=== PATIENT | male | born 1955 | race Caucasian/White ===

== ENCOUNTER 2017-07-08 09:42 | Emergency (ER) | payer OTHER ==
[2017-07-08 09:59] VITALS: BP 110/62
--- NOTE | 2017-07-08 10:25 | UC ---
Cardiac HPI - HPI Summary HPI Summary: States that 2 days ago he was shoveling snow and experienced pain under left arm for which he took a tylenol and an ibuprofen and went to sleep. He states that he continues to have pain about 3/10 baseline which increases when moving his arm. States he is in the process of moving to this area and has been treated in [place]. - History of Current Complaint Chief Complaint: UCChestPain Stated Complaint: RIB PAIN Time Seen by Provider: 07/08/17 10:06 - Allergy/Home Medications Allergies/Adverse Reactions: Allergies Allergy/AdvReac Type Severity Reaction Status Date / Time Acetaminophen [From Tylenol] Allergy GI Upset Verified 07/08/17 10:01 Codeine Allergy GI Upset Verified 07/08/17 10:01 nsaids Allergy See Comment Uncoded 07/08/17 10:01 Home Medications: Home Medications Albuterol inh POWDER (NF) [Proair Respiclick] 108 mcg IN QID PRN 07/08/17 [ History Confirmed 07/08/17] Atenolol [Tenormin 100 MG] 100 mg PO BID 07/08/17 [History Confirmed 07/08/17] Buprenorphine HCl-Naloxone HCl [Suboxone] 2 mis SL DAILY 07/08/17 [History Confirmed 07/08/17] Cetirizine* [ZyrTEC 10 MG TAB*] 10 mg PO DAILY 07/08/17 [History Confirmed 07/08] Cholecalciferol [Vitamin D] 1,000 unit PO DAILY 07/08/17 [History Confirmed 12/18] Diltiazem HCl Coated Beads [Diltiazem HCl ER] 240 mg PO DAILY 07/08/17 [History Confirmed 07/08/17] Divalproex ER TAB(*) [Depakote ER TAB(*)] 250 mg PO DAILY 07/08/17 [History Confirmed 07/08/17] Lamotrigine [Lamictal] 100 mg PO BID 07/08/17 [History Confirmed 07/08/17] Methylphenidate HCl [Aptensio Xr] 30 mg .ROUTE DAILY 07/08/17 [History Confirmed 07/08/17] Multiple Vitamins W/ Minerals [Multivitamin Adults] 1 tab PO DAILY 07/08/17 [ History Confirmed 07/08/17] Multiple Vitamins W/ Minerals [Preservision Areds 2 + Mu] 1 tab PO DAILY [History Confirmed 07/08/17] Naloxone Nasal [place]* [Narcan Nasal [place]] 4 mg NASAL DAILY PRN 07/08/17 [ History Confirmed 07/08/17] Omeprazole CAP* [Prilosec CAP* 20 MG] 20 mg PO DAILY 07/08/17 [History Confirmed 07/08/17] QUEtiapine TAB* [SEROquel TAB*] 100 mg PO BEDTIME 07/08/17 [History Confirmed ] Sildenafil Citrate [Viagra] 100 mg PO DAILY PRN 07/08/17 [History Confirmed 12/18] ValACYclovir (*) [Valtrex 500 mg (*)] 500 mg PO DAILY 07/08/17 [History Confirmed 07/08/17] Warfarin TAB(*) [Coumadin TAB(*)] 10 mg PO DAILY 07/08/17 [History Confirmed 12/18] buPROPion SR TAB* [Wellbutrin SR TAB*] 200 mg PO BID 07/08/17 [History Confirmed 07/08/17] PMH/Surg Hx/FS Hx/Imm Hx Previously Healthy: Yes Cardiovascular History: Atrial Fibrillation Psychological History: Bipolar Disorder - Surgical History Surgical History: Yes Surgery Procedure, Year, and Place: gastric bypass, shoulder surgery. UVVP - Social History Alcohol Use: None Substance Use Type: Marijuana Substance Use Comment - Amount & Last Used: on buprenorphine Smoking Status (MU): Former Smoker Have You Smoked in the Last Year: Yes When Did the Patient Quit Smoking/Using Tobacco: December 2016 - Immunization History Most Recent Influenza Vaccination: fall 2016 Review of Systems All Other Systems Reviewed And Are Negative: Yes Physical Exam Triage Information Reviewed: Yes Appearance: No Pain Distress, Thin Vital Signs: Initial Vital Signs Temp 98.1 F 07/08/17 09:53 Pulse 105 07/08/17 09:53 Resp 16 07/08/17 09:53 BP 110/62 07/08/17 09:53 Pulse Ox 100 07/08/17 09:53 Vital Signs Reviewed: Yes Eye Exam: Normal ENT: Positive: Pharynx normal Neck exam: Normal Neck: Positive: Supple, Nontender, No Lymphadenopathy Respiratory: Positive: Lungs clear, No respiratory distress, No accessory muscle use - tenderness on palpation on left axilla and left shoulder on insertion of trapezius muscle Cardiovascular Exam: Other - bradycardia, with irregular rhythm - Assessment/Plan Course Of Treatment: muscle sprain. Start ibuprofen with food as indicated for 24 hrs and whenever needed thereafter for pain control. Range of motion as tolerated. Follow up with PCP - Clinical Impression Provider Diagnoses: Muscle sprain Discharge - Discharge Plan Condition: Stable Disposition: HOME Patient Education Materials: Musculoskeletal Pain (ED) Referrals: Christian Carter MD [Primary Care Provider] -
== END 2017-07-08 10:44 | disposition home or self-care (01) ==
LOC: UCEAST 09:42
DX: S46.912A Strain of unspecified muscle, fascia and tendon at shoulder and upper arm level, left arm, initial encounter (principal); R07.81 Pleurodynia; I48.91 Unspecified atrial fibrillation; Z79.01 Long term (current) use of anticoagulants; Z88.6 Allergy status to analgesic agent; Z88.5 Allergy status to narcotic agent; Z87.891 Personal history of nicotine dependence; X58.XXXA Exposure to other specified factors, initial encounter; Y92.9 Unspecified place or not applicable
CPT/HCPCS: 93005; 99212; G0463

== ENCOUNTER 2019-03-23 08:27 | Inpatient (IN) | payer OTHER ==
--- NOTE | 2019-03-23 08:56 | ED ---
Abdominal Pain/Male - HPI Summary HPI Summary: 63 year old M presenting to [facility] complains of severe right lower quadrant abdominal pain after doing some heavy lifting 3 weeks ago. Patient states he is from [place]. Patient states that he went to the ER in [place] 3 weeks ago where he had blood work done which showed elevated INR. Patient states he was discharged from the ER. Patient states that the right lower quadrant abdominal pain is back, describes the pain as sharp, and rates the pain 3/10 in severity. Patient reports dark stools. Patient states he called his doctor in [place] who recommended that he go to ER. Patient reports right leg weakness. Patient reports headache. Patient denies slurred speech, blurred vision. Patient states he recently took NSAIDs to treat his pain. Symptoms aggravated by movement. Symptoms alleviated by nothing. Patient states he has hx atrial fibrillation for which he takes Coumadin. Patient states he has hx gastric bypass. Last colonoscopy was in 2003. - History of Current Complaint Chief Complaint: EDAbdPain Stated Complaint: LOW ABD PAIN, BLACK STOOL Time Seen by Provider: 03/23/19 08:45 Hx Obtained From: Patient Onset/Duration: Lasting Weeks - 3, Still Present Severity Currently: Mild Pain Intensity: 3 Pain Scale Used: 0-10 Numeric Location: Discrete At: RLQ Character: Sharp Aggravating Factor(s): Movement Alleviating Factor(s): Nothing Associated Signs And Symptoms: Positive: Negative - blurred vision, slurred speech, Other - dark stools, right leg weakness, headache - Allergies/Home Medications Allergies/Adverse Reactions: Allergies Allergy/AdvReac Type Severity Reaction Status Date / Time codeine Allergy GI Upset Verified 03/23/19 08:35 NSAIDS (Non-Steroidal AdvReac Mild See Comment Verified 03/23/19 17:12 Anti-Inflamma PMH/Surg Hx/FS Hx/Imm Hx Cardiovascular History: Reports: Hx Atrial Fibrillation Respiratory History: Reports: Hx Chronic Obstructive Pulmonary Disease (COPD) Denies: Hx Sleep Apnea Sensory History: Reports: Hx Contacts or Glasses Opthamlomology History: Reports: Hx Contacts or Glasses - Surgical History Surgery Procedure, Year, and Place: gastric bypass, shoulder surgery. UVVP. colonoscopy Infectious Disease History: No Infectious Disease History: Denies: Traveled Outside the [place] in Last 30 Days - Family History Known Family History: Positive: Other - atrial fibrillation in father - Social History Alcohol Use: None Hx Substance Use: Yes Substance Use Type: Reports: Marijuana Substance Use Comment - Amount & Last Used: on buprenorphine Hx Tobacco Use: Yes Smoking Status (MU): Former Smoker - quit 2018 Have You Smoked in the Last Year: Yes Review of Systems Negative: Blurred Vision Positive: Abdominal Pain - RLQ, Other - dark stools Positive: Headache, Weakness - right leg. Negative: Slurred Speech All Other Systems Reviewed And Are Negative: Yes Physical Exam - Summary Physical Exam Summary: VITAL SIGNS: Reviewed. GENERAL: Patient is a well-developed and nourished male who is lying comfortable in the stretcher. Patient is not in any acute respiratory distress. HEAD AND FACE: Normocephalic and atraumatic. EYES: PERRLA, EOMI x 2, No injected conjunctiva. EARS: Hearing grossly intact. Ear canals and tympanic membranes are WNL. MOUTH: Oropharynx within normal limits. NECK: Supple, trachea is midline, no adenopathy, no JVD. CHEST: Symmetric, no tenderness at palpation. LUNGS: Clear to auscultation bilaterally. No wheezing or crackles. CVS: RRR, S1 and S2 present, no murmurs or gallops appreciated. ABDOMEN: There is a bulging area in RLQ which is mildly tender without rebound and guarding Rectal exam chaperoned by nurse Rizzo: There are no hemorrhoids, there is no gross blood or melena EXTREMITIES: FROM in all major joints, no edema, no cyanosis or clubbing. NEURO: Alert and oriented x 3. No acute neurological deficits. Speech is normal. SKIN: Dry and warm. Triage Information Reviewed: Yes Vital Signs On Initial Exam: Initial Vitals Temp Pulse Resp BP Pulse Ox 97.4 F 69 16 132/90 100 03/23/19 08:28 03/23/19 08:28 03/23/19 08:28 03/23/19 08:28 03/23/19 08:28 Vital Signs Reviewed: Yes Diagnostics - Vital Signs Vital Signs Temp Pulse Resp BP Pulse Ox 03/23/19 08:28 97.4 F 69 16 132/90 100 - Laboratory Result Diagrams: 03/23/19 09:17 03/23/19 09:17 Lab Statement: Any lab studies that have been ordered have been reviewed, and results considered in the medical decision making process. - CT CT Abdomen/Pelvis CT Interpretation Completed By: Radiologist Summary of CT Findings: 1. The thick-walled hyperemic appendix is 8 mm in caliber. A periappendiceal rim-enhancing fluid collection measures up to 8.4 cm. This constellation of findings is most suggestive of ruptured appendicitis. A mucinous neoplasm of the appendix is possible but statistically less likely. 2. Status post bariatric surgery. ED physician has reviewed this report. - EKG 0918 Cardiac Rate: NL - 64 BPM EKG Rhythm: Atrial Fibrillation Summary of EKG Findings: Atrial fibrillation at [address] elevations Re-Evaluation - Re-Evaluation First Eval Re-Evaluation Time: 11:34 Change: Unchanged Comment: Dr. Walters, radiology, called to report on CT Abd/Pel findings Second Eval Re-Evaluation Time: 12:17 Change: Unchanged Comment: Dr. Carolina, surgery, in ED to see patient Abdominal Pain Male Course/Dx - Course Assessment/Plan: Blood work without any significant abnormality except for hemoglobin 12.8, hematocrit 37, INR 2.98, glucose 103, CRP 95.6, BNP 229. Urinalysis negative for UTI. In the ED course, the patient was given IV fluids. The patient remains with abdominal pain rated only 1/10 in severity. He did not require any pain medications. Abdomen/Pelvic CT impression: 1. The thick-walled hyperemic appendix is 8 mm in caliber. A periappendiceal rim- enhancing fluid collection measures up to 8.4 cm. This constellation of findings is most suggestive of ruptured appendicitis. A mucinous neoplasm of the appendix is possible but statistically less likely. 2. Status post bariatric surgery. In the ED course, the patient remained stable. Since the patient has a ruptured appendicitis, the patient was given Zosyn. I discussed my physical exam and findings with Dr. Carolina from surgery who came to the ED and examined the patient and accepted the patient for admission to his services. The patient is hemodynamically stable alert and oriented 3. After admission the patient complained of pain, therefore the patient was given morphine and Zofran. - Diagnoses Provider Diagnoses: Appendicitis - Provider Notifications Discussed Care Of Patient With: Nando Carolina Time Discussed With Above Provider: 11:57 Instructed by Provider To: Other - Dr. Carolina, surgery, agrees to accept patient Discharge ED - Sign-Out/Discharge Documenting (check all that apply): Patient Departure - Admit Patient Received Moderate/Deep Sedation with Procedure: No - Discharge Plan Condition: Stable Disposition: ADMITTED TO [facility] - Billing Disposition and Condition Condition: STABLE Disposition: Admitted to [facility] - Attestation Statements Document Initiated by Ebonye: Yes Documenting Scribe: Barbra Kay Provider For Whom Clarissaibe is Documenting (Include Credential): Vini Mendoza MD Scribe Attestation: IBarbra, scribed for Vini Mendoza MD on 03/23/19 at 1838. Scribe Documentation Reviewed: Yes Provider Attestation: The documentation as recorded by the Barbra chua accurately reflects the service I personally performed and the decisions made by me, Vini Mendoza MD Status of Scribe Document: Viewed
[2019-03-23 09:28] LABS: ABS Basophils 0.1 10^3/ul (0-0.2); ABS Eosinophils 0.2 10^3/ul (0-0.6); ABS Lymphocytes 1.4 10^3/ul (1.0-4.8); ABS Monocytes 0.7 10^3/ul (0-0.8); ABS Neutrophils 8.5 10^3/ul (1.5-7.7); Eosinophil % 1.8 %; Hematocrit 37 % (42-52); Hemoglobin 12.8 g/dL (14.0-18.0); Lymphocyte % 12.8 %; Mean Corpuscular HGB Conc 34 g/dL (31-36); Mean Corpuscular Hemoglobin 32 pg (27-31); Mean Corpuscular Volume 95 fL (80-94); Mean Platelet Volume 6.9 fL (7.4-10.4); Platelet Count 422 10^3/uL (150-450); Red Blood Count 3.94 10^6 /uL (4.18-5.48); Red Cell Distribution Width 13 % (10-15); White Blood Count 10.8 10^3/uL (3.5-10.8)
[2019-03-23 09:33] LABS: INR 2.98 (0.82-1.09)
[2019-03-23 09:46] LABS: Albumin 3.3 g/dL (3.2-5.2); Albumin/Globulin Ratio 1.1 (1-3); BUN/Creatinine Ratio 26.8 (8-20); C Reactive Protein 95.61 mg/L (<8.01); EGFR African American 136.5 (>60); EGFR Non-African American 112.8 (>60); Globulin 3.1 g/dL (2-4); Magnesium 1.9 mg/dL (1.9-2.7); Potassium 3.9 mmol/L (3.5-5.0); Total Bilirubin 0.3 mg/dL (0.2-1.0); Total Protein 6.4 g/dL (6.4-8.9)
[2019-03-23 10:15] LABS: Urine Appearance Clear; Urine Bilirubin Negative (Negative); Urine Blood Negative (Negative); Urine Color Yellow; Urine Glucose Negative (Negative); Urine Ketones Negative (Negative); Urine Nitrite Negative (Negative); Urine Protein Negative (Negative); Urine Specific Gravity 1.012 (1.010-1.030); Urine Urobilinogen Negative (Negative)
[2019-03-23] MEDS ORDERED: Iohexol 300* (CONTRAST) 10 ML SDV IV ONE (10:17)
[2019-03-23] MEDS ORDERED: Piperacillin/Tazobac ADVAN(*) 3.375 GM in NS 0.9% 100 ML* 100 ML IVPB ONE (11:37)
[2019-03-23] MEDS ORDERED: Ondansetron INJ* 2 MG/ML VIAL IV ONE (12:23)
[2019-03-23] MEDS ORDERED: Morphine 4 MG/ML VIAL (1 ml) 4 MG/ML VIAL IV ONE (12:23)
[2019-03-23] MEDS ORDERED: Acetaminophen TAB* 325 MG PO PRN (14:02)
[2019-03-23] MEDS: oxyCODONE/Acetamin 5/325 MG* TAB PO PRN ×3 (14:40→23:15)
--- NOTE | 2019-03-23 18:14 | HP ---
HISTORY AND PHYSICAL: DATE OF ADMISSION: CHIEF COMPLAINT: Abdominal pain, right lower quadrant mass. HISTORY OF PRESENT ILLNESS: This is a pleasant 63-year-old gentleman who presented to the emergency room after 3 weeks of lower abdominal discomfort that started with physical activity. 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 He noticed some pain in his right lower quadrant; at that time, he noticed a bulge in the area as well. No nausea or vomiting. No fevers or chills. No difficulty with diet or bowel movements. He was seen in the emergency room in [place] and was thought to possibly have gastroenteritis. According to the patient, no x-rays were performed and he was discharged. As the pain continued when he came to area here, he presented to the emergency room. Workup here included laboratory studies which showed a normal white cell count of 10.8, an elevated C-reactive protein of 95, normal BUN and creatinine, lipase of 10. He had a CT scan of the abdomen and pelvis which revealed a mass in the right lower quadrant, impression of which along with his appendix revealed thick walled hyperemic appendix 8 mm in caliber, a periappendiceal enhancing fluid collection measuring up to 8.4 cm. The impression was that the constellation of findings is most suggestive of appendicitis, however, a mucinous neoplasm of the appendix is possible, but it is typically less likely. In the emergency room , he was in no acute distress. His vital signs were stable. PAST MEDICAL HISTORY: Afib, otherwise denies history of cardiac, liver, kidney , or lung disease. No history of GI disease. His last colonoscopy was over 10 years ago. PAST SURGICAL HISTORY: He had gastric bypass a number of years ago when he lost a significant amount of weight and kept it off. He states he was over 300 pounds. He has followed his diet regimen and he has not gained any weight back. MEDICATIONS: coumadin. ALLERGIES: CODEINE and NSAIDS were listed. FAMILY HISTORY: Denies history of colorectal or breast cancer. SOCIAL HISTORY: No tobacco or alcohol use. REVIEW OF SYSTEMS: As per history of present illness. HEENT: No changes in vision, hearing, or swallowing. No sore throat. Cardiac: No chest pain. Pulmonary: No cough. GI: No blood per rectum. : No hematuria. Skin: Denies rash. Neuro: No headache or dizziness. Musculoskeletal: No extremity weakness. Psych: No anxiety or depression. PHYSICAL EXAMINATION VITAL SIGNS: He is afebrile. Vital signs stable. His BMI is 20.3. He is 6 feet, 150 pounds. HEENT: His sclerae are anicteric. Oral mucosa is pink and moist. NECK: Supple. No JVD. No masses. LUNGS: Clear. HEART: Regular. ABDOMEN: Flat, soft. Surgical scars noted. He is nontender. There is a soft mass noted in the right lower quadrant which is not tender. No signs of peritonitis. No guarding, no rebound. EXTREMITIES: No clubbing, cyanosis, or edema. NEURO: Grossly intact. No focal motor or sensory deficits. SKIN: No rash, petechiae, or jaundice. IMPRESSION: Periappendiceal swelling, mass in the right lower quadrant. I would expect him to be in more pain, to have an elevated white blood cell count , fever, or other symptoms or signs if this was perforated appendicitis with abscess. I am therefore concerned about the possibility of a mucinous neoplasm. The patient is anticoagulated for atrial fibrillation. PLAN: Admission, IV hydration, broad-spectrum antibiotics, hold anticoagulation , and a potential surgical intervention in next 24 to 48 hours. This was discussed with the patient. He is in agreement with the treatment plans and all questions were answered. [id number]/CPS #: [id number] MTDStar
[2019-03-23] MEDS: Piperacillin/Tazobac ADVAN(*) 3.375 GM in NS 0.9% 100 ML* 100 ML IVPB SCH (18:16)
[2019-03-24] MEDS: QUEtiapine TAB* 100 MG PO SCH ×2 (01:18→23:10)
[2019-03-24] MEDS: Atenolol TAB* 50 MG PO SCH ×3 (01:19→20:10)
[2019-03-24] MEDS: lamoTRIgine TAB(*) 100 MG PO SCH ×3 (01:19→20:10)
[2019-03-24] MEDS: buPROPion SR TAB.SR* 200 MG PO SCH ×3 (01:19→20:10)
[2019-03-24] MEDS: Piperacillin/Tazobac ADVAN(*) 3.375 GM in NS 0.9% 100 ML* 100 ML IVPB SCH ×3 (02:20→17:56)
[2019-03-24] MEDS: oxyCODONE/Acetamin 5/325 MG* TAB PO PRN ×2 (03:39→08:33)
--- NOTE | 2019-03-24 08:20 | PN ---
Progress Note - Progress Note Date of Service: 03/24/19 SOAP: Subjective: []rlq "ache", tolerating diet, no n/v Objective: []up walking in room appears completely comfortable Temp Pulse Resp BP Pulse Ox 97.6 F 57 17 110/76 98 03/24/19 07:20 03/24/19 07:20 03/24/19 07:20 03/24/19 07:20 03/24/19 07:20 abdomen soft, nd nontender, rlq mass Assessment: []rlq mass, awaiting labs I would expect a more severe clinical picture with appendicitis with abscess, ? mucinous adenoma Plan: []surgical intervention pending INR result
[2019-03-24] MEDS: Pantoprazole TAB * 40 MG TAB PO SCH (08:34)
[2019-03-24] MEDS: Cetirizine* 10 MG TAB PO SCH (08:34)
[2019-03-24] MEDS: Cholecalciferol TAB* 1000 UNITS PO SCH (08:34)
[2019-03-24] MEDS: Diltiazem CD CAP* 240 MG PO SCH (08:34)
[2019-03-24] MEDS: ValACYclovir (*) 500 MG TAB PO SCH (08:35)
[2019-03-24] MEDS: Divalproex ER TAB(*) 250 MG PO SCH (08:35)
[2019-03-24] MEDS ORDERED: Influenza VAC *QUAD* 2019-20* 0.5 ML SYRINGE IM ONE (09:00)
[2019-03-24 09:05] LABS: ABS Basophils 0.1 10^3/ul (0-0.2); ABS Eosinophils 0.2 10^3/ul (0-0.6); ABS Lymphocytes 1.5 10^3/ul (1.0-4.8); ABS Monocytes 0.6 10^3/ul (0-0.8); ABS Neutrophils 6.2 10^3/ul (1.5-7.7); Eosinophil % 2.6 %; Hematocrit 40 % (42-52); Hemoglobin 13.3 g/dL (14.0-18.0); Lymphocyte % 17.5 %; Mean Corpuscular HGB Conc 34 g/dL (31-36); Mean Corpuscular Hemoglobin 32 pg (27-31); Mean Corpuscular Volume 95 fL (80-94); Mean Platelet Volume 6.7 fL (7.4-10.4); Platelet Count 470 10^3/uL (150-450); Red Blood Count 4.18 10^6 /uL (4.18-5.48); Red Cell Distribution Width 13 % (10-15); White Blood Count 8.5 10^3/uL (3.5-10.8)
[2019-03-24 09:12] LABS: INR 2.44 (0.82-1.09)
[2019-03-24 09:25] LABS: BUN/Creatinine Ratio 18.2 (8-20); Calcium 9.1 mg/dL (8.6-10.3); EGFR African American 124.3 (>60); EGFR Non-African American 102.7 (>60); Potassium 4.5 mmol/L (3.5-5.0)
[2019-03-24] MEDS ORDERED: Phytonadione Oral Solution* 5 MG/25 ML UDC PO ONE (09:48)
[2019-03-24] MEDS: Ketorolac INJ* 15 MG/ML 1 ML VIAL IV PUSH PRN (11:43)
[2019-03-24] MEDS: oxyCODONE TAB* 5 MG TAB PO PRN ×4 (11:43→23:10)
[2019-03-25] MEDS: Piperacillin/Tazobac ADVAN(*) 3.375 GM in NS 0.9% 100 ML* 100 ML IVPB SCH ×3 (01:50→18:59)
[2019-03-25] MEDS: oxyCODONE TAB* 5 MG TAB PO PRN ×2 (05:21→08:31)
[2019-03-25] MEDS: lamoTRIgine TAB(*) 100 MG PO SCH ×2 (08:26→20:20)
[2019-03-25] MEDS: Pantoprazole TAB * 40 MG TAB PO SCH (08:26)
[2019-03-25] MEDS: ValACYclovir (*) 500 MG TAB PO SCH (08:26)
[2019-03-25] MEDS: Cholecalciferol TAB* 1000 UNITS PO SCH (08:26)
[2019-03-25] MEDS: Atenolol TAB* 50 MG PO SCH ×2 (08:26→20:20)
[2019-03-25] MEDS: Diltiazem CD CAP* 240 MG PO SCH (08:27)
[2019-03-25] MEDS: Cetirizine* 10 MG TAB PO SCH (08:27)
[2019-03-25] MEDS: buPROPion SR TAB.SR* 200 MG PO SCH ×2 (08:27→20:20)
[2019-03-25] MEDS: Divalproex ER TAB(*) 250 MG PO SCH (08:27)
[2019-03-25 08:56] LABS: INR 1.45 (0.82-1.09)
[2019-03-25] MEDS: Ketorolac INJ* 15 MG/ML 1 ML VIAL IV PUSH PRN ×2 (12:20→19:39)
[2019-03-25] MEDS ORDERED: Bupivacaine 0.5%* 50 ML MDV VIAL ONE (13:40)
[2019-03-25] MEDS ORDERED: Propofol* 10 MG/ML 20 ML BTL ONE (13:41)
[2019-03-25] MEDS ORDERED: fentaNYL* 50 MCG/ML 2 ML VIAL (100 MCG VIAL) ONE ×2 (13:42→15:58)
[2019-03-25] MEDS ORDERED: Midazolam* 1 MG/ML 5 ML VIAL (5 MG) ONE (13:42)
[2019-03-25] MEDS ORDERED: Rocuronium* 10 MG/ML VIAL ONE ×2 (13:45→13:46)
[2019-03-25] MEDS ORDERED: Dexamethasone IV* 4 MG/ML 1 ML (4 MG) ONE (14:05)
[2019-03-25] MEDS ORDERED: EPHEDrine (Pressors)* 50 MG/ML VIAL ONE (14:06)
[2019-03-25] MEDS ORDERED: Naloxone* 0.4 MG/ML 1 ML VIAL IV PRN (14:23)
[2019-03-25] MEDS ORDERED: Ondansetron INJ* 2 MG/ML VIAL IV PRN (14:23)
[2019-03-25] MEDS ORDERED: DiMENhydriNATE IV* 50 MG/ML VIAL IV PUSH PRN (14:23)
--- NOTE | 2019-03-25 14:39 | CONS ---
HOSPITAL MEDICINE CONSULTATION REPORT: DATE OF CONSULT: 03/25/19 PROVIDER: Meeta Johnston NP ATTENDING PHYSICIAN: Dr. Carolina. CONSULTING PHYSICIAN: Dr. Jane Bolanos (dictated by Meeta Johnston NP). REASON FOR CONSULT: Co-management of chronic medical conditions. HISTORY OF PRESENT ILLNESS: Mr. Yu is a 63-year-old male with a past medical history significant for atrial fibrillation, on chronic anticoagulation with Coumadin; bipolar disease; and COPD, who presented to the emergency room with complaints of right lower quadrant abdominal pain x3 weeks. The patient reports that he has had intermittent right lower quadrant pain for the last 3 weeks. The patient reports that he is here visiting his mother at [facility] from [place] and had more consistent right lower quadrant abdominal pain, he called his primary care doctor, who recommended he come to the emergency room for further evaluation. The patient does report that he has had dark green to robles stools. Denies any black or tarry stools. Denies any blood in the stool. He denies any nausea, vomiting, vomiting up blood. He does report an aching pain to his right lower quadrant that comes and goes and has periods of more intense pain and due to these symptoms, he presented to the emergency room. While in the emergency room, the patient did have a CT of the abdomen. He was found to have the thick walled hyperemic appendix 8 mm in caliber, a periappendiceal rim enhancing fluid collection measuring up to 8.4 cm, constellation of findings is most suggestive of ruptured appendicitis, a mucinous neoplasm of the appendix is also possible, but this is statistically less likely. Given the findings of possible ruptured appendicitis, the patient was admitted by Surgery for further management. Please refer to dictated H and P from Dr. Carolina for complete details. Due to the patient's history of atrial fibrillation and bipolar disorder, Hospital Medicine was asked to see and evaluate the patient to help co-manage his chronic medical conditions. PAST MEDICAL HISTORY: Significant for: 1. Atrial fibrillation, on chronic anticoagulation with Coumadin. 2. Bipolar. 3. COPD. PAST SURGICAL HISTORY: 1. UVVP. 2. Gastric bypass Cb-en-Y. 3. Right rotator cuff surgery. 4. Hernia repair. HOME MEDICATIONS: Include: 1. Zyrtec 10 mg p.o. daily. 2. Atenolol 100 mg p.o. b.i.d. 3. ProAir 100 mcg inhaled 4 times a day as needed. 4. Acetaminophen 325 mg p.o. q.6 hours as needed. 5. Depakote 250 mg p.o. daily. 6. Vitamin D 1000 units p.o. daily. 7. Viagra 100 mg p.o. daily p.r.n. 8. Seroquel 150 mg p.o. at bedtime. 9. Omeprazole 20 mg p.o. daily. 10. Narcan nasal spray daily p.r.n. 11. Multivitamin with minerals 1 tab p.o. daily. 12. Lamictal 100 mg p.o. b.i.d. 13. Diltiazem 240 mg p.o. daily. 14. Wellbutrin 200 mg p.o. b.i.d. 15. Coumadin 10 mg p.o. daily. 16. Valacyclovir 100 mg p.o. daily. ALLERGIES: To CODEINE and NSAIDs. FAMILY HISTORY: Father with a history of stroke and atrial fibrillation. No reported history of diabetes. Grandfather with leukemia. SOCIAL HISTORY: The patient reports he quit smoking 1.5 years ago. Prior to that he smoked for 7 years, 1 pack a day. Denies any alcohol use. He does report daily cannabis use. He is not employed. He is single. He lives alone in [place]. Surrogate decision maker in the event he is unable to make his own decisions is his mother. He is a full code. REVIEW OF SYSTEMS: The patient denies any fevers, chills, unintended weight loss. Denies any chest pain or edema. No cough, hemoptysis, or shortness of breath. He does report some mild nausea. Denies any diarrhea. He does report right lower quadrant abdominal aching pain. He denies any gross hematuria, dysuria, frequency or urgency. He denies any black or tarry stools, vomiting up blood. Denies any focal weakness or sensory loss. No visual complaints, dysphagia, arthralgias, myalgias, rashes, lesions, open sores, psychosis, or anxiety. PHYSICAL EXAM: General: At this time, Mr. Yu is alert and oriented, resting in his hospital bed, he is in no acute distress. Vital Signs: Temperature 98.1, heart rate 59, respirations 16, O2 saturation 100%, blood pressure 113/68. HEENT: Head is atraumatic, normocephalic. Eyes: EOMs are intact. Sclerae anicteric and not pale. Oral mucosa appeared to be moist. Neck is supple. Lungs are clear to auscultation bilaterally. No wheezes, rales , or rhonchi. Cardiac: S1, S2. Irregular rate and rhythm. No rubs or gallops. Abdomen is soft with tenderness noted to the right lower quadrant with palpation. He does have a palpable mass in the right lower quadrant. Abdomen is soft. Bowel sounds are hypoactive x4. Extremities: He is able to move all 4 extremities with 5/5 strength. There is no clubbing or cyanosis. Neurologic: He is awake, alert, and oriented x3. Speech is clear. Thought process is intact. There is no gross focal deficits. Skin is intact. DIAGNOSTIC STUDIES/LAB DATA: WBCs are 8.5, RBCs 4.18, hemoglobin 13.3, hematocrit was 40, platelet count was 470. INR was 1.45. Sodium 138, potassium 4.5, chloride 101, carbon dioxide was 34, anion gap was 3, BUN was 14 , creatinine 0.77, glucose is 93. C-reactive protein on admission on 03/23/19 was 95.61 and lipase was 10. Urine was within normal limits. He had a CT of the abdomen and pelvis, radiologist's impression: The thick walled hyperemic appendix is 8 mm in caliber. There is a periappendiceal rim enhancing fluid collection measures up to 8.4 cm, this constellation of findings is most suggestive of a ruptured appendicitis. Mucinous neoplasm of the appendix is possible, this is statistically less likely. Status post bariatric surgery. He had an electrocardiogram showed atrial fibrillation, rate of 64, does have T - wave inversions in lead III. ASSESSMENT AND PLAN: Mr. Yu is a 63-year-old male with a past medical history significant for atrial fibrillation, bipolar and chronic obstructive pulmonary disease, who presented to [facility] with right lower quadrant abdominal pain , found to have possible ruptured appendix and was admitted by Surgery. Hospital Medicine was asked to co-manage his chronic medical conditions. Our recommendations are as follows: 1. Right lower quadrant abdominal pain. Pain management per Surgery. 2. Atrial fibrillation. The patient should continue on his atenolol and diltiazem as previously prescribed with holding parameters for SBP less than 110 and HR less than 60. He should be bridged with Lovenox postoperatively and Coumadin should be resumed as soon as possible. The bridge should be 1 mg/kg bridge postoperatively while transitioning to Coumadin. 3. Bipolar. The patient should continue on his Depakote, Wellbutrin and Lamictal as previously prescribed. 4. Gastric bypass. The patient should continue on his multivitamins and omeprazole as previously prescribed. 5. FEN: As per Surgery. 6. Code status: He is a full code. 7. DVT prophylaxis. As per Surgery, I would recommend SCDs in the interim while on anticoagulation. TIME SPENT: Time spent on this consultation was 45 minutes, greater than half that time was spent at the bedside reviewing events leading thus far to his hospitalization, performing physical exam, and reviewing my plan of care. I have discussed this with my attending, Dr. Jane Bolanos, she is in agreement with my plan. MEETA JOHNSTON, JOSEE [id number]/CPS #: [id number] JOHN
[2019-03-25] MEDS ORDERED: Ondansetron INJ* 2 MG/ML VIAL ONE (15:09)
[2019-03-25] MEDS ORDERED: Sugammadex * 200 MG/2 ML VIAL IV PUSH ONE (15:25)
[2019-03-25] MEDS ORDERED: HYDROmorphone INJ1* 1 MG/ML SYRINGE ONE (15:58)
[2019-03-25] MEDS: fentaNYL* 50 MCG/ML 2 ML VIAL (100 MCG VIAL) IV PRN ×4 (16:00→16:12)
[2019-03-25] MEDS: HYDROmorphone INJ1* 1 MG/ML SYRINGE IV PRN ×3 (16:03→16:17)
[2019-03-25] MEDS ORDERED: Naloxone* 0.4 MG/ML 1 ML VIAL IV PUSH PRN ×2 (16:05→16:14)
[2019-03-25] MEDS ORDERED: HYDROmorphone PCA* 20 MG/20 ML PCA.SYRING ONE (16:23)
[2019-03-25] MEDS ORDERED: HYDROmorphone PCA* 20 MG/20 ML PCA.SYRING PCA SCH (17:00)
[2019-03-25] MEDS ORDERED: Morphine PCA ADULT* 5 MG/ML 30 ML PCA SCH (17:00)
[2019-03-25] MEDS ORDERED: Ketorolac INJ* 30 MG/ML 1 ML VIAL IV PRN (19:38)
[2019-03-25] MEDS: QUEtiapine TAB* 100 MG PO SCH (20:20)
[2019-03-25] MEDS: Pantoprazole IV* 40 MG IV SCH (20:22)
[2019-03-25] MEDS ORDERED: NS 0.9% 1000 ML** 1,000 ML IV ONE ×2 (21:00→21:19)
[2019-03-25] MEDS ORDERED: Diltiazem CD CAP* 240 MG PO SCH (21:20)
--- NOTE | 2019-03-25 21:29 | PN ---
Hospitalist Progress Note Date of Service: 03/25/19 called for Hypotension SBP 80's. Patient alert resting in bed ,color is pale. Patient has received 5.2 MG dilaudid since surgery. patient continues to c/o pain in RLQ. I will order 2 liters Normal bolus, stat CBC. I will also decrease his dose of atenolol.
[2019-03-25 21:51] LABS: Hematocrit 27 % (42-52); Hemoglobin 9.1 g/dL (14.0-18.0); Mean Corpuscular HGB Conc 33 g/dL (31-36); Mean Corpuscular Hemoglobin 32 pg (27-31); Mean Corpuscular Volume 96 fL (80-94); Mean Platelet Volume 6.9 fL (7.4-10.4); Platelet Count 471 10^3/uL (150-450); Red Blood Count 2.85 10^6 /uL (4.18-5.48); Red Cell Distribution Width 13 % (10-15); White Blood Count 25.7 10^3/uL (3.5-10.8)
[2019-03-25 22:09] LABS: ABS Basophils 0.1 10^3/ul (0-0.2); ABS Lymphocytes 0.8 10^3/ul (1.0-4.8); ABS Monocytes 1.5 10^3/ul (0-0.8); ABS Neutrophils 23.4 10^3/ul (1.5-7.7)
[2019-03-25 22:11] LABS: Eosinophil % 0.1 %; Lymphocyte % 3.1 %
[2019-03-25] MEDS: NS 0.9% 1000 ML** 2,000 ML IV ONE ×2 (23:18→23:40)
--- NOTE | 2019-03-26 00:02 | OP ---
DATE OF OPERATION: 03/23/19 - ROOM #ICU-05 DATE OF : 59 SURGEON: Nando Carolina MD MOTORCYCLE DELIVERER: Mark Heredia MD PRE-OP DIAGNOSIS: Appendicitis. POST-OP DIAGNOSIS: Appendicitis, chronic with inflammatory mass. OPERATIVE PROCEDURE: Exploratory laparoscopy converted to open laparotomy, right colectomy. INDICATION FOR PROCEDURE: Right lower quadrant mass concerning for perforated appendicitis versus tumor versus other. Risks included, but not limited to, bleeding, infection, injury to the bowel or other explained to the patient, who seemed to understand and agreed to the procedure, and all questions were answered. DESCRIPTION OF PROCEDURE: The patient was taken to the operating room and placed supine. Preoperative antibiotics were given. After the successful induction of general endotracheal anesthesia, the abdomen was prepped and draped in sterile fashion. A time-out was performed indicating correct patient , correct procedure. A left lower quadrant 5-mm trocar was placed under direct visualization of the camera using a bladeless Optiview trocar. Pneumo- peritoneum was achieved at 15 mmHg. Camera was placed in the abdomen. The abdomen was scanned. There was no obvious injury from trocar placement. A 12- mm umbilical trocar was placed. There was an obvious inflammatory mass in the right lower quadrant and a short attempt was made to gently mobilize this laparoscopically, however, it became obvious that it was too inflamed to do laparoscopically. A midline incision was then made from the umbilicus down towards the pubis and the peritoneal cavity was opened. No purulent fluid was noted. It became obvious that the cecum and a loop of small bowel was stuck up against the right lower quadrant. The small bowel loop was gently dissected free from the surrounding tissue in the area where it was tattooed and oversewn with interrupted silk sutures. There was no hole/no enterotomy in the small bowel, but it was oversewn empirically because of the inflammatory reaction on the serosa. The cecum was then carefully taken off the anterior abdominal wall and the lateral wall and immediately large inflammatory mass was associated with this, could not rule out a malignancy and therefore, we elected to do a right colectomy. Stapled [id number] functional and end-to-end anastomosis was then performed between the distal ileum and mobilized right colon in the distal ascending colon. The mesentery was taken using the LigaSure device and the ileocolic vessels were divided and tied with 0 Vicryl suture. There was no abscess, no purulence. The colon was opened, did not see a luminal mass. No evidence for mucocele was noted. The ureter was identified and avoided during the case. Right lower quadrant was then irrigated and aspirated dry. EBL was approximately 50 cc. Hemostasis was intact. The omentum was placed over the anastomosis. The midline fascia was closed with running #1 PDS suture. The wound was irrigated and the skin was closed with omega. Antibiotic ointment was applied. He tolerated the procedure well. He was extubated. He was taken to the Recovery in stable condition. [id number]/[facility] #: [id number] [facility]TDStar
[2019-03-26 00:08] LABS: BUN/Creatinine Ratio 27.8 (8-20); Calcium 6.8 mg/dL (8.6-10.3); EGFR African American 120.7 (>60); EGFR Non-African American 99.7 (>60); Potassium 4.9 mmol/L (3.5-5.0)
--- NOTE | 2019-03-26 00:54 | PN ---
Hospitalist Progress Note Date of Service: 03/25/190 - patient reevaluated after 2 liters of normal saline, blood pressure remains SBP 80's. Patient is alert and oriented x3 , color is pale , Abd dressing is intact no drainage noted to dressing. abd to tender to touch but soft with slight amount of firmness. pedal pulses are +2 bilat. Lung sounds are clear. Spoke to Dr. Heredia who was updated on lab work and patient's condition. Dr. Heredia felt that the patient did not need septic work up or blood culture as the patient is afebrile and WBC's are likely related to surgery. Will give another 2 liters of Normal saline bolus and repeat H/H at [address]. [address] cortés cath to monitor I/O's. will transfer to ICU for close monitoring with frequent abdominal exams to observe for bleeding. Patient updated on plan.
[2019-03-26 00:59] LABS: Urine Appearance Cloudy; Urine Bilirubin Negative (Negative); Urine Blood Negative (Negative); Urine Color Yellow; Urine Glucose Negative (Negative); Urine Ketones Negative (Negative); Urine Nitrite Negative (Negative); Urine Protein Negative (Negative); Urine Specific Gravity 1.016 (1.010-1.030); Urine Urobilinogen Negative (Negative)
[2019-03-26] MEDS ORDERED: Morphine INJ* 2 MG/ML 1 ML SYRINGE (TWO MG - NEW SYRINGE VERSION) IV PRN (01:12)
[2019-03-26 02:07] LABS: Hematocrit 20 % (42-52); Hemoglobin 6.5 g/dL (14.0-18.0)
[2019-03-26] MEDS: Piperacillin/Tazobac ADVAN(*) 3.375 GM in NS 0.9% 100 ML* 100 ML IVPB SCH ×3 (03:05→17:44)
--- NOTE | 2019-03-26 03:31 | PN ---
Progress Note - Progress Note Date of Service: 03/26/19 SOAP: Subjective: Called earlier this evening with post-operative hypotension and diaphoresis on SSSU after undergoing an open right hemicolectomy afternoon of 03/25/19 Nurses note patient pale and complaining of abdominal pain despite using LUMBER [employer]ER, no tachycardia EBL at OR 50 cc's, he received 1.5 liters of crystalloid operatively He received his 100 mg of oral atenolol earlier in the evening-his usual dose Pre-operative Hgb 13 yesterday morning. Hgb at 1030 PM 9.1, lactate normal He was transferred to ICU for closer evaluation and cortés catheter placed Over last 4 hours BP in the 70's-90's and urine output has improved Repeat Hgb at 0200 6.5 after total of 4L NS in last 3 hours He is awake and alert, very pale, skin dry Objective: Temp Pulse Resp BP Pulse Ox 98.5 F 89 17 91/58 99 03/25/19 23:29 03/26/19 03:00 03/26/19 03:00 03/26/19 03:00 03/26/19 03:00 PEX: Awake and alert, very pale Lungs are clear Cor is RRR, slightly rapid Abd is firm and distended. Dressing intact. Tender throughout. Laboratory Results - last 24 hr 03/25/19 03/25/19 03/25/19 08:19 21:40 21:40 WBC 25.7 H RBC 2.85 L Hgb 9.1 L Hct 27 L MCV 96 H MCH 32 H MCHC 33 RDW 13 Plt Count 471 H MPV 6.9 L Neut % (Auto) 90.8 Lymph % (Auto) 3.1 Bureau % (Auto) 5.8 Eos % (Auto) 0.1 Baso % (Auto) 0.2 Absolute Neuts (auto) 23.4 H Absolute Lymphs (auto) 0.8 L Absolute Monos (auto) 1.5 H Absolute Eos (auto) 0.0 Absolute Basos (auto) 0.1 Absolute Nucleated RBC 0.0 Immature Gran % 31.0 H Neutrophils % 60.0 Band Neutrophils % 31.0 H Lymphocytes % 5.0 Monocytes % 4.0 Nucleated RBC % 0.0 Normal RBC Morphology Normal INR (Anticoag Therapy) 1.45 H Sodium Potassium Chloride Carbon Dioxide Anion Gap BUN Creatinine Est GFR ( Amer) Est GFR (Non-Af Amer) BUN/Creatinine Ratio Glucose Lactic Acid Calcium Urine Color Urine Appearance Urine pH Ur Specific [place] Urine Protein Urine Ketones Urine Blood Urine Nitrate Urine Bilirubin Urine Urobilinogen Ur Leukocyte Esterase Urine Glucose Blood Type A Negative Antibody Screen Negative Crossmatch See Detail 03/25/19 03/25/19 03/26/19 23:35 23:35 00:23 WBC RBC Hgb Hct MCV MCH MCHC RDW Plt Count MPV Neut % (Auto) Lymph % (Auto) Bureau % (Auto) Eos % (Auto) Baso % (Auto) Absolute Neuts (auto) Absolute Lymphs (auto) Absolute Monos (auto) Absolute Eos (auto) Absolute Basos (auto) Absolute Nucleated RBC Immature Gran % Neutrophils % Band Neutrophils % Lymphocytes % Monocytes % Nucleated RBC % Normal RBC Morphology INR (Anticoag Therapy) Sodium 138 Potassium 4.9 Chloride 111 Carbon Dioxide 25 Anion Gap 2 BUN 22 Creatinine 0.79 Est GFR ( Amer) 120.7 Est GFR (Non-Af Amer) 99.7 BUN/Creatinine Ratio 27.8 H Glucose 150 H Lactic Acid 1.7 Calcium 6.8 L Urine Color Yellow Urine Appearance Cloudy Urine pH 5.0 Ur Specific [place] 1.016 Urine Protein Negative Urine Ketones Negative Urine Blood Negative Urine Nitrate Negative Urine Bilirubin Negative Urine Urobilinogen Negative Ur Leukocyte Esterase Negative Urine Glucose Negative Blood Type Antibody Screen Crossmatch 03/26/19 01:55 WBC RBC Hgb 6.5 L Hct 20 L MCV MCH MCHC RDW Plt Count MPV Neut % (Auto) Lymph % (Auto) Bureau % (Auto) Eos % (Auto) Baso % (Auto) Absolute Neuts (auto) Absolute Lymphs (auto) Absolute Monos (auto) Absolute Eos (auto) Absolute Basos (auto) Absolute Nucleated RBC Immature Gran % Neutrophils % Band Neutrophils % Lymphocytes % Monocytes % Nucleated RBC % Normal RBC Morphology INR (Anticoag Therapy) Sodium Potassium Chloride Carbon Dioxide Anion Gap BUN Creatinine Est GFR ( Amer) Est GFR (Non-Af Amer) BUN/Creatinine Ratio Glucose Lactic Acid Calcium Urine Color Urine Appearance Urine pH Ur Specific [place] Urine Protein Urine Ketones Urine Blood Urine Nitrate Urine Bilirubin Urine Urobilinogen Ur Leukocyte Esterase Urine Glucose Blood Type Antibody Screen Crossmatch Assessment: S/P right hemicolectomy 03/25 for apparent acute/chronic appendicitis Post-operative hypotension, persistent after 4 liters of crystalloid rescusitation with significant drop in Hgb to 6.5 Abdominal distension Plan: I discussed post-operative events and findings-concern is persistent post- operative hemorrhage with hypotension/anemia. Options are continued observation with transfusion v return to OR. Discussed operative return with him and with persistent lower BP and drop in H/H I recommend return to OR now for exploratory laparotomy and intra-abdominal evaluation. I feel the benefits outweigh the risks at this point and there is possibility that any bleeding has stopped but existing blood could be removed and abdomen washed out. He would like to proceed with surgery. PLAN: Exploratory Laparotomy now. Procedure discussed with patient and the risks of, but not limited to, of bleeding, infection, abscess, injury to peritoneal and retroperitoneal structures, bowel resection, anesthesia were all explained. He gives his consent to proceed. He has been NPO and will transfuse one unit of PRBC's now pre-operatively.
[2019-03-26] MEDS ORDERED: Lidocaine 2% PF * 5 ML VIAL ONE (04:04)
[2019-03-26] MEDS ORDERED: Propofol* 10 MG/ML 20 ML BTL ONE (04:04)
[2019-03-26] MEDS ORDERED: Succinylcholine* 20 MG/ML 10 ML VIAL ONE (04:04)
[2019-03-26] MEDS ORDERED: Cisatracurium* 2 MG/ML MDV 5 ML ONE (04:05)
[2019-03-26] MEDS ORDERED: fentaNYL* 50 MCG/ML 2 ML VIAL (100 MCG VIAL) ONE (04:05)
[2019-03-26] MEDS ORDERED: Phenylephrine 10 MG/ML VIAL* 1 ML VIAL ONE (04:05)
[2019-03-26] MEDS ORDERED: Calcium CHLORIDE 10% SYRINGE* 1 GM/10 ML ONE (04:25)
[2019-03-26] MEDS ORDERED: Acetaminophen IV 1GM/100ML * 100 ML ONE (05:41)
[2019-03-26] MEDS ORDERED: Dexamethasone IV* 4 MG/ML 1 ML (4 MG) ONE (05:49)
[2019-03-26] MEDS ORDERED: OXYTOCIN* 10 UNITS/ML 1 ML VIAL ONE (05:49)
[2019-03-26] MEDS ORDERED: Bupivacaine 0.5%* 50 ML MDV VIAL ONE (05:50)
[2019-03-26] MEDS ORDERED: fentaNYL* 50 MCG/ML 2 ML VIAL (100 MCG VIAL) IV PRN (05:53)
[2019-03-26] MEDS ORDERED: Naloxone* 0.4 MG/ML 1 ML VIAL IV PRN (05:53)
[2019-03-26] MEDS ORDERED: DiMENhydriNATE IV* 50 MG/ML VIAL IV PUSH PRN (05:53)
[2019-03-26] MEDS ORDERED: Levalbuterol 0.63MG/3ML NEB* UNIT OF USE INH PRN (05:53)
--- NOTE | 2019-03-26 06:28 | OP ---
Operative Report - Blank - Operative Report Date of Operation: 03/26/19 Note: OPERATIVE REPORT Pre-op: Post-operative hypotension, anemia, abdominal distension Post-Op: Same, hemoperitoneum Procedure:Exploratory laparotomy, evacuation of blood and clot, no site of active bleeding identified Surgeon: MD Giovanna Asst: none Anes: general with local , Dr. Ty IVF:1100 cc crystalloid EBL:NR Specimen: none Drain: none Wound: 1 Findings: Large amount of blood and clot in all 4 quadrants of abdomen, large raw right retroperitoneal surface from previous dissection with no active bleeding, non-bleeding liver serosal tear adjacent to gallbladder To PACU
[2019-03-26 07:02] LABS: ABS Lymphocytes 0.7 10^3/ul (1.0-4.8); ABS Neutrophils 16.7 10^3/ul (1.5-7.7); Hematocrit 29 % (42-52); Hemoglobin 9.7 g/dL (14.0-18.0); Lymphocyte % 3.9 %; Mean Corpuscular HGB Conc 34 g/dL (31-36); Mean Corpuscular Hemoglobin 32 pg (27-31); Mean Corpuscular Volume 93 fL (80-94); Mean Platelet Volume 7.1 fL (7.4-10.4); Platelet Count 306 10^3/uL (150-450); Red Blood Count 3.09 10^6 /uL (4.18-5.48); Red Cell Distribution Width 13 % (10-15); White Blood Count 18.5 10^3/uL (3.5-10.8)
[2019-03-26 07:08] LABS: INR 1.33 (0.82-1.09)
[2019-03-26 07:23] LABS: BUN/Creatinine Ratio 29.3 (8-20); Calcium 7.7 mg/dL (8.6-10.3); EGFR African American 128.1 (>60); EGFR Non-African American 105.9 (>60); Potassium 4.8 mmol/L (3.5-5.0)
[2019-03-26] MEDS ORDERED: Morphine INJ* 4 MG/ML 1 ML SYRINGE (NEW SYRINGE VERSION) IV PRN (07:37)
[2019-03-26] MEDS: Cetirizine* 10 MG TAB PO SCH (07:54)
[2019-03-26] MEDS: lamoTRIgine TAB(*) 100 MG PO SCH ×2 (07:55→20:33)
[2019-03-26] MEDS: Divalproex ER TAB(*) 250 MG PO SCH (07:55)
[2019-03-26] MEDS: buPROPion SR TAB.SR* 200 MG PO SCH ×2 (07:55→20:33)
[2019-03-26] MEDS: ValACYclovir (*) 500 MG TAB PO SCH (07:55)
[2019-03-26] MEDS: NS 0.9% 1000 ML** 1,000 ML IV SCH ×2 (07:55→19:07)
[2019-03-26] MEDS: Morphine INJ* 2 MG/ML 1 ML SYRINGE (TWO MG - NEW SYRINGE VERSION) IV PRN ×4 (08:02→14:44)
[2019-03-26] MEDS ORDERED: Diltiazem CD CAP* 240 MG PO SCH (09:00)
[2019-03-26] MEDS ORDERED: Atenolol TAB* 50 MG PO SCH (09:00)
[2019-03-26] MEDS ORDERED: Polyethylene Glycol 3350* 17 GM PACKET PO SCH (09:00)
--- NOTE | 2019-03-26 09:24 | PN ---
Subjective Date of Service: 03/26/19 Interval History: HOSPITALIST PROGRESS NOTE Patient seen and examined at bedside. Care reviewed and d/w Merline Brody RN. He feels better this AM. Wants to drink something. Abdominal pain is controlled. Family History: Unchanged from Admission Social History: Unchanged from Admission Past Medical History: Unchanged from Admission Objective Active Medications: Acetaminophen (Tylenol Tab*) 650 mg PO Q4H PRN PRN Reason: PAIN - MILD Atenolol (Tenormin Tab*) 50 mg PO BID@0900,2100 [facility] Bupropion HCl (Wellbutrin Sr Tab*) 200 mg PO BID [facility] Last Admin: 03/26/19 07:55 Dose: 200 mg Cetirizine HCl (Zyrtec*) 10 mg PO DAILY [facility] Last Admin: 03/26/19 07:54 Dose: 10 mg Divalproex Sodium (Depakote Er Tab(*)) 250 mg PO DAILY [facility] Last Admin: 03/26/19 07:55 Dose: 250 mg Piperacillin Sod/Tazobactam (Sod 3.375 gm/ Sodium Chloride) 100 mls @ 25 mls/ hr IVPB Q8H [facility] Last Admin: 03/26/19 08:02 Dose: 25 mls/hr Sodium Chloride (Ns 0.9% 1000 Ml) 1,000 mls @ 75 mls/hr IV PER RATE [facility] Last Admin: 03/26/19 07:55 Dose: 75 mls/hr Lamotrigine (Lamictal Tab(*)) 100 mg PO BID [facility] Last Admin: 03/26/19 07:55 Dose: 100 mg Morphine Sulfate (Morphine Inj (Syringe))*) 2 mg IV Q1HR PRN PRN Reason: PAIN - MODERATE Last Admin: 03/26/19 08:02 Dose: 2 mg Morphine Sulfate (Morphine Inj (Syringe)*) 4 mg IV Q1HR PRN PRN Reason: PAIN - SEVERE Naloxone HCl (Narcan*) 0.08 mg IV PUSH .Q2MIN PRN PRN Reason: OVERSEDATION Ondansetron HCl (Zofran Inj*) 4 mg IV Q6H PRN PRN Reason: NAUSEA/VOMITING Pantoprazole Sodium (Protonix Iv*) 40 mg IV Q24H [facility] Last Admin: 03/25/19 20:22 Dose: 40 mg Quetiapine Fumarate (Seroquel Tab*) 150 mg PO BEDTIME [facility] Last Admin: 03/25/19 20:20 Dose: 150 mg Valacyclovir HCl (Valtrex 500 Mg (*)) 500 mg PO DAILY [facility] Last Admin: 03/26/19 07:55 Dose: 500 mg Vital Signs - 8 hr 03/26/19 03/26/19 03/26/19 01:30 01:45 01:58 Temperature Pulse Rate 85 80 Respiratory 11 10 10 Rate Blood Pressure 84/53 84/50 (mmHg) O2 Sat by Pulse 98 95 Oximetry 03/26/19 03/26/19 03/26/19 02:00 02:15 02:30 Temperature Pulse Rate 82 86 90 Respiratory 10 15 16 Rate Blood Pressure 88/57 92/61 89/55 (mmHg) O2 Sat by Pulse 97 90 93 Oximetry 03/26/19 03/26/19 03/26/19 02:45 02:49 03:00 Temperature Pulse Rate 99 89 Respiratory 21 14 Rate Blood Pressure 92/54 91/58 (mmHg) O2 Sat by Pulse 97 92 99 Oximetry 03/26/19 03/26/19 03/26/19 03:15 03:30 03:40 Temperature 101.3 F Pulse Rate 87 89 Respiratory 19 17 Rate Blood Pressure 85/57 92/52 (mmHg) O2 Sat by Pulse 100 100 Oximetry 03/26/19 03/26/19 03/26/19 03:46 06:21 06:22 Temperature Pulse Rate 88 99 105 Respiratory 23 11 Rate Blood Pressure 93/57 122/91 (mmHg) O2 Sat by Pulse 100 99 100 Oximetry 03/26/19 03/26/19 03/26/19 06:25 06:27 06:30 Temperature 98.4 F Pulse Rate 100 100 96 Respiratory 16 14 14 Rate Blood Pressure 121/96 122/91 123/79 (mmHg) O2 Sat by Pulse 100 100 100 Oximetry 03/26/19 03/26/19 03/26/19 06:35 06:45 07:11 Temperature Pulse Rate 97 99 86 Respiratory 17 14 15 Rate Blood Pressure 117/74 118/72 (mmHg) O2 Sat by Pulse 100 100 98 Oximetry 03/26/19 03/26/19 03/26/19 07:15 07:30 07:31 Temperature 97.9 F Pulse Rate 97 97 96 Respiratory 14 19 14 Rate Blood Pressure 109/74 119/75 109/74 (mmHg) O2 Sat by Pulse 97 99 97 Oximetry 03/26/19 03/26/19 03/26/19 07:44 08:00 08:02 Temperature 97.9 F Pulse Rate 91 Respiratory 21 16 Rate Blood Pressure 124/78 (mmHg) O2 Sat by Pulse 98 Oximetry Oxygen Devices in Use Now: None Appearance: Pleasant gentleman lying in bed in NAD Eyes: No Scleral Icterus Ears/Nose/Mouth/Throat: Mucous Membranes Moist Neck: Trachea Midline Respiratory: Symmetrical Chest Expansion and Respiratory Effort, Clear to Auscultation Cardiovascular: - - Normal S1 and S2, irregularly irregular Abdominal: - - CDI to midline, mild incisional tenderness, BS+ sluggish Extremities: No Edema Neurological: Alert and Oriented x 3, NL Muscle Strength and Tone Result Diagrams: 03/26/19 06:50 03/26/19 06:50 Assess/Plan/Problems-Billing Assessment: Mr Yu is a 63yo M with PMH of Afib, bipolar, COPD, who presented to ED with c/o RLQ pain, found to have appendicitis. S/p open lap, right colectomy, taken back to OR due to hemoperitoneum. - Patient Problems (1) S/P right colectomy Comment: - Complicated by hemoperitoneum, requiring return to OR. - Continue Zosyn. - Management as per Surgery. (2) Acute blood loss anemia Comment: - S/p 2 PRBC - monitor H/H. (3) Atrial fibrillation Comment: - Rate is controlled. - Continue Atenolol; diltiazem on hold for now. - Will resume anticoagulation when okay with Surgery. (4) Bipolar disorder Comment: - Continue Bupropion, Divalproex, Lamotrigine, and Quetiapine. (5) DVT prophylaxis Comment: - SCDs for now. Start heparin when okay with Surgery. (6) Full code status Status and Disposition: Hospitalist service will continue to follow.
--- NOTE | 2019-03-26 10:05 | PN ---
Progress Note - Progress Note Date of Service: 03/26/19 SOAP: Subjective: Doing well-pain adequately controlled No N/V Objective: Temp Pulse Resp BP Pulse Ox 97.9 F 91 19 113/76 98 03/26/19 07:44 03/26/19 08:00 03/26/19 09:00 03/26/19 09:00 03/26/19 08:00 Intake & Output 03/24/19 03/25/19 03/26/19 03/27/19 06:59 06:59 06:59 06:59 Intake Total 810 1865 3840 0 Output Total 1150 1525 1100 150 Balance -245 139 9259 -150 Weight 150 lb 151 lb 12.718 oz Intake: IV Fluids 100 3840 LR 2600 NS (0.9%) 1240 IVPB 455 ABX - ZOSYN 455 Oral 710 1410 0 0 Output: Urine 1150 1525 400 [place]és 650 150 Estimated Blood Loss 50 Other: Estimated Void Medium # Bowel Movements 0 # Voids 6 PEX: Comfortable Lungs are clear, decreased breath sounds at the bases Cor slightly irregular Abd is soft and non-distended. Dressing intact. Minimal bowel sounds. Ext without edema Laboratory Last Values WBC 18.5 10^3/uL (3.5-10.8) H 03/26/19 06:50 RBC 3.09 10^6 /uL (4.18-5.48) L 03/26/19 06:50 Hgb 9.7 g/dL (14.0-18.0) L 03/26/19 06:50 Hct 29 % (42-52) L 03/26/19 06:50 MCV 93 fL (80-94) 03/26/19 06:50 MCH 32 pg (27-31) H 03/26/19 06:50 MCHC 34 g/dL (31-36) 03/26/19 06:50 RDW 13 % (10-15) 03/26/19 06:50 Plt Count 306 10^3/uL (150-450) 03/26/19 06:50 MPV 7.1 fL (7.4-10.4) L 03/26/19 06:50 Neut % (Auto) 90.5 % 03/26/19 06:50 Lymph % (Auto) 3.9 % 03/26/19 06:50 Lares % (Auto) 5.5 % 03/26/19 06:50 Eos % (Auto) 0.0 % 03/26/19 06:50 Baso % (Auto) 0.1 % 03/26/19 06:50 Absolute Neuts (auto) 16.7 10^3/ul (1.5-7.7) H 03/26/19 06:50 Absolute Lymphs (auto) 0.7 10^3/ul (1.0-4.8) L 03/26/19 06:50 Absolute Monos (auto) 1.0 10^3/ul (0-0.8) H 03/26/19 06:50 Absolute Eos (auto) 0.0 10^3/ul (0-0.6) 03/26/19 06:50 Absolute Basos (auto) 0.0 10^3/ul (0-0.2) 03/26/19 06:50 Absolute Nucleated RBC 0.0 10^3/ul 03/26/19 06:50 Immature Gran % 31.0 % (0-9) H 03/25/19 21:40 Neutrophils % 60.0 % 03/25/19 21:40 Band Neutrophils % 31.0 % (0-8) H 03/25/19 21:40 Lymphocytes % 5.0 % 03/25/19 21:40 Monocytes % 4.0 % 03/25/19 21:40 Nucleated RBC % 0.0 03/26/19 06:50 Normal RBC Morphology Normal (Normal) 03/25/19 21:40 INR (Anticoag Therapy) 1.33 (0.82-1.09) H 03/26/19 06:50 APTT 42.7 seconds (26.0-38.0) H 03/23/19 09:17 Sodium 142 mmol/L (135-145) 03/26/19 06:50 Potassium 4.8 mmol/L (3.5-5.0) 03/26/19 06:50 Chloride 113 mmol/L (101-111) H 03/26/19 06:50 Carbon Dioxide 24 mmol/L (22-32) 03/26/19 06:50 Anion Gap 5 mmol/L (2-11) 03/26/19 06:50 BUN 22 mg/dL (6-24) 03/26/19 06:50 Creatinine 0.75 mg/dL (0.67-1.17) 03/26/19 06:50 Est GFR ( Amer) 128.1 (>60) 03/26/19 06:50 Est GFR (Non-Af Amer) 105.9 (>60) 03/26/19 06:50 BUN/Creatinine Ratio 29.3 (8-20) H 03/26/19 06:50 Glucose 179 mg/dL (70-100) H 03/26/19 06:50 Lactic Acid 1.7 mmol/L (0.5-2.0) 03/25/19 23:35 Calcium 7.7 mg/dL (8.6-10.3) L 03/26/19 06:50 Magnesium 1.9 mg/dL (1.9-2.7) 03/23/19 09:17 Total Bilirubin 0.30 mg/dL (0.2-1.0) 03/23/19 09:17 AST 11 U/L (13-39) L 03/23/19 09:17 ALT 13 U/L (7-52) 03/23/19 09:17 Alkaline Phosphatase 114 U/L (34-104) H 03/23/19 09:17 Total Creatine Kinase 30 U/L (10-223) 03/23/19 09:17 C-Reactive Protein 95.61 mg/L (<8.01) H 03/23/19 09:17 B-Natriuretic Peptide 229 pg/mL (<=100) H 03/23/19 09:17 Total Protein 6.4 g/dL (6.4-8.9) 03/23/19 09:17 Albumin 3.3 g/dL (3.2-5.2) 03/23/19 09:17 Globulin 3.1 g/dL (2-4) 03/23/19 09:17 Albumin/Globulin Ratio 1.1 (1-3) 03/23/19 09:17 Lipase 10 U/L (11.0-82.0) L 03/23/19 09:17 Urine Color Yellow 03/26/19 00:23 Urine Appearance Cloudy 03/26/19 00:23 Urine pH 5.0 (5-9) 03/26/19 00:23 Ur Specific [place] 1.016 (1.010-1.030) 03/26/19 00:23 Urine Protein Negative (Negative) 03/26/19 00:23 Urine Ketones Negative (Negative) 03/26/19 00:23 Urine Blood Negative (Negative) 03/26/19 00:23 Urine Nitrate Negative (Negative) 03/26/19 00:23 Urine Bilirubin Negative (Negative) 03/26/19 00:23 Urine Urobilinogen Negative (Negative) 03/26/19 00:23 Ur Leukocyte Esterase Negative (Negative) 03/26/19 00:23 Urine Glucose Negative (Negative) 03/26/19 00:23 Urine Ascorbic Acid * (Negative) A 03/23/19 09:58 Blood Type A Negative 03/25/19 21:40 Antibody Screen Negative 03/25/19 21:40 Crossmatch See Detail 03/25/19 21:40 Assessment: POD#1 s/p right colectomy, return to OR for post-op hemorrhage Hemodynamically stable-no further bleeding H/H noted Labs noted Plan: D/C cortés IVF Analgesia Transfer to SSSU IS, SCD's Hold off on subq heparin for now PPI Findings at second laparotomy discussed with patient, I also called his mother to give update but no answer on her cell phone this morning. Will try to attempt later this morning
--- NOTE | 2019-03-26 10:48 | OP ---
DATE OF OPERATION: 03/26/19 - ROOM #331 DATE OF : 59 SURGEON: Mark Heredia MD. PLATE SLITTER AND INSPECTOR: None. ANESTHESIOLOGIST: Dr. Ty. ANESTHESIA: General with local. PRE-OP DIAGNOSES: 1. Postoperative hypotension. 2. Anemia. 3. Abdominal distention. POST-OP DIAGNOSES: 1. Postoperative hypotension. 2. Hemoperitoneum, with large raw right retroperitoneal surface from previous dissection with no active bleed, nonbleeding liver serosal tear adjacent to the gallbladder. OPERATIVE PROCEDURE: Exploratory laparotomy, evacuation of intra-abdominal blood and clot IV FLUIDS: 1100 cc of crystalloid plus 1 unit of packed red blood cells. ESTIMATED BLOOD LOSS: Not able to be accurately recorded due to large amount of old blood and clot. SPECIMENS: None. DRAINS: None. WOUND CLASSIFICATION: I. FINDINGS: Large amount of blood and clot in all 4 quadrants of the abdomen. There was large raw right retroperitoneal surface from prior dissection. No active bleeding. There was a nonbleeding liver serosal tear adjacent to the gallbladder. BRIEF HISTORY: Mr. Favian Yu is a 63-year-old gentleman who was presented in the emergency room, was admitted to the surgical service over the weekend with almost 3 weeks of right lower quadrant abdominal discomfort. He had a CT scan which was performed, which showed appendiceal findings consistent most likely with acute on chronic appendicitis versus a possible mucinous neoplasm with a mass in the RLQ of the abdomen. He was on Coumadin and this has been held for several days. Earlier today, he was taken to the operating room by Dr. Carolina where he underwent a laparoscopic with conversion to open right hemicolectomy for a large inflammatory mass apparently due to acute appendicitis. This did not appear to be malignant. Postoperatively on the floor, 6 to 7 hours postoperatively, he developed hypotension, diaphoresis and abdominal distention. He required aggressive IV fluid resuscitation and his blood count was 4 grams lower than his initial admission. He responded to IV fluid resuscitation and was transferred to the ICU. However, 3 hours later, hemoglobin returned at 6.5 and he had become persistently hypotensive, but not tachycardic. His abdominal pain worsened and he became more distended. A decision was made to take him to the operating room for reexploration. Please see the preoperative note in the chart. DESCRIPTION OF PROCEDURE: Written informed consent was obtained, the abdomen was marked with indelible ink and the patient had already been on antibiotics. He was taken to the operating room and placed in the supine position. Sequential compression devices and a Castro catheter had already been inserted. General anesthesia was administered, then the abdomen was prepped and draped in usual sterile fashion. A time-out verification was completed. The previous skin omega were removed and the midline fascial suture was removed. On entering into the abdomen, there was a large amount of blood and clot in all 4 quadrants of the abdomen. This was evacuated and irrigated. All 4 quadrants of the abdomen were packed. The patient did become more hypotensive during the initial portion of the case, but with fluid resuscitation and another unit of blood was transfused and he became hemodynamically stable throughout the reminder of the case. Careful evaluation of all 4 quadrants was then performed. The left upper quadrant and the left lower quadrant as well as the pelvis showed no signs of previous dissection or bleeding. There was a significant amount of clot however above the spleen and left upper quadrant, the site of the previous gastric bypass surgery and this was carefully evaluated, but did not appear to be any source of hemorrhage in the omentum or splenic area. The pelvis was unremarkable. Along the right lateral retroperitoneum where the dissection had been performed earlier on the day for the right hemicolectomy, there was a large amount of raw surface area. The psoas muscle was then exposed as well as the raw surface area along the lateral anterior abdominal wall and raw peritoneal surfaces. This was nonbleeding and this area was packed. There was blood and clot evacuated from above the liver. The gallbladder appeared to be unremarkable. There was a small serosal tear that was nonbleeding on the liver surface adjacent to the gallbladder. This may have been the source of previous bleeding. The anastomosis appeared to be intact and the mesenteric defect had been closed with a running suture. There was no evidence of bleeding from the ileocolic vessel pedicle that had been ligated. This was all viable without evidence of abnormality. More superiorly in the colonic bed where the hepatic flexure had been mobilized was significant amount of raw surface area; however after this was packed for 5 to 10 minutes, there was no obvious source of bleeding noted. All 4 quadrants of the abdomen were thoroughly irrigated. All laparotomy pad counts, instrument counts were reported as normal. The midline incision was closed with interrupted #1 Vicryl suture. The skin was approximated with a stapling device and dry sterile dressings were applied. [id number]/[facility] #: [id number] JOHN
[2019-03-26] MEDS: HYDROmorphone INJ1* 1 MG/ML SYRINGE IV SLOW PU PRN ×3 (17:41→22:34)
[2019-03-26] MEDS: Pantoprazole IV* 40 MG IV SCH (20:33)
[2019-03-26] MEDS: Atenolol TAB* 50 MG PO SCH (20:33)
[2019-03-26] MEDS: QUEtiapine TAB* 100 MG PO SCH (22:09)
[2019-03-27] MEDS: Piperacillin/Tazobac ADVAN(*) 3.375 GM in NS 0.9% 100 ML* 100 ML IVPB SCH ×3 (01:26→18:28)
[2019-03-27] MEDS: HYDROmorphone INJ* 0.5 MG/0.5 ML SYRINGE IV SLOW PU PRN (01:31)
[2019-03-27] MEDS: HYDROmorphone INJ1* 1 MG/ML SYRINGE IV SLOW PU PRN ×9 (03:52→22:34)
[2019-03-27 06:50] LABS: ABS Lymphocytes 1.3 10^3/ul (1.0-4.8); ABS Monocytes 0.9 10^3/ul (0-0.8); ABS Neutrophils 11.6 10^3/ul (1.5-7.7); Hematocrit 24 % (42-52); Hemoglobin 8.1 g/dL (14.0-18.0); Lymphocyte % 9.4 %; Mean Corpuscular HGB Conc 34 g/dL (31-36); Mean Corpuscular Hemoglobin 32 pg (27-31); Mean Corpuscular Volume 93 fL (80-94); Mean Platelet Volume 7.6 fL (7.4-10.4); Platelet Count 267 10^3/uL (150-450); Red Blood Count 2.54 10^6 /uL (4.18-5.48); Red Cell Distribution Width 14 % (10-15); White Blood Count 13.8 10^3/uL (3.5-10.8)
[2019-03-27 07:11] LABS: BUN/Creatinine Ratio 31.6 (8-20); Calcium 7.9 mg/dL (8.6-10.3); EGFR African American 175.8 (>60); EGFR Non-African American 145.3 (>60); Potassium 4.2 mmol/L (3.5-5.0)
--- NOTE | 2019-03-27 07:27 | PN ---
Subjective Date of Service: 03/27/19 Family History: Unchanged from Admission Social History: Unchanged from Admission Past Medical History: Unchanged from Admission Objective Active Medications: Acetaminophen (Tylenol Tab*) 650 mg PO Q4H PRN PRN Reason: PAIN - MILD Atenolol (Tenormin Tab*) 50 mg PO BID@0900,2100 [facility] Last Admin: 03/26/19 20:33 Dose: 50 mg Bupropion HCl (Wellbutrin Sr Tab*) 200 mg PO BID [facility] Last Admin: 03/26/19 20:33 Dose: 200 mg Cetirizine HCl (Zyrtec*) 10 mg PO DAILY [facility] Last Admin: 03/26/19 07:54 Dose: 10 mg Divalproex Sodium (Depakote Er Tab(*)) 250 mg PO DAILY [facility] Last Admin: 03/26/19 07:55 Dose: 250 mg Hydromorphone HCl (Dilaudid Inj*) 0.5 mg IV SLOW PU Q2H PRN PRN Reason: PAIN - MODERATE Last Admin: 03/27/19 01:31 Dose: 0.5 mg Hydromorphone HCl (Dilaudid Inj1s*) 1 mg IV SLOW PU Q2H PRN PRN Reason: severe pain Last Admin: 03/27/19 07:22 Dose: 1 mg Piperacillin Sod/Tazobactam (Sod 3.375 gm/ Sodium Chloride) 100 mls @ 25 mls/ hr IVPB Q8H [facility] Last Admin: 03/27/19 01:26 Dose: 25 mls/hr Sodium Chloride (Ns 0.9% 1000 Ml) 1,000 mls @ 75 mls/hr IV PER RATE [facility] Last Admin: 03/26/19 19:07 Dose: 75 mls/hr Lamotrigine (Lamictal Tab(*)) 100 mg PO BID [facility] Last Admin: 03/26/19 20:33 Dose: 100 mg Naloxone HCl (Narcan*) 0.08 mg IV PUSH .Q2MIN PRN PRN Reason: OVERSEDATION Ondansetron HCl (Zofran Inj*) 4 mg IV Q6H PRN PRN Reason: NAUSEA/VOMITING Pantoprazole Sodium (Protonix Iv*) 40 mg IV Q24H [facility] Last Admin: 03/26/19 20:33 Dose: 40 mg Quetiapine Fumarate (Seroquel Tab*) 150 mg PO BEDTIME [facility] Last Admin: 03/26/19 22:09 Dose: 150 mg Valacyclovir HCl (Valtrex 500 Mg (*)) 500 mg PO DAILY [facility] Last Admin: 03/26/19 07:55 Dose: 500 mg Vital Signs - 8 hr 03/26/19 03/27/19 03/27/19 23:31 01:31 02:24 Temperature Pulse Rate Respiratory 16 18 16 Rate Blood Pressure (mmHg) O2 Sat by Pulse Oximetry 03/27/19 03/27/19 03/27/19 03:40 03:52 04:57 Temperature 98.0 F Pulse Rate 91 Respiratory 16 16 16 Rate Blood Pressure 114/67 (mmHg) O2 Sat by Pulse 99 Oximetry 03/27/19 03/27/19 07:21 07:22 Temperature 98.0 F Pulse Rate 78 Respiratory 16 18 Rate Blood Pressure 109/63 (mmHg) O2 Sat by Pulse 98 Oximetry Oxygen Devices in Use Now: None Result Diagrams: 03/27/19 05:39 03/27/19 05:39 Microbiology and Other Data: Microbiology 03/25/19 23:35 Nasal Screen MRSA (PCR) - Final Nasal Mrsa Not Detected 03/23/19 09:00 Stool Occult Blood (IZABEL) - Final Stool Assess/Plan/Problems-Billing Assessment: Mr Yu is a 63yo M with PMH of Afib, bipolar, COPD, who presented to ED with c/o RLQ pain, found to have appendicitis. S/p open lap, right colectomy, taken back to OR due to hemoperitoneum. - Patient Problems (1) S/P right colectomy Comment: - Complicated by hemoperitoneum, requiring return to OR. - Continue Zosyn. - Management as per Surgery. (2) Acute blood loss anemia Comment: - S/p 2 PRBC - monitor H/H. (3) Atrial fibrillation Comment: - Rate is controlled. - Continue Atenolol; diltiazem on hold for now. - Will resume anticoagulation when okay with Surgery. (4) Bipolar disorder Comment: - Continue Bupropion, Divalproex, Lamotrigine, and Quetiapine. (5) DVT prophylaxis Comment: - SCDs for now. Start heparin when okay with Surgery. (6) Full code status Status and Disposition: Hospitalist service will continue to follow.
[2019-03-27] MEDS: Ondansetron INJ* 2 MG/ML VIAL IV PRN (07:28)
[2019-03-27] MEDS: NS 0.9% 1000 ML** 1,000 ML IV SCH ×3 (07:28→18:30)
[2019-03-27] MEDS: Atenolol TAB* 50 MG PO SCH ×2 (09:48→22:33)
[2019-03-27] MEDS: buPROPion SR TAB.SR* 200 MG PO SCH ×2 (09:54→20:46)
[2019-03-27] MEDS: Cetirizine* 10 MG TAB PO SCH (09:54)
[2019-03-27] MEDS: Divalproex ER TAB(*) 250 MG PO SCH (09:55)
[2019-03-27] MEDS: lamoTRIgine TAB(*) 100 MG PO SCH ×2 (09:55→20:48)
[2019-03-27] MEDS: ValACYclovir (*) 500 MG TAB PO SCH (09:55)
--- NOTE | 2019-03-27 11:30 | PN ---
Progress Note - Progress Note Date of Service: 03/27/19 Note: S: POD #1 and 2. On Zosyn. c/o pain, but better relief from Dilaudid. No sig nausea. He would like to drink. Passing flatus; no BM. Ambulating. Using IS. O: Vital Signs - 8 hr 03/27/19 03/27/19 03/27/19 03:40 03:52 04:57 Temperature 98.0 F Pulse Rate 91 Respiratory 16 16 16 Rate Blood Pressure 114/67 (mmHg) O2 Sat by Pulse 99 Oximetry 03/27/19 03/27/19 03/27/19 07:21 07:22 09:55 Temperature 98.0 F Pulse Rate 78 Respiratory 16 18 18 Rate Blood Pressure 109/63 (mmHg) O2 Sat by Pulse 98 Oximetry 03/27/19 10:55 Temperature Pulse Rate Respiratory 18 Rate Blood Pressure (mmHg) O2 Sat by Pulse Oximetry Intake and Output Last 24 Hours 03/25/19 03/26/19 03/27/19 03/28/19 06:59 06:59 06:59 06:59 Intake Total 1865 3840 343 920 Output Total 1525 1100 1250 325 Balance 340 2740 -907 595 Weight 151 lb 12.718 oz Intake: IV Fluids 3840 143 920 ABX - ZOSYN 68 LR 2600 NS (0.9%) 1240 75 920 IVPB 455 200 ABX - ZOSYN 455 200 Oral 1410 0 0 Output: Urine 4218 681 0799 325 Castro 650 150 Estimated Blood Loss 50 Other: Estimated Void Medium # Bowel Movements 0 # Voids 6 Gen: Chronically cachectic appearing male, in NAD Heart: irreg, c/w afib Lungs: clear Abd: midline incision clean; no sig drainage; minimal distension. +BS ( hypoactive). Soft-> somewhat firm/guarding w/ moderate tenderness to palp Labs: Laboratory Tests 03/27/19 05:39 WBC 13.8 H Hgb 8.1 L Hct 24 L P3 ok Path pend A: s/p laparoscopy -> laparotomy w/ Right colectomy; return to OR for bleeding; now stable; improved pain control on Dilaudid P: try clear liqs; cont ambulation and IS use
[2019-03-27] MEDS ORDERED: Ketorolac INJ* 30 MG/ML 1 ML VIAL ONE (12:19)
[2019-03-27] MEDS ORDERED: Ketorolac INJ* 30 MG/ML 1 ML VIAL IV SCH (13:02)
[2019-03-27] MEDS ORDERED: Ketorolac INJ* 30 MG/ML 1 ML VIAL IV PRN (13:10)
--- NOTE | 2019-03-27 17:02 | PN ---
Hospitalist Progress Note Date of Service: 03/27/19 HOSPITALIST ADDENDUM Mr Yu is a 63yo M with PMH of Afib, bipolar, COPD, who presented to ED with c/o RLQ pain, found to have appendicitis. S/p open lap, right colectomy, taken back to OR due to hemoperitoneum, received 2 PRBC for acute blood loss anemia. Doing well post op. Path was negative for malignancy. Afib rate is controlled. Should resume anticoagulation when okay with Surgery. Hospitalist service will sign off. Please don't hesitate to contact us with any questions or concerns.
[2019-03-27] MEDS: Pantoprazole IV* 40 MG IV SCH (20:45)
[2019-03-27] MEDS: QUEtiapine TAB* 100 MG PO SCH (22:33)
[2019-03-28] MEDS: Piperacillin/Tazobac ADVAN(*) 3.375 GM in NS 0.9% 100 ML* 100 ML IVPB SCH ×3 (01:33→18:30)
[2019-03-28 05:40] LABS: ABS Eosinophils 0.2 10^3/ul (0-0.6); ABS Lymphocytes 1.6 10^3/ul (1.0-4.8); ABS Monocytes 0.7 10^3/ul (0-0.8); ABS Neutrophils 5.8 10^3/ul (1.5-7.7); Eosinophil % 2.7 %; Hematocrit 22 % (42-52); Hemoglobin 7.3 g/dL (14.0-18.0); Lymphocyte % 19.1 %; Mean Corpuscular HGB Conc 34 g/dL (31-36); Mean Corpuscular Hemoglobin 32 pg (27-31); Mean Corpuscular Volume 95 fL (80-94); Mean Platelet Volume 7.2 fL (7.4-10.4); Nucleated Red Blood Cells % 0.1; Platelet Count 206 10^3/uL (150-450); Red Blood Count 2.27 10^6 /uL (4.18-5.48); Red Cell Distribution Width 14 % (10-15); White Blood Count 8.4 10^3/uL (3.5-10.8)
[2019-03-28] MEDS: HYDROmorphone INJ1* 1 MG/ML SYRINGE IV SLOW PU PRN ×8 (07:16→23:01)
[2019-03-28] MEDS: NS 0.9% 1000 ML** 1,000 ML IV SCH ×2 (07:19→21:05)
--- NOTE | 2019-03-28 08:21 | PN ---
Progress Note - Progress Note Date of Service: 03/28/19 SOAP: Subjective: [] passing flatus Objective: [] Temp Pulse Resp BP Pulse Ox 97.9 F 76 18 115/66 100 03/28/19 07:22 03/28/19 07:22 03/28/19 07:25 03/28/19 07:22 03/28/19 07:22 Laboratory Last Values WBC 8.4 10^3/uL (3.5-10.8) 03/28/19 04:33 RBC 2.27 10^6 /uL (4.18-5.48) L 03/28/19 04:33 Hgb 7.3 g/dL (14.0-18.0) L 03/28/19 04:33 Hct 22 % (42-52) L 03/28/19 04:33 MCV 95 fL (80-94) H 03/28/19 04:33 MCH 32 pg (27-31) H 03/28/19 04:33 MCHC 34 g/dL (31-36) 03/28/19 04:33 RDW 14 % (10-15) 03/28/19 04:33 Plt Count 206 10^3/uL (150-450) 03/28/19 04:33 MPV 7.2 fL (7.4-10.4) L 03/28/19 04:33 Neut % (Auto) 69.1 % 03/28/19 04:33 Lymph % (Auto) 19.1 % 03/28/19 04:33 [place] % (Auto) 8.6 % 03/28/19 04:33 Eos % (Auto) 2.7 % 03/28/19 04:33 Baso % (Auto) 0.5 % 03/28/19 04:33 Absolute Neuts (auto) 5.8 10^3/ul (1.5-7.7) 03/28/19 04:33 Absolute Lymphs (auto) 1.6 10^3/ul (1.0-4.8) 03/28/19 04:33 Absolute Monos (auto) 0.7 10^3/ul (0-0.8) 03/28/19 04:33 Absolute Eos (auto) 0.2 10^3/ul (0-0.6) 03/28/19 04:33 Absolute Basos (auto) 0.0 10^3/ul (0-0.2) 03/28/19 04:33 Absolute Nucleated RBC 0.0 10^3/ul 03/28/19 04:33 Immature Gran % 31.0 % (0-9) H 03/25/19 21:40 Neutrophils % 60.0 % 03/25/19 21:40 Band Neutrophils % 31.0 % (0-8) H 03/25/19 21:40 Lymphocytes % 5.0 % 03/25/19 21:40 Monocytes % 4.0 % 03/25/19 21:40 Nucleated RBC % 0.1 03/28/19 04:33 Normal RBC Morphology Normal (Normal) 03/25/19 21:40 INR (Anticoag Therapy) 1.33 (0.82-1.09) H 03/26/19 06:50 APTT 42.7 seconds (26.0-38.0) H 03/23/19 09:17 Sodium 140 mmol/L (135-145) 03/27/19 05:39 Potassium 4.2 mmol/L (3.5-5.0) 03/27/19 05:39 Chloride 109 mmol/L (101-111) 03/27/19 05:39 Carbon Dioxide 27 mmol/L (22-32) 03/27/19 05:39 Anion Gap 4 mmol/L (2-11) 03/27/19 05:39 BUN 18 mg/dL (6-24) 03/27/19 05:39 Creatinine 0.57 mg/dL (0.67-1.17) L 03/27/19 05:39 Est GFR ( Amer) 175.8 (>60) 03/27/19 05:39 Est GFR (Non-Af Amer) 145.3 (>60) 03/27/19 05:39 BUN/Creatinine Ratio 31.6 (8-20) H 03/27/19 05:39 Glucose 134 mg/dL (70-100) H 03/27/19 05:39 Lactic Acid 1.7 mmol/L (0.5-2.0) 03/25/19 23:35 Calcium 7.9 mg/dL (8.6-10.3) L 03/27/19 05:39 Magnesium 1.9 mg/dL (1.9-2.7) 03/23/19 09:17 Total Bilirubin 0.30 mg/dL (0.2-1.0) 03/23/19 09:17 AST 11 U/L (13-39) L 03/23/19 09:17 ALT 13 U/L (7-52) 03/23/19 09:17 Alkaline Phosphatase 114 U/L (34-104) H 03/23/19 09:17 Total Creatine Kinase 30 U/L (10-223) 03/23/19 09:17 C-Reactive Protein 95.61 mg/L (<8.01) H 03/23/19 09:17 B-Natriuretic Peptide 229 pg/mL (<=100) H 03/23/19 09:17 Total Protein 6.4 g/dL (6.4-8.9) 03/23/19 09:17 Albumin 3.3 g/dL (3.2-5.2) 03/23/19 09:17 Globulin 3.1 g/dL (2-4) 03/23/19 09:17 Albumin/Globulin Ratio 1.1 (1-3) 03/23/19 09:17 Lipase 10 U/L (11.0-82.0) L 03/23/19 09:17 Urine Color Yellow 03/26/19 00:23 Urine Appearance Cloudy 03/26/19 00:23 Urine pH 5.0 (5-9) 03/26/19 00:23 Ur Specific [place] 1.016 (1.010-1.030) 03/26/19 00:23 Urine Protein Negative (Negative) 03/26/19 00:23 Urine Ketones Negative (Negative) 03/26/19 00:23 Urine Blood Negative (Negative) 03/26/19 00:23 Urine Nitrate Negative (Negative) 03/26/19 00:23 Urine Bilirubin Negative (Negative) 03/26/19 00:23 Urine Urobilinogen Negative (Negative) 03/26/19 00:23 Ur Leukocyte Esterase Negative (Negative) 03/26/19 00:23 Urine Glucose Negative (Negative) 03/26/19 00:23 Urine Ascorbic Acid * (Negative) A 03/23/19 09:58 Blood Type A Negative 03/25/19 21:40 Antibody Screen Negative 03/25/19 21:40 Crossmatch See Detail 03/25/19 21:40 abdomen soft, incision intact Assessment: []stable, adv diet as yun Plan: []
[2019-03-28] MEDS: Atenolol TAB* 50 MG PO SCH ×2 (09:23→21:08)
[2019-03-28] MEDS: ValACYclovir (*) 500 MG TAB PO SCH (09:23)
[2019-03-28] MEDS: Divalproex ER TAB(*) 250 MG PO SCH (09:23)
[2019-03-28] MEDS: lamoTRIgine TAB(*) 100 MG PO SCH ×2 (09:23→21:08)
[2019-03-28] MEDS: Cetirizine* 10 MG TAB PO SCH (09:23)
[2019-03-28] MEDS: buPROPion SR TAB.SR* 200 MG PO SCH ×2 (09:23→21:08)
[2019-03-28 09:31] LABS: INR 1.33 (0.82-1.09)
[2019-03-28] MEDS: Warfarin TAB(*) 10 MG PO SCH (16:30)
[2019-03-28] MEDS: Pantoprazole IV* 40 MG IV SCH (21:08)
[2019-03-28] MEDS: QUEtiapine TAB* 100 MG PO SCH (21:09)
[2019-03-28] MEDS: Ondansetron INJ* 2 MG/ML VIAL IV PRN (23:06)
[2019-03-29] MEDS: Piperacillin/Tazobac ADVAN(*) 3.375 GM in NS 0.9% 100 ML* 100 ML IVPB SCH ×4 (01:25→17:32)
[2019-03-29] MEDS: HYDROmorphone INJ1* 1 MG/ML SYRINGE IV SLOW PU PRN ×4 (01:26→08:12)
[2019-03-29 05:36] LABS: ABS Eosinophils 0.3 10^3/ul (0-0.6); ABS Lymphocytes 1.2 10^3/ul (1.0-4.8); ABS Monocytes 0.6 10^3/ul (0-0.8); ABS Neutrophils 5.9 10^3/ul (1.5-7.7); Eosinophil % 3.9 %; Hematocrit 21 % (42-52); Hemoglobin 7.3 g/dL (14.0-18.0); Lymphocyte % 14.5 %; Mean Corpuscular HGB Conc 34 g/dL (31-36); Mean Corpuscular Hemoglobin 32 pg (27-31); Mean Corpuscular Volume 94 fL (80-94); Platelet Count 205 10^3/uL (150-450); Red Blood Count 2.27 10^6 /uL (4.18-5.48); Red Cell Distribution Width 13 % (10-15); White Blood Count 8.1 10^3/uL (3.5-10.8)
[2019-03-29] MEDS: Ondansetron INJ* 2 MG/ML VIAL IV PRN ×3 (05:37→17:39)
[2019-03-29] MEDS: Cetirizine* 10 MG TAB PO SCH (08:11)
[2019-03-29] MEDS: ValACYclovir (*) 500 MG TAB PO SCH (08:11)
[2019-03-29] MEDS: buPROPion SR TAB.SR* 200 MG PO SCH ×2 (08:11→22:02)
[2019-03-29] MEDS: Divalproex ER TAB(*) 250 MG PO SCH (08:12)
[2019-03-29] MEDS: lamoTRIgine TAB(*) 100 MG PO SCH ×2 (08:12→21:38)
[2019-03-29] MEDS: Atenolol TAB* 50 MG PO SCH ×2 (08:12→21:38)
[2019-03-29] MEDS: oxyCODONE TAB* 5 MG TAB PO PRN ×4 (09:47→23:49)
--- NOTE | 2019-03-29 09:59 | PN ---
Progress Note - Progress Note Date of Service: 03/29/19 SOAP: Subjective:passing flatus,no stool yet;tolerating small amounts bariatric diet, mild nausea;reports pain8/10 [] Objective: Vital Signs Temp 98.9 F 03/29/19 07:22 Pulse 77 03/29/19 07:22 Resp 18 03/29/19 08:12 BP 122/79 03/29/19 07:22 Pulse Ox 98 03/29/19 07:22 Intake & Output 03/28/19 03/29/19 03/29/19 18:59 06:59 18:59 Intake Total 1581 1990 Output Total 300 2140 0 Balance 1281 -149 0 Intake: IV Fluids 961 991 NS (0.9%) 961 991 IVPB 200 300 ABX - ZOSYN 200 300 Oral 420 700 Output: Urine 300 2140 0 lungs:clear bilat;heart:irreg c/w afib;abd:+bs;soft,nondistended,minmal tenderness,midline and left lat incision intact with moega,clean and dry,no infection;dsd replaced;ext:nontender calves,no edema Laboratory Results - last 24 hr 03/29/19 05:18 WBC 8.1 RBC 2.27 L Hgb 7.3 L Hct 21 L MCV 94 MCH 32 H MCHC 34 RDW 13 Plt Count 205 MPV 7.0 L Neut % (Auto) 73.5 Lymph % (Auto) 14.5 [place] % (Auto) 7.7 Eos % (Auto) 3.9 Baso % (Auto) 0.4 Absolute Neuts (auto) 5.9 Absolute Lymphs (auto) 1.2 Absolute Monos (auto) 0.6 Absolute Eos (auto) 0.3 Absolute Basos (auto) 0.0 Absolute Nucleated RBC 0.0 Nucleated RBC % 0.0 [] Assessment:POD#4 s/p open R colectomy for chronic appendicitis with inflammatory mass with return to OR 03/26 for bleeding still requesting frequent Dilaudid IV,discussed with pt weaning off Dilaudid and trying po analgesics discussed nutrition consult for bariatric diet choices(hx gastric bypass) he is from [place] and is here to visit his mother who lives at [facility] [] Plan:Warfarin resumed 03/28/19(hx afib);check INR/PT daily po analgesic ordered and advised decreased use of Dilaudid continue IV antibiotics Nutrition consult per pt request turnaround planner will meet with pt today possible discharge on Monday04/01/19 []
[2019-03-29] MEDS: HYDROmorphone INJ* 0.5 MG/0.5 ML SYRINGE IV SLOW PU PRN ×4 (11:08→21:40)
--- NOTE | 2019-03-29 13:08 | PN ---
Progress Note - Progress Note Date of Service: 03/29/19 Note: addendum 03/29/[address] Carolina by phone;he recommends discontinuing Zosyn on 03/30/19 and that pt will not require po antibiotics on discharge;Dr Carolina agrees with current analgesics for pain management and does not recommend higher doses;Dr Carolina updated.JOSEE Lira
[2019-03-29] MEDS: Warfarin TAB(*) 10 MG PO SCH (17:32)
[2019-03-29] MEDS: Pantoprazole IV* 40 MG IV SCH (21:43)
[2019-03-29] MEDS: QUEtiapine TAB* 100 MG PO SCH (22:02)
[2019-03-30] MEDS: Ondansetron INJ* 2 MG/ML VIAL IV PRN ×4 (00:03→21:36)
[2019-03-30] MEDS: HYDROmorphone INJ* 0.5 MG/0.5 ML SYRINGE IV SLOW PU PRN ×5 (01:47→23:56)
[2019-03-30] MEDS: Piperacillin/Tazobac ADVAN(*) 3.375 GM in NS 0.9% 100 ML* 100 ML IVPB SCH ×2 (02:01→10:17)
[2019-03-30] MEDS: oxyCODONE TAB* 5 MG TAB PO PRN ×5 (04:03→21:26)
[2019-03-30 07:04] LABS: INR 2.17 (0.82-1.09)
[2019-03-30] MEDS: Divalproex ER TAB(*) 250 MG PO SCH (08:36)
[2019-03-30] MEDS: Cetirizine* 10 MG TAB PO SCH (08:36)
[2019-03-30] MEDS: buPROPion SR TAB.SR* 200 MG PO SCH ×2 (08:36→21:28)
[2019-03-30] MEDS: ValACYclovir (*) 500 MG TAB PO SCH (08:37)
[2019-03-30] MEDS: lamoTRIgine TAB(*) 100 MG PO SCH ×2 (08:37→21:27)
[2019-03-30] MEDS: Atenolol TAB* 50 MG PO SCH ×2 (08:37→21:28)
--- NOTE | 2019-03-30 13:18 | PN ---
Progress Note - Progress Note Date of Service: 03/30/19 Note: Surgery Progress Note S: Patient is feeling well today. Pain is 5/10. He has no nausea. Is tolerating bariatric diet. He is ambulating, passing flatus. No BM yet. Objective: Vital Signs: Temp Pulse Resp BP Pulse Ox 98.9 F 70 16 137/70 100 03/30/19 11:22 03/30/19 11:22 03/30/19 11:22 03/30/19 11:22 03/30/19 11:22 Laboratory Results - last 24 hr 03/30/19 06:34 INR (Anticoag Therapy) 2.17 H Intake & Output 03/29/19 03/30/19 03/30/19 22:59 06:59 14:59 Intake Total 100 Output Total 600 1000 Balance -500 -1000 Intake: Oral 100 Output: Urine 600 1000 Abx- none Physical exam: Abdomen- soft, non tender, non distended, incision c/d/i, omega in place O: 63 M POD 5 from open RHC with take back for intraabdominal bleeding, doing well. - Continue bariatric soft diet - DC Zosyn today - Continue checking INR, on coumadin 10mg daily (home dose) - Discussed with patient about reducing 0.5MG IV dilauidid to Q6H PRN for severe pain today, from Q4H. Plan to DC all IV narcotics tomorrow in preparation for DC Monday. - Continue OOB and ambulating
[2019-03-30] MEDS: NS 0.9% 1000 ML** 1,000 ML IV SCH (14:10)
[2019-03-30] MEDS: Warfarin TAB(*) 10 MG PO SCH (16:55)
[2019-03-30] MEDS ORDERED: LORazepam TAB(*) 0.5 MG ONE (17:34)
[2019-03-30] MEDS: Pantoprazole IV* 40 MG IV SCH (21:26)
[2019-03-30] MEDS ORDERED: LORazepam TAB(*) 0.5 MG PO ONE (23:37)
[2019-03-30] MEDS: QUEtiapine TAB* 100 MG PO SCH (23:55)
[2019-03-31] MEDS: oxyCODONE TAB* 5 MG TAB PO PRN ×6 (05:13→20:00)
[2019-03-31] MEDS: Ondansetron INJ* 2 MG/ML VIAL IV PRN ×3 (05:13→19:44)
[2019-03-31] MEDS: Atenolol TAB* 50 MG PO SCH ×2 (07:25→22:43)
[2019-03-31] MEDS: buPROPion SR TAB.SR* 200 MG PO SCH ×2 (09:15→22:43)
[2019-03-31] MEDS: lamoTRIgine TAB(*) 100 MG PO SCH ×2 (09:15→22:43)
[2019-03-31] MEDS: Cetirizine* 10 MG TAB PO SCH (09:16)
[2019-03-31] MEDS: ValACYclovir (*) 500 MG TAB PO SCH (09:16)
[2019-03-31] MEDS: Divalproex ER TAB(*) 250 MG PO SCH (09:16)
[2019-03-31] MEDS: NS 0.9% 1000 ML** 1,000 ML IV SCH (10:27)
[2019-03-31] MEDS ORDERED: LORazepam TAB(*) 0.5 MG PO PRN (10:57)
[2019-03-31 13:26] LABS: INR 4.25 (0.82-1.09)
--- NOTE | 2019-03-31 14:41 | PN ---
Progress Note - Progress Note Date of Service: 03/31/19 Note: Surgery Progress Note S: Patient says that he continues to have 5/10 pain. He said he had withdrawal symptoms last night and 0.5mg PO ativan helped him with this. He is upset about being weaned off of narcotics. He has been tolerating a diet, ambulating. Has flatus, no BM. O: Vital Signs: Temp Pulse Resp BP Pulse Ox 97.8 F 109 18 130/73 100 03/31/19 11:30 03/31/19 11:30 03/31/19 13:33 03/31/19 11:30 03/31/19 11:30 Laboratory Last Values WBC 8.1 10^3/uL (3.5-10.8) 03/29/19 05:18 RBC 2.27 10^6 /uL (4.18-5.48) L 03/29/19 05:18 Hgb 7.3 g/dL (14.0-18.0) L 03/29/19 05:18 Hct 21 % (42-52) L 03/29/19 05:18 MCV 94 fL (80-94) 03/29/19 05:18 MCH 32 pg (27-31) H 03/29/19 05:18 MCHC 34 g/dL (31-36) 03/29/19 05:18 RDW 13 % (10-15) 03/29/19 05:18 Plt Count 205 10^3/uL (150-450) 03/29/19 05:18 MPV 7.0 fL (7.4-10.4) L 03/29/19 05:18 Neut % (Auto) 73.5 % 03/29/19 05:18 Lymph % (Auto) 14.5 % 03/29/19 05:18 [place] % (Auto) 7.7 % 03/29/19 05:18 Eos % (Auto) 3.9 % 03/29/19 05:18 Baso % (Auto) 0.4 % 03/29/19 05:18 Absolute Neuts (auto) 5.9 10^3/ul (1.5-7.7) 03/29/19 05:18 Absolute Lymphs (auto) 1.2 10^3/ul (1.0-4.8) 03/29/19 05:18 Absolute Monos (auto) 0.6 10^3/ul (0-0.8) 03/29/19 05:18 Absolute Eos (auto) 0.3 10^3/ul (0-0.6) 03/29/19 05:18 Absolute Basos (auto) 0.0 10^3/ul (0-0.2) 03/29/19 05:18 Absolute Nucleated RBC 0.0 10^3/ul 03/29/19 05:18 Immature Gran % 31.0 % (0-9) H 03/25/19 21:40 Neutrophils % 60.0 % 03/25/19 21:40 Band Neutrophils % 31.0 % (0-8) H 03/25/19 21:40 Lymphocytes % 5.0 % 03/25/19 21:40 Monocytes % 4.0 % 03/25/19 21:40 Nucleated RBC % 0.0 03/29/19 05:18 Normal RBC Morphology Normal (Normal) 03/25/19 21:40 INR (Anticoag Therapy) 4.25 (0.82-1.09) H 03/31/19 13:12 APTT 42.7 seconds (26.0-38.0) H 03/23/19 09:17 Sodium 140 mmol/L (135-145) 03/27/19 05:39 Potassium 4.2 mmol/L (3.5-5.0) 03/27/19 05:39 Chloride 109 mmol/L (101-111) 03/27/19 05:39 Carbon Dioxide 27 mmol/L (22-32) 03/27/19 05:39 Anion Gap 4 mmol/L (2-11) 03/27/19 05:39 BUN 18 mg/dL (6-24) 03/27/19 05:39 Creatinine 0.57 mg/dL (0.67-1.17) L 03/27/19 05:39 Est GFR ( Amer) 175.8 (>60) 03/27/19 05:39 Est GFR (Non-Af Amer) 145.3 (>60) 03/27/19 05:39 BUN/Creatinine Ratio 31.6 (8-20) H 03/27/19 05:39 Glucose 134 mg/dL (70-100) H 03/27/19 05:39 Lactic Acid 1.7 mmol/L (0.5-2.0) 03/25/19 23:35 Calcium 7.9 mg/dL (8.6-10.3) L 03/27/19 05:39 Magnesium 1.9 mg/dL (1.9-2.7) 03/23/19 09:17 Total Bilirubin 0.30 mg/dL (0.2-1.0) 03/23/19 09:17 AST 11 U/L (13-39) L 03/23/19 09:17 ALT 13 U/L (7-52) 03/23/19 09:17 Alkaline Phosphatase 114 U/L (34-104) H 03/23/19 09:17 Total Creatine Kinase 30 U/L (10-223) 03/23/19 09:17 C-Reactive Protein 95.61 mg/L (<8.01) H 03/23/19 09:17 B-Natriuretic Peptide 229 pg/mL (<=100) H 03/23/19 09:17 Total Protein 6.4 g/dL (6.4-8.9) 03/23/19 09:17 Albumin 3.3 g/dL (3.2-5.2) 03/23/19 09:17 Globulin 3.1 g/dL (2-4) 03/23/19 09:17 Albumin/Globulin Ratio 1.1 (1-3) 03/23/19 09:17 Lipase 10 U/L (11.0-82.0) L 03/23/19 09:17 Urine Color Yellow 03/26/19 00:23 Urine Appearance Cloudy 03/26/19 00:23 Urine pH 5.0 (5-9) 03/26/19 00:23 Ur Specific [place] 1.016 (1.010-1.030) 03/26/19 00:23 Urine Protein Negative (Negative) 03/26/19 00:23 Urine Ketones Negative (Negative) 03/26/19 00:23 Urine Blood Negative (Negative) 03/26/19 00:23 Urine Nitrate Negative (Negative) 03/26/19 00:23 Urine Bilirubin Negative (Negative) 03/26/19 00:23 Urine Urobilinogen Negative (Negative) 03/26/19 00:23 Ur Leukocyte Esterase Negative (Negative) 03/26/19 00:23 Urine Glucose Negative (Negative) 03/26/19 00:23 Urine Ascorbic Acid * (Negative) A 03/23/19 09:58 Blood Type A Negative 03/25/19 21:40 Antibody Screen Negative 03/25/19 21:40 Crossmatch See Detail 03/25/19 21:40 Laboratory Results - last 24 hr 03/31/19 13:12 INR (Anticoag Therapy) 4.25 H Intake & Output 03/30/19 03/31/19 03/31/19 22:59 06:59 14:59 Intake Total 120 1461 Output Total 600 1600 900 Balance -480 -1600 561 Intake: IV Fluids 1354 NS (0.9%) 1354 IVPB 107 ABX - ZOSYN 107 Oral 120 Output: Urine 600 1600 900 Physical exam: Abdomen- soft, non distended, midline incision c/d/i, no drainage, minimal erythema A/P: 63 M POD 6 from open right hemicolectomy for chronic appendicitis, with takeback for bleeding who is doing well except with difficulty weaning off narcotics. - Patient has history of suboxone use (per patient) and has exhibited concerning drug seeking behavior. Had long discussion with patient about narcotic requirement. He appears very comfortable but insists he is suffering and in 5/10 pain. He agrees to have IV dilaudid DC'ed. He still has oxycodone 5mg PO Q4H but says this is not enough. We agreed he could have an additional oxycodone 5mg PO as needed for severe breakthrough pain, such as getting out of bed. I discussed this with the patient's nurse and wrote instructions for this PRN order that it should only be given for severe breakthrough pain. I have continued this breakthrough medication for only 24 hours. Tomorrow, patient should be re-assessed for its necessity. - Ativan 0.5mg PO PRN once this evening as needed if patient is in extreme distress, discussed with patient's nurse. - Continue OOB and ambulate - Continue bariatric soft diet - DC IV fluids - Medicine re-consult-- INR supratherapeutic today, will defer to them for holding coumadin today and when it should be restarted. Appreciate their assistance.
--- NOTE | 2019-03-31 17:45 | PN ---
Subjective Date of Service: 03/31/19 Interval History: Pt examined today at the bedside. He states that he is still having lower abd pain. He denies chills. Denies lightheadedness. Denies shortness of breathe. Denies chest pain. Denies lightheadedness with postion change. ROS- denies fever, denies chills, denies chest pain, denies shortness of breathe , denies loc, denies nausea, denies vomiting, admits to abdominal pain, review of 11 systems completed all others negative, Family History: Unchanged from Admission Social History: Unchanged from Admission Past Medical History: Unchanged from Admission Objective Active Medications: Acetaminophen (Tylenol Tab*) 650 mg PO Q4H PRN PRN Reason: PAIN - MILD Atenolol (Tenormin Tab*) 50 mg PO BID@0900,2100 [facility] Last Admin: 03/31/19 07:25 Dose: Not Given Bupropion HCl (Wellbutrin Sr Tab*) 200 mg PO BID [facility] Last Admin: 03/31/19 09:15 Dose: 200 mg Cetirizine HCl (Zyrtec*) 10 mg PO DAILY [facility] Last Admin: 03/31/19 09:16 Dose: 10 mg Divalproex Sodium (Depakote Er Tab(*)) 250 mg PO DAILY [facility] Last Admin: 03/31/19 09:16 Dose: 250 mg Lamotrigine (Lamictal Tab(*)) 100 mg PO BID [facility] Last Admin: 03/31/19 09:15 Dose: 100 mg Lorazepam (Ativan Tab(*)) 0.5 mg PO ONCE PRN PRN Reason: ANXIETY Naloxone HCl (Narcan*) 0.08 mg IV PUSH .Q2MIN PRN PRN Reason: OVERSEDATION Ondansetron HCl (Zofran Inj*) 4 mg IV Q6H PRN PRN Reason: NAUSEA/VOMITING Last Admin: 03/31/19 12:21 Dose: 4 mg Oxycodone HCl (Roxycodone Tab*) 5 mg PO Q4H PRN PRN Reason: PAIN - MODERATE Last Admin: 03/31/19 17:37 Dose: 5 mg Oxycodone HCl (Roxycodone Tab*) 5 mg PO Q2H PRN PRN Reason: PAIN - SEVERE Stop: 04/01/19 08:00 Last Admin: 03/31/19 11:52 Dose: 5 mg Pantoprazole Sodium (Protonix Iv*) 40 mg IV Q24H [facility] Last Admin: 03/30/19 21:26 Dose: 40 mg Quetiapine Fumarate (Seroquel Tab*) 150 mg PO BEDTIME [facility] Last Admin: 03/30/19 23:55 Dose: 150 mg Valacyclovir HCl (Valtrex 500 Mg (*)) 500 mg PO DAILY [facility] Last Admin: 03/31/19 09:16 Dose: 500 mg Vital Signs - 8 hr 03/31/19 03/31/19 03/31/19 11:30 11:52 13:23 Temperature 97.8 F Pulse Rate 109 Respiratory 18 16 18 Rate Blood Pressure 130/73 (mmHg) O2 Sat by Pulse 100 Oximetry 03/31/19 03/31/19 03/31/19 13:24 13:33 15:51 Temperature Pulse Rate Respiratory 16 18 18 Rate Blood Pressure (mmHg) O2 Sat by Pulse Oximetry 03/31/19 03/31/19 16:02 17:37 Temperature 98.3 F Pulse Rate 74 Respiratory 18 18 Rate Blood Pressure 112/70 (mmHg) O2 Sat by Pulse 99 Oximetry Oxygen Devices in Use Now: None Appearance: 63 y/o male patient sitting in bed, NAD well developed, Eyes: No Scleral Icterus, PERRLA Ears/Nose/Mouth/Throat: NL Teeth, Lips, Gums Neck: NL Appearance and Movements; NL JVP Respiratory: Symmetrical Chest Expansion and Respiratory Effort Cardiovascular: NL Sounds; No Murmurs; No JVD Abdominal: - - midline incision open to air, CDI, tenderness noted at the incision site, bowel sounds present Extremities: No Edema Skin: - - midline abdominal incision noted, Neurological: Alert and Oriented x 3 Lines/Tubes/Other Access: Clean, Dry and Intact Peripheral IV - Nutrition: Malnutrition Diagnosis/Plan Malnutrition Assessment by Registered Dietitian: Malnutrition Assessment Clinical Characteristics Acute,Moderate Malnutrition Assessment: - po intake <75% EEE x > 7 days Criteria - mild temporal and clavicular wasting per visual assessment Malnutrition Assessment: - will continue 3pm snack daily (per pt Interventions preference and per diet "as tolerated"): tuna sandwich on wheat + WHOLE milk (470 kcals, 19 g prot) - pt desires and would benefit from WHOLE milk, sugar for coffee, and Ensure Clear - will add Ensure Clear @ B-L-D (240 kcals, 8 g prot/serv) - when pt feels ready to upgrade, offer strawberry Ensure Enlive (350 kcals, 20 g prot/ serv) - cottage cheese as desired (80 kcals, 8 g prot / serv) Malnutrition Assessment: Goals 1. pt will tolerate post-op diet progression without adverse GI effects 2. adequate po intake to maintain lean body mass and hydration without wt loss 3. achieve and maintain regulated bowel pattern without c/o constipation (or diarrhea) Result Diagrams: 03/29/19 05:18 03/27/19 05:39 Microbiology and Other Data: Microbiology 03/25/19 23:35 Nasal Screen MRSA (PCR) - Final Nasal Mrsa Not Detected 03/23/19 09:00 Stool Occult Blood (IZABEL) - Final Stool Assess/Plan/Problems-Billing Assessment: 63 y/o male patient [place] [facility] [place] of abdominal pain found to have appendicitis s/p appendectomy with subsequent hemoperitoneum and take back to the OR we were asked to eval for elevated INR and to follow do to comorbid medical conditions - Patient Problems (1) Supratherapeutic INR Current Visit: Yes Status: Acute Priority: High Comment: INR 4.25 no obivuos signs of bleeding would follow h and h closel, hold coumadin for now and retart once below 3. would restart at lower dose. (2) Acute blood loss anemia Current Visit: Yes Status: Acute Priority: High Comment: monitor H/H. (3) Atrial fibrillation Current Visit: Yes Status: Acute Priority: High Comment: - Rate is controlled. - Continue Atenolol; diltiazem on hold for now. hold coumadin for now give INR (4) Bipolar disorder Current Visit: Yes Status: Acute Priority: High Comment: - Continue Bupropion, Divalproex, Lamotrigine, and Quetiapine. (5) DVT prophylaxis Current Visit: Yes Status: Acute Priority: High Comment: - SCDs for now. INR 4.25 (6) Full code status Current Visit: Yes Status: Acute Priority: High (7) S/P right colectomy Current Visit: Yes Status: Acute Priority: High Comment: - Complicated by hemoperitoneum, requiring return to OR. - Management as per Surgery. Status and Disposition: dispo per surgery
[2019-03-31 18:27] LABS: ABS Eosinophils 0.5 10^3/ul (0-0.6); ABS Lymphocytes 1.5 10^3/ul (1.0-4.8); ABS Monocytes 0.8 10^3/ul (0-0.8); ABS Neutrophils 6.3 10^3/ul (1.5-7.7); Eosinophil % 5.8 %; Hematocrit 25 % (42-52); Hemoglobin 8.4 g/dL (14.0-18.0); Lymphocyte % 16.5 %; Mean Corpuscular HGB Conc 34 g/dL (31-36); Mean Corpuscular Hemoglobin 32 pg (27-31); Mean Corpuscular Volume 94 fL (80-94); Mean Platelet Volume 6.7 fL (7.4-10.4); Nucleated Red Blood Cells % 0.1; Platelet Count 300 10^3/uL (150-450); Red Blood Count 2.65 10^6 /uL (4.18-5.48); Red Cell Distribution Width 14 % (10-15); White Blood Count 9.2 10^3/uL (3.5-10.8)
[2019-03-31] MEDS: Pantoprazole IV* 40 MG IV SCH (19:44)
[2019-03-31] MEDS: QUEtiapine TAB* 100 MG PO SCH (22:43)
[2019-04-01] MEDS: QUEtiapine TAB* 100 MG PO SCH ×2 (00:14→20:22)
[2019-04-01] MEDS: lamoTRIgine TAB(*) 100 MG PO SCH ×3 (00:14→20:22)
[2019-04-01] MEDS: Atenolol TAB* 50 MG PO SCH ×3 (00:14→20:21)
[2019-04-01] MEDS: buPROPion SR TAB.SR* 200 MG PO SCH ×3 (00:15→20:21)
[2019-04-01] MEDS: oxyCODONE TAB* 5 MG TAB PO PRN ×3 (00:20→14:17)
[2019-04-01] MEDS: Ondansetron INJ* 2 MG/ML VIAL IV PRN ×2 (02:14→08:30)
[2019-04-01 05:53] LABS: ABS Eosinophils 0.5 10^3/ul (0-0.6); ABS Lymphocytes 1.2 10^3/ul (1.0-4.8); ABS Monocytes 0.7 10^3/ul (0-0.8); ABS Neutrophils 5.9 10^3/ul (1.5-7.7); Eosinophil % 5.6 %; Hematocrit 24 % (42-52); Hemoglobin 8.2 g/dL (14.0-18.0); INR 2.93 (0.82-1.09); Lymphocyte % 14.2 %; Mean Corpuscular HGB Conc 34 g/dL (31-36); Mean Corpuscular Hemoglobin 32 pg (27-31); Mean Corpuscular Volume 93 fL (80-94); Mean Platelet Volume 6.7 fL (7.4-10.4); Nucleated Red Blood Cells % 0.1; Platelet Count 282 10^3/uL (150-450); Red Blood Count 2.56 10^6 /uL (4.18-5.48); Red Cell Distribution Width 13 % (10-15); White Blood Count 8.3 10^3/uL (3.5-10.8)
[2019-04-01] MEDS: ValACYclovir (*) 500 MG TAB PO SCH (08:29)
[2019-04-01] MEDS: Divalproex ER TAB(*) 250 MG PO SCH (08:29)
[2019-04-01] MEDS: Cetirizine* 10 MG TAB PO SCH (08:30)
--- NOTE | 2019-04-01 12:40 | PN ---
Progress Note - Progress Note Date of Service: 04/01/19 SOAP: Subjective:c/o dizziness with ambulation;is drinking Ensure but not eating solids;passing flatus and had a "tarry" stool yesterday;states he is unhappy with his care here and wants to go to a hospital in [facility] [] Objective: Vital Signs Temp 98.1 F 04/01/19 11:11 Pulse 78 04/01/19 11:11 Resp 17 04/01/19 11:11 BP 114/62 04/01/19 11:11 Pulse Ox 100 04/01/19 11:11 Intake & Output 03/31/19 04/01/19 04/01/19 18:59 06:59 18:59 Intake Total 1911 200 Output Total 1200 850 725 Balance 711 -650 -725 Intake: IV Fluids 1354 NS (0.9%) 1354 IVPB 107 ABX - ZOSYN 107 Oral 450 200 Output: Urine 1200 850 725 Other: Date of Last Bowel 04/01/19 Movement # Bowel Movements 2 Estimated Stool Amount Medium Laboratory Results - last 24 hr 03/31/19 03/31/19 04/01/19 13:12 18:16 05:36 WBC 9.2 8.3 RBC 2.65 L 2.56 L Hgb 8.4 L 8.2 L Hct 25 L 24 L MCV 94 93 MCH 32 H 32 H MCHC 34 34 RDW 14 13 Plt Count 300 282 MPV 6.7 L 6.7 L Neut % (Auto) 68.6 71.2 Lymph % (Auto) 16.5 14.2 Putnam % (Auto) 8.6 8.4 Eos % (Auto) 5.8 5.6 Baso % (Auto) 0.5 0.6 Absolute Neuts (auto) 6.3 5.9 Absolute Lymphs (auto) 1.5 1.2 Absolute Monos (auto) 0.8 0.7 Absolute Eos (auto) 0.5 0.5 Absolute Basos (auto) 0.0 0.0 Absolute Nucleated RBC 0.0 0.0 Nucleated RBC % 0.1 0.1 INR (Anticoag Therapy) 4.25 H 04/01/19 05:36 WBC RBC Hgb Hct MCV MCH MCHC RDW Plt Count MPV Neut % (Auto) Lymph % (Auto) Putnam % (Auto) Eos % (Auto) Baso % (Auto) Absolute Neuts (auto) Absolute Lymphs (auto) Absolute Monos (auto) Absolute Eos (auto) Absolute Basos (auto) Absolute Nucleated RBC Nucleated RBC % INR (Anticoag Therapy) 2.93 H abd:+bs,soft,nondistended;midline and left lateral incisions intact with omega ,no infection;mild tenderness R mid abd;ext:nontender calves [] Assessment:POD#7 s/p ex lap,R colectomy for chronic appendicitis with return to OR on POD#1 for hemoperitoneum;poor appetite but otherwise stable;INR<3 today [] Plan:update Dr Carolina,pt wishes to see Dr Carolina today;?resume Coumadin at 5mg daily []
[2019-04-01] MEDS ORDERED: oxyCODONE/Acetamin 10/325(NF) TAB PO PRN (13:40)
--- NOTE | 2019-04-01 13:54 | PN ---
Progress Note - Progress Note Date of Service: 04/01/19 Note: 04/01/[address] ROCK WHO ANSWERED ALL OF 'S QUESTIONS;DR ROCK ADVISED REMOVING SURGICAL OLGA TODAY AND PLANNING ON DISCHARGE TOMORROW.WILL RESUME COUMADIN(WARFARIN) TODAY AT [facility] AND CHECK INR TOMORROW MORNING;WILL DECREASE FREQUENCY OF OXYCODONE,AND THE PATIENT IS AGREEABLE TO THIS;WILL CONVERT IV MEDS TO PO.PATIENT EXPRESSED AGREEMENT WITH ABOVE PLAN.HELP DESK SUPPORT UPDATED.JOSEE PERLA
[2019-04-01 14:00] LABS: INR 2.63 (0.82-1.09)
[2019-04-01] MEDS: oxyCODONE/Acetamin 5/325 MG* TAB PO PRN (14:17)
[2019-04-01] MEDS: Ondansetron ODT TAB* 4 MG SL PRN ×3 (14:18→22:02)
--- NOTE | 2019-04-01 14:36 | PN ---
Subjective Date of Service: 04/01/19 Interval History: Reports that he is feeling well. Denies chest pain or shortness of breath. Reports BM yesterday. Denies fever or chills. appetite has improved Family History: Unchanged from Admission Social History: Unchanged from Admission Past Medical History: Unchanged from Admission Objective Active Medications: Atenolol (Tenormin Tab*) 50 mg PO BID@0900,2100 [facility] Last Admin: 04/01/19 08:30 Dose: 50 mg Bupropion HCl (Wellbutrin Sr Tab*) 200 mg PO BID [facility] Last Admin: 04/01/19 08:29 Dose: 200 mg Cetirizine HCl (Zyrtec*) 10 mg PO DAILY [facility] Last Admin: 04/01/19 08:30 Dose: 10 mg Divalproex Sodium (Depakote Er Tab(*)) 250 mg PO DAILY [facility] Last Admin: 04/01/19 08:29 Dose: 250 mg Lamotrigine (Lamictal Tab(*)) 100 mg PO BID [facility] Last Admin: 04/01/19 08:29 Dose: 100 mg Lorazepam (Ativan Tab(*)) 0.5 mg PO ONCE PRN PRN Reason: ANXIETY Naloxone HCl (Narcan*) 0.08 mg IV PUSH .Q2MIN PRN PRN Reason: OVERSEDATION Ondansetron HCl (Zofran Odt Tab*) 4 mg SL Q6H PRN PRN Reason: NAUSEA/VOMITING Last Admin: 04/01/19 14:18 Dose: 4 mg Oxycodone HCl (Roxycodone Tab*) 5 mg PO Q12H PRN PRN Reason: PAIN - SEVERE Last Admin: 04/01/19 14:17 Dose: 5 mg Oxycodone/Acetaminophen (Percocet 5/325 Tab*) 1 tab PO Q12H PRN PRN Reason: PAIN - SEVERE Last Admin: 04/01/19 14:17 Dose: 1 tab Pantoprazole Sodium (Protonix Tab*) 40 mg PO BID [facility] Quetiapine Fumarate (Seroquel Tab*) 150 mg PO BEDTIME [facility] Last Admin: 04/01/19 00:14 Dose: 150 mg Valacyclovir HCl (Valtrex 500 Mg (*)) 500 mg PO DAILY [facility] Last Admin: 04/01/19 08:29 Dose: 500 mg Warfarin Sodium (Coumadin Tab(*)) 5 mg PO DAILY@1700 [facility]; Protocol Vital Signs - 8 hr 04/01/19 04/01/19 04/01/19 07:19 08:10 08:38 Temperature 97.8 F Pulse Rate 76 Respiratory 15 16 14 Rate Blood Pressure 116/56 (mmHg) O2 Sat by Pulse 99 Oximetry 04/01/19 04/01/19 11:11 14:17 Temperature 98.1 F Pulse Rate 78 Respiratory 17 20 Rate Blood Pressure 114/62 (mmHg) O2 Sat by Pulse 100 Oximetry Oxygen Devices in Use Now: None Appearance: appears comfortable , sitting in bed, no acute distress Eyes: No Scleral Icterus Ears/Nose/Mouth/Throat: Clear Oropharnyx, Mucous Membranes Moist Neck: NL Appearance and Movements; NL JVP, Trachea Midline Respiratory: Symmetrical Chest Expansion and Respiratory Effort, Clear to Auscultation Cardiovascular: NL Sounds; No Murmurs; No JVD, No Edema Abdominal: NL Sounds; No Tenderness; No Distention Extremities: No Edema, No Clubbing, Cyanosis Skin: No Rash or Ulcers, - - surgical incision to lower abd, without surrounding redness or drainage Neurological: Alert and Oriented x 3 Nutrition: Taking PO's - Nutrition: Malnutrition Diagnosis/Plan Malnutrition Assessment by Registered Dietitian: Malnutrition Assessment Clinical Characteristics Acute,Moderate Malnutrition Assessment: - po intake <75% EEE x > 7 days Criteria - mild temporal and clavicular wasting per visual assessment Malnutrition Assessment: - will continue 3pm snack daily (per pt Interventions preference and per diet "as tolerated"): tuna sandwich on wheat + WHOLE milk (470 kcals, 19 g prot) - pt desires and would benefit from WHOLE milk, sugar for coffee, and Ensure Clear - will add Ensure Clear @ B-L-D (240 kcals, 8 g prot/serv) - when pt feels ready to upgrade, offer strawberry Ensure Enlive (350 kcals, 20 g prot/ serv) - cottage cheese as desired (80 kcals, 8 g prot / serv) Malnutrition Assessment: Goals 1. pt will tolerate post-op diet progression without adverse GI effects 2. adequate po intake to maintain lean body mass and hydration without wt loss 3. achieve and maintain regulated bowel pattern without c/o constipation (or diarrhea) Result Diagrams: 04/01/19 05:36 03/27/19 05:39 Microbiology and Other Data: Microbiology 03/25/19 23:35 Nasal Screen MRSA (PCR) - Final Nasal Mrsa Not Detected 03/23/19 09:00 Stool Occult Blood (IZABEL) - Final Stool Assess/Plan/Problems-Billing Assessment: 63 y/o male patient [place] [facility] [place] of abdominal pain found to have appendicitis s/p appendectomy with subsequent hemoperitoneum and take back to the OR we were asked to eval for elevated INR and to follow do to comorbid medical conditions - Patient Problems (1) S/P right colectomy Current Visit: Yes Status: Acute Priority: High Code(s): Z90.49 - ACQUIRED ABSENCE OF OTHER SPECIFIED PARTS OF DIGESTIVE TRACT SNOMED Code(s): 361309186 Comment: - Complicated by hemoperitoneum, requiring return to OR. - Management as per Surgery. (2) Acute blood loss anemia Current Visit: Yes Status: Acute Priority: High Code(s): D62 - ACUTE POSTHEMORRHAGIC ANEMIA SNOMED Code(s): 292143224 Comment: monitor H/H. (3) Atrial fibrillation Current Visit: Yes Status: Acute Priority: High Code(s): I48.91 - UNSPECIFIED ATRIAL FIBRILLATION SNOMED Code(s): 56276288 Comment: - Rate is controlled. - Continue Atenolol; diltiazem on hold for now. - resume coumadin INR 2.63 today (4) Bipolar disorder Current Visit: Yes Status: Acute Priority: High Code(s): F31.9 - BIPOLAR DISORDER, UNSPECIFIED SNOMED Code(s): 04594560 Comment: - Continue Bupropion, Divalproex, Lamotrigine, and Quetiapine. (5) Supratherapeutic INR Current Visit: Yes Status: Acute Priority: High Code(s): R79.1 - ABNORMAL COAGULATION PROFILE SNOMED Code(s): 143734074 Comment: resolved INR 2.63 today - resume coumadin (6) DVT prophylaxis Current Visit: Yes Status: Acute Priority: High Code(s): Z29.9 - ENCOUNTER FOR PROPHYLACTIC MEASURES, UNSPECIFIED SNOMED Code(s): 076868413 Comment: - SCDs - Coumadin - INR 2.63 (7) Full code status Current Visit: Yes Status: Acute Priority: High Code(s): Z78.9 - OTHER SPECIFIED HEALTH STATUS SNOMED Code(s): 128689836 Status and Disposition: dispo per surgery
--- NOTE | 2019-04-01 16:58 | PN ---
Progress Note - Progress Note Date of Service: 04/01/19 Note: Saw patient with GERI Barlow; discussed staple removal with patient and he decided to wait until tomorrow due to previous complications with infection after staple removal from past surgery. Patient felt comfortable with leaving omega in and possibly getting every other staple removed tomorrow and reinforcing wound with steri-strips. Patient says he will be in the area for the next week and will be able to follow up at the office. Wound was clean and dry without drainage or tenderness. Small 3cm area of erythema extending laterally to the right of the wound that is nontender to palpation. Patient instructed to monitor the area for increased redness or pain. Patient agrees with plan. Signed, TONY Hammer
[2019-04-01] MEDS: Warfarin TAB(*) 5 MG PO SCH (17:35)
[2019-04-01] MEDS: Pantoprazole TAB * 40 MG TAB PO SCH (17:35)
[2019-04-02] MEDS: oxyCODONE TAB* 5 MG TAB PO PRN ×2 (02:20→14:40)
[2019-04-02] MEDS: oxyCODONE/Acetamin 5/325 MG* TAB PO PRN ×2 (02:21→14:41)
[2019-04-02] MEDS: Ondansetron ODT TAB* 4 MG SL PRN ×2 (07:27→17:21)
[2019-04-02] MEDS: ValACYclovir (*) 500 MG TAB PO SCH (09:09)
[2019-04-02] MEDS: buPROPion SR TAB.SR* 200 MG PO SCH ×2 (09:09→21:08)
[2019-04-02] MEDS: Divalproex ER TAB(*) 250 MG PO SCH (09:09)
[2019-04-02] MEDS: Atenolol TAB* 50 MG PO SCH ×2 (09:09→21:09)
[2019-04-02] MEDS: Cetirizine* 10 MG TAB PO SCH (09:09)
[2019-04-02] MEDS: lamoTRIgine TAB(*) 100 MG PO SCH ×2 (09:09→21:09)
[2019-04-02] MEDS: Pantoprazole TAB * 40 MG TAB PO SCH ×2 (09:09→21:08)
[2019-04-02] MEDS ORDERED: Meclizine TAB* 12.5 MG PO ONE (10:29)
[2019-04-02] MEDS ORDERED: LORazepam INJ* 2 MG/ML 1 ML VIAL ONE (11:15)
[2019-04-02] MEDS: LORazepam INJ* 2 MG/ML 1 ML VIAL IV PUSH ONE ×2 (11:16→11:25)
[2019-04-02] MEDS ORDERED: Lorazepam PYXIS KEY ONE (11:30)
[2019-04-02 11:46] LABS: ABS Eosinophils 0.4 10^3/ul (0-0.6); ABS Lymphocytes 1.2 10^3/ul (1.0-4.8); ABS Monocytes 0.6 10^3/ul (0-0.8); ABS Neutrophils 6.2 10^3/ul (1.5-7.7); Eosinophil % 4.6 %; Hematocrit 27 % (42-52); Hemoglobin 9.2 g/dL (14.0-18.0); Lymphocyte % 14.6 %; Mean Corpuscular HGB Conc 34 g/dL (31-36); Mean Corpuscular Hemoglobin 32 pg (27-31); Mean Corpuscular Volume 93 fL (80-94); Mean Platelet Volume 6.6 fL (7.4-10.4); Nucleated Red Blood Cells % 0.1; Platelet Count 353 10^3/uL (150-450); Red Blood Count 2.89 10^6 /uL (4.18-5.48); Red Cell Distribution Width 14 % (10-15); White Blood Count 8.5 10^3/uL (3.5-10.8)
[2019-04-02 11:54] LABS: INR 2.42 (0.82-1.09)
[2019-04-02 11:58] LABS: Calcium 8.6 mg/dL (8.6-10.3); Potassium 4.3 mmol/L (3.5-5.0)
[2019-04-02 12:03] LABS: BUN/Creatinine Ratio 10.7 (8-20); EGFR African American 128.1 (>60); EGFR Non-African American 105.9 (>60)
--- NOTE | 2019-04-02 12:11 | PN ---
Progress Note - Progress Note Date of Service: 04/02/19 SOAP: Subjective:c/o dizziness,headache,very anxious,thrashing about and hanging on to siderails [] Objective: Vital Signs Temp 98.5 F 04/02/19 07:21 Pulse 77 04/02/19 07:21 Resp 20 04/02/19 11:25 BP 134/43 04/02/19 07:21 Pulse Ox 100 04/02/19 07:21 Intake & Output 04/01/19 04/02/19 04/02/19 18:59 06:59 18:59 Intake Total 500 785 Output Total 1825 1100 Balance -1325 -315 Intake: IV Fluids 35 NS (0.9%) 35 IVPB 110 ABX - ZOSYN 110 Oral 500 640 Output: Urine 1825 1100 neuro:alert,oriented;no neuro deficits;very anxious and appears to be having a panic attack or opioid withdrawal;lungs:clear bilat;heart:irreg consistent with afib;abd:flat,+bs;incision C/D/I with omega,no erythema;ext:full rom,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
[2019-04-02] MEDS ORDERED: LORazepam TAB(*) 0.5 MG PO PRN (12:25)
[2019-04-02] MEDS: Warfarin TAB(*) 5 MG PO SCH (17:17)
[2019-04-02] MEDS: QUEtiapine TAB* 100 MG PO SCH (21:13)
--- NOTE | 2019-04-02 21:36 | CONSULT ---
Consult Consult: INPATIENT PAIN CONSULTATION Favian Yu is a 63 year old male. 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 20 years ago, he got sober. He went to meetings for several years. He has a history of obesity and had gastric bypass surgery and lost over 150 pounds. 10 years ago, he suffered a injury to his right shoulder requiring reconstructive surgery. He was put on Percocet after that, and eventually took more and more of them, then had a hard time getting off them. He was eventually put on Suboxone and was on Suboxone for many years before switching to the long acting injectable buprenorphine. He says he stopped this 6-8 months ago. He was in [place] visiting his mother when he developed worsening RLQ abdominal pain. He had a CT scan showing a thick walled appendix. He is anticoagulated for a-fib, so there was a delay in taking him to surgery. He went to the OR on March 25 for an exp lap, converted to an open laparotomy with a right colectomy. Post-op , there was a hemoperitoneum requiring going back to the OR March 26. He had a lot of pain after the second surgery and was on IV Morphine and oral opioids. As he was transitioning to oral meds, he has had some trouble with pain. I am asked to see him PAST MEDICAL HISTORY: As above, atrial fibrillation, gastric bypass Allergies Allergy/AdvReac Type Severity Reaction Status Date / Time codeine Allergy GI Upset Verified 03/23/19 08:35 NSAIDS (Non-Steroidal AdvReac Mild See Comment Verified 03/23/19 17:12 Anti-Inflamma Current Medications Atenolol (Tenormin Tab*) 50 mg PO BID@0900,2100 [facility] Last Admin: 04/02/19 21:09 Dose: 50 mg Bupropion HCl (Wellbutrin Sr Tab*) 200 mg PO BID [facility] Last Admin: 04/02/19 21:08 Dose: 200 mg Cetirizine HCl (Zyrtec*) 10 mg PO DAILY [facility] Last Admin: 04/02/19 09:09 Dose: 10 mg Divalproex Sodium (Depakote Er Tab(*)) 250 mg PO DAILY [facility] Last Admin: 04/02/19 09:09 Dose: 250 mg Lamotrigine (Lamictal Tab(*)) 100 mg PO BID [facility] Last Admin: 04/02/19 21:09 Dose: 100 mg Lorazepam (Ativan Tab(*)) 0.5 mg PO ONCE PRN PRN Reason: ANXIETY Lorazepam (Ativan Tab(*)) 0.5 mg PO Q8H PRN PRN Reason: ANXIETY Ondansetron HCl (Zofran Odt Tab*) 4 mg SL Q6H PRN PRN Reason: NAUSEA/VOMITING Last Admin: 04/02/19 17:21 Dose: 4 mg Oxycodone HCl (Roxycodone Tab*) 5 mg PO Q12H PRN PRN Reason: PAIN - SEVERE Last Admin: 04/02/19 14:40 Dose: 5 mg Oxycodone/Acetaminophen (Percocet 5/325 Tab*) 1 tab PO Q12H PRN PRN Reason: PAIN - SEVERE Last Admin: 04/02/19 14:41 Dose: 1 tab Pantoprazole Sodium (Protonix Tab*) 40 mg PO BID [facility] Last Admin: 04/02/19 21:08 Dose: 40 mg Quetiapine Fumarate (Seroquel Tab*) 150 mg PO BEDTIME [facility] Last Admin: 04/02/19 21:13 Dose: 150 mg Valacyclovir HCl (Valtrex 500 Mg (*)) 500 mg PO DAILY [facility] Last Admin: 04/02/19 09:09 Dose: 500 mg Warfarin Sodium (Coumadin Tab(*)) 5 mg PO DAILY@1700 [facility]; Protocol Last Admin: 04/02/19 17:17 Dose: 5 mg SOCIAL HISTORY: Lives in [facility]. Says he doesn't drink. Frequent marijuana, no cigarettes. Unemployed ROS: No chest pain or SOB Vital Signs Temp Pulse Resp BP Pulse Ox 97 F 69 20 137/69 100 04/02/19 21:07 04/02/19 21:07 04/02/19 21:07 04/02/19 21:07 04/02/19 21:07 EXAM: LUNGS: Clear HEART: reg rhythm ABDOMEN: Soft NEUROLOGIC: Alert, moves all 4 extremities ASSESSMENT: 1. Laparotomy, right colon resection 2. History of opiate abuse PLAN: Given his trouble with oxycodone in the past, would try to get him back on Suboxone. As I do not write for it, he would have to be referrred to [facility] or a Suboxone provider. Complicating the matter is that he lives in [place].
--- NOTE | 2019-04-02 22:46 | PN ---
Subjective Date of Service: 04/02/19 Interval History: patient c/o dizziness and headache this AM , Per nursing staff was holding on the bed rail do to the severe dizziness. Patient also reports feeling anxious. Patient was given ativan for his symptoms with resolution of his symptoms. Patient was recently weaned off of IV dilaudid and could be experience withdrawal for pain medications Consult had been placed to pain management for further recommendations. Neurological checks WNL- no pronator drift, no leg drift, hand nut grader are equal, smile is equal, finger to nose is intact. Family History: Unchanged from Admission Social History: Unchanged from Admission Past Medical History: Unchanged from Admission Objective Active Medications: Atenolol (Tenormin Tab*) 50 mg PO BID@0900,2100 [facility] Last Admin: 04/02/19 21:09 Dose: 50 mg Bupropion HCl (Wellbutrin Sr Tab*) 200 mg PO BID [facility] Last Admin: 04/02/19 21:08 Dose: 200 mg Cetirizine HCl (Zyrtec*) 10 mg PO DAILY [facility] Last Admin: 04/02/19 09:09 Dose: 10 mg Divalproex Sodium (Depakote Er Tab(*)) 250 mg PO DAILY [facility] Last Admin: 04/02/19 09:09 Dose: 250 mg Lamotrigine (Lamictal Tab(*)) 100 mg PO BID [facility] Last Admin: 04/02/19 21:09 Dose: 100 mg Lorazepam (Ativan Tab(*)) 0.5 mg PO ONCE PRN PRN Reason: ANXIETY Lorazepam (Ativan Tab(*)) 0.5 mg PO Q8H PRN PRN Reason: ANXIETY Last Admin: 04/02/19 21:46 Dose: 0.5 mg Ondansetron HCl (Zofran Odt Tab*) 4 mg SL Q6H PRN PRN Reason: NAUSEA/VOMITING Last Admin: 04/02/19 17:21 Dose: 4 mg Oxycodone HCl (Roxycodone Tab*) 5 mg PO Q12H PRN PRN Reason: PAIN - SEVERE Last Admin: 04/02/19 14:40 Dose: 5 mg Oxycodone/Acetaminophen (Percocet 5/325 Tab*) 1 tab PO Q12H PRN PRN Reason: PAIN - SEVERE Last Admin: 04/02/19 14:41 Dose: 1 tab Pantoprazole Sodium (Protonix Tab*) 40 mg PO BID [facility] Last Admin: 04/02/19 21:08 Dose: 40 mg Quetiapine Fumarate (Seroquel Tab*) 150 mg PO BEDTIME [facility] Last Admin: 04/02/19 21:13 Dose: 150 mg Valacyclovir HCl (Valtrex 500 Mg (*)) 500 mg PO DAILY [facility] Last Admin: 04/02/19 09:09 Dose: 500 mg Warfarin Sodium (Coumadin Tab(*)) 5 mg PO DAILY@1700 [facility]; Protocol Last Admin: 04/02/19 17:17 Dose: 5 mg Vital Signs - 8 hr 04/02/19 04/02/19 04/02/19 15:25 15:44 17:22 Temperature 98.1 F 98.4 F Pulse Rate 70 72 Respiratory 17 17 18 Rate Blood Pressure 133/51 134/74 (mmHg) O2 Sat by Pulse 97 98 Oximetry 04/02/19 04/02/19 04/02/19 19:09 19:20 21:07 Temperature 98 F 97 F Pulse Rate 76 69 Respiratory 17 20 20 Rate Blood Pressure 137/77 137/69 (mmHg) O2 Sat by Pulse 100 100 Oximetry 04/02/19 21:46 Temperature Pulse Rate Respiratory 19 Rate Blood Pressure (mmHg) O2 Sat by Pulse Oximetry Oxygen Devices in Use Now: None Appearance: calm resting in bed, no acute distress at this time Eyes: No Scleral Icterus Ears/Nose/Mouth/Throat: Clear Oropharnyx, Mucous Membranes Moist Neck: NL Appearance and Movements; NL JVP, Trachea Midline Respiratory: Symmetrical Chest Expansion and Respiratory Effort, Clear to Auscultation Cardiovascular: NL Sounds; No Murmurs; No JVD, No Edema Abdominal: NL Sounds; No Tenderness; No Distention Extremities: No Edema, No Clubbing, Cyanosis Skin: No Rash or Ulcers Neurological: Alert and Oriented x 3 Nutrition: Taking PO's - Nutrition: Malnutrition Diagnosis/Plan Malnutrition Assessment by Registered Dietitian: Malnutrition Assessment Clinical Characteristics Acute,Moderate Malnutrition Assessment: - po intake <75% EEE x > 7 days Criteria - mild temporal and clavicular wasting per visual assessment Malnutrition Assessment: - will continue 3pm snack daily (per pt Interventions preference and per diet "as tolerated"): tuna sandwich on wheat + WHOLE milk (470 kcals, 19 g prot) - pt desires and would benefit from WHOLE milk, sugar for coffee, and Ensure Clear - will add Ensure Clear @ B-L-D (240 kcals, 8 g prot/serv) - when pt feels ready to upgrade, offer strawberry Ensure Enlive (350 kcals, 20 g prot/ serv) - cottage cheese as desired (80 kcals, 8 g prot / serv) Malnutrition Assessment: Goals 1. pt will tolerate post-op diet progression without adverse GI effects 2. adequate po intake to maintain lean body mass and hydration without wt loss 3. achieve and maintain regulated bowel pattern without c/o constipation (or diarrhea) Result Diagrams: 04/02/19 11:29 04/02/19 11:29 Microbiology and Other Data: Microbiology 03/25/19 23:35 Nasal Screen MRSA (PCR) - Final Nasal Mrsa Not Detected 03/23/19 09:00 Stool Occult Blood (IZABEL) - Final Stool Assess/Plan/Problems-Billing Assessment: 63 y/o [place] [facility] [place] of [place] pain found to have appendicitis s/p appendectomy with subsequent hemoperitoneum and take back to the OR we were asked to eval for elevated INR and to follow do to comorbid medical conditions - Patient Problems (1) S/P right colectomy Current Visit: Yes Status: Acute Priority: High Code(s): Z90.49 - ACQUIRED ABSENCE OF OTHER SPECIFIED PARTS OF DIGESTIVE TRACT SNOMED Code(s): 040326114 Comment: - Complicated by hemoperitoneum, requiring return to OR. - Management as per Surgery. - pain management per surgery (2) Acute blood loss anemia Current Visit: Yes Status: Acute Priority: High Code(s): D62 - ACUTE POSTHEMORRHAGIC ANEMIA SNOMED Code(s): 275340419 Comment: s/p 2 units of PRBC's monitor H/H. (3) Atrial fibrillation Current Visit: Yes Status: Acute Priority: High Code(s): I48.91 - UNSPECIFIED ATRIAL FIBRILLATION SNOMED Code(s): 92076070 Comment: - Rate is controlled. - Continue Atenolol; diltiazem on hold for now. -continue coumadin INR 2.63 today (4) Bipolar disorder Current Visit: Yes Status: Acute Priority: High Code(s): F31.9 - BIPOLAR DISORDER, UNSPECIFIED SNOMED Code(s): 92356435 Comment: - Continue Bupropion, Divalproex, Lamotrigine, and Quetiapine. (5) Supratherapeutic INR Current Visit: Yes Status: Acute Priority: High Code(s): R79.1 - ABNORMAL COAGULATION PROFILE SNOMED Code(s): 176888272 Comment: resolved INR 2.63 today - continue coumadin (6) DVT prophylaxis Current Visit: Yes Status: Acute Priority: High Code(s): Z29.9 - ENCOUNTER FOR PROPHYLACTIC MEASURES, UNSPECIFIED SNOMED Code(s): 651307240 Comment: - SCDs - Coumadin - INR 2.63 (7) Full code status Current Visit: Yes Status: Acute Priority: High Code(s): Z78.9 - OTHER SPECIFIED HEALTH STATUS SNOMED Code(s): 127082477 Status and Disposition: dispo per surgery
[2019-04-03] MEDS: oxyCODONE TAB* 5 MG TAB PO PRN ×2 (02:16→13:32)
[2019-04-03] MEDS: oxyCODONE/Acetamin 5/325 MG* TAB PO PRN (02:16)
[2019-04-03 05:25] LABS: INR 2.35 (0.82-1.09)
[2019-04-03] MEDS: Atenolol TAB* 50 MG PO SCH (08:31)
[2019-04-03] MEDS: buPROPion SR TAB.SR* 200 MG PO SCH (10:02)
[2019-04-03] MEDS: Cetirizine* 10 MG TAB PO SCH (10:02)
[2019-04-03] MEDS: Divalproex ER TAB(*) 250 MG PO SCH (10:02)
[2019-04-03] MEDS: Pantoprazole TAB * 40 MG TAB PO SCH (10:03)
[2019-04-03] MEDS: lamoTRIgine TAB(*) 100 MG PO SCH (10:03)
[2019-04-03] MEDS: ValACYclovir (*) 500 MG TAB PO SCH (10:04)
[2019-04-03] MEDS: Ondansetron ODT TAB* 4 MG SL PRN (10:33)
[2019-04-03 11:32] VITALS: BP 106/63
--- NOTE | 2019-04-03 15:45 | DS ---
DATE OF ADMISSION: 03/23/2019. DATE OF DISCHARGE: 04/03/2019. ATTENDING SURGEON: Dr. Nando Carolina.* (DICTATED BY ANNA RICE NP) HOSPITAL COURSE: The patient is a 63-year-old male who presented to the [facility] Emergency Department on 03/23/2019 with a chief complaint of three weeks of lower abdominal pain. CAT scan of the abdomen and pelvis revealed a mass in the right lower quadrant, a thick walled and hyperemic appendix, and a periappendiceal fluid collection. On March 25, he was taken to the operating room by Dr. Carolina and underwent exploratory laparotomy converted to open laparotomy and right colectomy for acute suppurative appendix with perforation. The pathology did not reveal any malignancy. On 03/26/2019, the patient was hypotensive and diaphoretic and was transferred to the Intensive Care Unit for observation and received four liters of crystalloid resuscitation. His hemoglobin dropped to 6.5 and his abdomen was distended. He received a transfusion of packed red blood cells and was taken back to the operating room by Dr. Heredia and underwent exploratory laparotomy for hemoperitoneum with evacuation of blood and clot, but there was no site of active bleeding. The patient's postoperative course has been complicated by pain management issues as he does have a history of previous substance abuse. He required Dilaudid IV with frequent doses and had difficulty transitioning to oral analgesics. Therefore, a Pain Management consult with Dr. Ariza was obtained. We have been able to gradually reduce the frequency of his oral analgesics, specifically Oxycodone and he was weaned off of Dilaudid on 03/29/2019. We had a Social Work consult to ascertain a safe discharge and the patient will be discharged to stay with his mother at [facility]. The patient lives in [place] and he was visiting when he was admitted to our hospital. He had an episode yesterday of what was either a panic attack or symptoms of opioid withdrawal and responded well to one dose of Ativan 0.5 mg IV. He has been able to tolerate solid foods with a gradual improvement in his appetite. He has been ambulating in the halls. He is voiding without any difficulty. PHYSICAL EXAMINATION: General: In no acute distress. Vital Signs: Temperature 97.3, pulse 88, respiratory rate 16, O2 saturation on room air 100 percent, blood pressure 106/63. Lungs: Breath sounds bilaterally clear and equal. Heart : Irregularly irregular, consistent with chronic atrial fibrillation. Abdomen: Midline incision is well-healed and today all of the surgical omega were removed and Steri-Strips were applied. There was no evidence of infection. Bowel sounds were active and the abdomen was soft and nondistended. Extremities : Nontender calves. IMPRESSION: Status post exploratory laparotomy with conversion to open laparotomy and right colectomy for acute suppurative appendix with perforation on 03/25/2019 with a return to the OR 03/26/2019 for evacuation of hemoperitoneum. He is currently doing well. His condition is stable. PLAN: Discharge to his mother's home today. He will resume his usual home medications, including Coumadin 5 mg p.o. daily. He will have an INR drawn at the [facility] on 04/08/2019 and he states that those results are sent to his primary care provider in [place] and he will follow-up for further Coumadin dosing recommendations. He has a follow-up office visit at [facility] on 04/11/2019 and knows to call sooner with any concerns. I prescribed Oxycodone 5 mg that he may take every 8 hours prn for the next five days and then he is to wean down to 5 mg every 12 hours for four days and at that time he will be seeing Mr. White, our physician's mobile sales assistant in our office. He is to receive no further refills of Oxycodone or any other opioid analgesic from our office and I have made our office nurses aware of that. The patient states that he is in agreement with this plan. I should mention that his hemoglobin is stable at 9.2, white blood cell count is normal at 8.5, and electrolytes are all within normal limits. TIME SPENT: Time spent in this discharge was 60 minutes with greater than 50 percent in [id number] patient counseling and coordination of care. ANNA RICE NP [id number]/[facility] #: [id number] JOHN
== END 2019-04-03 14:31 | disposition home or self-care (01) | DRG 221 ==
LOC: ED 08:27 → SSU 12:21 → OR 13:11 → ICU 03-25 23:21 → SSU 03-26 09:47
PROVIDERS: ADMIT Surgery; ATTEND Surgery
PROC: 0DJD4ZZ Inspection of Lower Intestinal Tract, Percutaneous Endoscopic Approach (ICD-10-PCS; 2019-03-25)
PROC: 0DTF0ZZ Resection of Right Large Intestine, Open Approach (ICD-10-PCS; principal; 2019-03-25 16:15)
PROC: 30233N1 Transfusion of Nonautologous Red Blood Cells into Peripheral Vein, Percutaneous Approach (ICD-10-PCS; 2019-03-26)
PROC: 0WCG0ZZ Extirpation of Matter from Peritoneal Cavity, Open Approach (ICD-10-PCS; 2019-03-26)
DX: K35.32 Acute appendicitis with perforation, localized peritonitis, and gangrene, without abscess (principal); K66.1 Hemoperitoneum; D62 Acute posthemorrhagic anemia; K91.840 Postprocedural hemorrhage of a digestive system organ or structure following a digestive system procedure; F11.23 Opioid dependence with withdrawal; I48.91 Unspecified atrial fibrillation; J44.9 Chronic obstructive pulmonary disease, unspecified; I95.81 Postprocedural hypotension; R61 Generalized hyperhidrosis; F31.9 Bipolar disorder, unspecified; Y83.6 Removal of other organ (partial) (total) as the cause of abnormal reaction of the patient, or of later complication, without mention of misadventure at the time of the procedure; Y92.234 Operating room of hospital as the place of occurrence of the external cause; R79.1 Abnormal coagulation profile; G47.33 Obstructive sleep apnea (adult) (pediatric); F41.0 Panic disorder [episodic paroxysmal anxiety]; Z82.3 Family history of stroke; Z98.84 Bariatric surgery status; Z88.5 Allergy status to narcotic agent; Z88.6 Allergy status to analgesic agent; Z80.6 Family history of leukemia; Z87.891 Personal history of nicotine dependence; Z53.31 Laparoscopic surgical procedure converted to open procedure
CPT/HCPCS: 36415; 70450; 74177; 80048; 80053; 81003; 82272; 82550; 83605; 83690; 83735; 83880; 85014; 85018; 85025; 85610; 85730; 86140; 86850; 86900; 86901; 86922; 87641; 88309; 90686; 93005; 99284; A9270-GY; J0330; J1100; J1170; J1885; J2060; J2250; J2270; J2405; J2543; J2590; J2704; J3010; J3490; P9040; Q9967

== ENCOUNTER 2019-06-24 15:32 | Observation (INO) | payer OTHER ==
--- NOTE | 2019-06-24 16:02 | ED ---
HPI Chest Pain - HPI Summary HPI Summary: Patient complains of sudden onset SOB and intermittent chest pain 2 hours. SOB described as constant, with exertion and at rest. CP described as mild, left side pain, sharp, intermittent, lasting seconds at a time. States some mild discomfort in left arm. Denies fever, lightheadedness, cough, sore throat , some N/V/D, abdominal pain, change in urine, change in BM. Patient bradycardic on presentation. History of A. fib on Coumadin, diltiazem and atenolol. - History of Current Complaint Chief Complaint: EDChestPainROMI Time Seen by Provider: 06/24/19 15:45 Hx Obtained From: Patient Onset/Duration: Started Hours Ago Timing: Intermittent Initial Severity: Mild Current Severity: Mild Pain Intensity: 2 Pain Scale Used: 0-10 Numeric Chest Pain Location: Discrete at:, Left Anterior Chest Pain Radiates To:: Arm Character: Sharp/Stabbing Aggravating Factor(s): Nothing Alleviating Factor(s): Spontaneous Resolution Associated Signs and Symptoms: Positive: Chest Pain, Shortness of Breath - Additional Pertinent History Primary Care Physician: [id number] - Allergy/Home Medications Allergies/Adverse Reactions: Allergies Allergy/AdvReac Type Severity Reaction Status Date / Time codeine Allergy Rash Verified 06/24/19 15:43 Home Medications: Home Medications Albuterol inh POWDER (NF) [Proair Respiclick] 1 puff INH Q6HR PRN 06/24/19 [ History Confirmed 06/24/19] Ascorbic Acid TAB* [Vitamin C TAB*] 500 mg PO DAILY 06/24/19 [History Confirmed 06/24/19] Atenolol TAB* [Tenormin TAB* 50 MG] 100 mg PO DAILY 06/24/19 [History Confirmed 06/24/19] Cyanocobalamin (Vitamin B-12) [Vitamin B-12] 500 mcg SL DAILY 06/24/19 [History Confirmed 06/24/19] Ferrous Sulfate TAB* 325 mg PO DAILY 06/24/19 [History Confirmed 06/24/19] Multivitamins/Minerals TAB* [Theragran/minerals TAB*] 1 tab PO DAILY 06/24/19 [ History Confirmed 06/24/19] lamoTRIgine TAB(*) [LaMICtal TAB(*)] 100 mg PO QAM 06/24/19 [History Confirmed 06/24/19] lamoTRIgine TAB(*) [LaMICtal TAB(*)] 150 mg PO QPM 06/24/19 [History Confirmed 06/24/19] PMH/Surg Hx/FS Hx/Imm Hx Endocrine/Hematology History: Reports: Hx Anemia Denies: Hx Diabetes Cardiovascular History: Reports: Hx Atrial Fibrillation, Other Cardiovascular Problems/Disorders - A-fib Denies: Hx Hypertension Respiratory History: Reports: Hx Asthma - childhood asthma, resolved now, Hx Chronic Obstructive Pulmonary Disease (COPD) Denies: Hx Sleep Apnea History: Denies: Hx Renal Disease Sensory History: Reports: Hx Cataracts, Hx Contacts or Glasses Denies: Hx Hearing Aid Opthamlomology History: Reports: Hx Cataracts, Hx Contacts or Glasses EENT History: Denies: Hx Deafness Neurological History: Denies: Hx Dementia - Surgical History Surgery Procedure, Year, and Place: gastric bypass, shoulder surgery. UVVP. colonoscopy. appendectomy Hx Anesthesia Reactions: No Infectious Disease History: No Infectious Disease History: Denies: Traveled Outside the [place] in Last 30 Days - Family History Known Family History: Positive: Other - atrial fibrillation in father - Social History Alcohol Use: None Alcohol Amount: occasional Hx Substance Use: Yes Substance Use Type: Reports: Marijuana Substance Use Comment - Amount & Last Used: on buprenorphine Hx Tobacco Use: Yes Smoking Status (MU): Former Smoker Type: Cigarettes Have You Smoked in the Last Year: Yes Review of Systems Constitutional: Negative Eyes: Negative ENT: Negative Positive: Chest Pain Positive: Shortness Of Breath Gastrointestinal: Negative Genitourinary: Negative Musculoskeletal: Negative Skin: Negative Neurological: Negative Psychological: Normal All Other Systems Reviewed And Are Negative: Yes Physical Exam - Summary Physical Exam Summary: Chest pain not reproducible. Patient in no apparent distress. Lung sounds clear to auscultation bilaterally. Patient bradycardic. Abdomen soft nontender. Triage Information Reviewed: Yes Vital Signs On Initial Exam: Initial Vitals Temp Pulse Resp BP Pulse Ox 96.7 F 35 18 139/68 98 06/24/19 15:40 06/24/19 15:40 06/24/19 15:40 06/24/19 15:40 06/24/19 15:40 Vital Signs Reviewed: Yes Appearance: Positive: Well-Appearing Skin: Positive: Warm Head/Face: Positive: Normal Head/Face Inspection Eyes: Positive: Normal Neck: Positive: Supple Respiratory/Lung Sounds: Positive: Clear to Auscultation Cardiovascular: Positive: Bradycardia Abdomen Description: Positive: Nontender Musculoskeletal: Positive: Normal Neurological: Positive: Normal Psychiatric: Positive: Normal AVPU Assessment: Alert - Himanshu Coma Scale Best Eye Response: 4 - Spontaneous Best Motor Response: 6 - Obeys Commands Best Verbal Response: 5 - Oriented Coma Scale Total: 15 Procedures - Sedation Patient Received Moderate/Deep Sedation with Procedure: No Diagnostics - Vital Signs Vital Signs Temp Pulse Resp BP Pulse Ox 06/24/19 15:47 35 12 124/73 98 06/24/19 15:45 150 06/24/19 15:40 96.7 F 35 18 139/68 98 - Laboratory Result Diagrams: 06/25/19 05:10 06/25/19 05:58 Lab Statement: Any lab studies that have been ordered have been reviewed, and results considered in the medical decision making process. Chest Pain Course/Dx - Course Course Of Treatment: Patient complains of sudden onset SOB and intermittent chest pain 2 hours. SOB described as constant, with exertion and at rest. CP described as mild, left side pain, sharp, intermittent, lasting seconds at a time. States some mild discomfort in left arm. Denies fever, lightheadedness, cough, sore throat, some N/V/D, abdominal pain, change in urine, change in BM. Patient bradycardic on presentation. History of A. fib on Coumadin, diltiazem and atenolol. Patient bradycardic with heart rate of 35. Vital signs otherwise within normal limits. Labs within normal limits. EKG A flutter with heart rate of 44. Prior on 03/23/19 A. fib with heart rate of 64. Chest x-ray unremarkable. Atropine 0.5 resulted in no change in heart rate. Discussed patient with metal trim erector underground conduit installer Dr. Hughes who recommended admission and holding diltiazem and atenolol, suggesting patient possibly bradycardic as a result of decreased renal clearance due to aging. Patient admitted to hospitalist. - Diagnoses Provider Diagnoses: Bradycardia, Shortness of breath, A-fib, Chest pain - Critical Care Time Critical Care Time: 30-74 min - Upon my evaluation, this patient had a high probability of imminent or life-threatening deterioration due to bradycardia which required my direct attention, intervention, and personal management. I have personally provided 30 minutes of critical care time exclusive of time spent on separately billable procedures. Time includes review of laboratory data , radiology results, discussion with consultants, and monitoring for potential decompensation. Interventions were performed as documented above. Discharge ED - Sign-Out/Discharge Documenting (check all that apply): Patient Departure - Discharge Plan Condition: Stable Disposition: ADMITTED TO [facility] - Billing Disposition and Condition Condition: STABLE Disposition: Admitted to [facility] - Attestation Statements Provider Attestation: I have seen the patient with the KEITH and agree with the plan and documentation below except as noted: Briefly 63-year-old male with a history of A. fib on diltiazem and atenolol presents with marked bradycardia. EKG with A. fib in the 30s. Stable blood pressure. Plan for admit and cardiology consult. Lluvia London MD
[2019-06-24 16:06] LABS: INR 3.15 (0.82-1.09)
[2019-06-24 16:08] LABS: ABS Eosinophils 0.1 10^3/ul (0-0.6); ABS Lymphocytes 2.3 10^3/ul (1.0-4.8); ABS Monocytes 0.8 10^3/ul (0-0.8); ABS Neutrophils 4.1 10^3/ul (1.5-7.7); Eosinophil % 1.5 %; Hematocrit 43 % (42-52); Hemoglobin 14.2 g/dL (14.0-18.0); Lymphocyte % 31.5 %; Mean Corpuscular HGB Conc 33 g/dL (31-36); Mean Corpuscular Hemoglobin 30 pg (27-31); Mean Corpuscular Volume 90 fL (80-94); Mean Platelet Volume 8.1 fL (7.4-10.4); Nucleated Red Blood Cells % 0.1; Platelet Count 248 10^3/uL (150-450); Red Blood Count 4.77 10^6 /uL (4.18-5.48); Red Cell Distribution Width 16 % (10-15); White Blood Count 7.3 10^3/uL (3.5-10.8)
[2019-06-24] MEDS ORDERED: Atropine SYRINGE* 0.1 MG/ML 10 ML SYRINGE (1 MG) IV PUSH ONE (16:17)
[2019-06-24] MEDS ORDERED: Atropine SYRINGE* 0.1 MG/ML 10 ML SYRINGE (1 MG) ONE (16:19)
--- OUTSIDE RECORDS SUMMARY | 2019-06-24 16:28 | XMS REPORT | Continuity of Care Document ---
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 No Information Available Social History Type Date Description Comments Sex Unknown ETOH Use Denies alcohol use Tobacco Use Start: Unknown End: Patient is a former smoker Unknown Recreational Drug Use Denies Drug Use Smoking Status Reviewed: 04/30/19 Patient is a former smoker Exercise Type/Frequency Exercises regularly Allergies, Adverse Reactions, Alerts Active Allergies Reaction Severity Comments Date Codeine 04/11/2019 NSAIDs 04/11/2019 Medications Active Medications SIG Qnty Indications Ordering Provider Date Vitamin D 1 by mouth every 90tabs Mark Hendricks 04/12/2019 (Cholecalciferol) day MD Giovanna 25mcg (1000 Ut) Tablets Preservision Areds 2 1 by mouth two Mark SPanchito 04/12/2019 times per day MD Giovanna Areds 2 Capsules Tylenol Extra 1-2 tabs by mouth Mark Hendricks 04/12/2019 Strength every 6 hours as MD Giovanna 500mg Tablets needed Coumadin 1 tab by mouth Unknown 5mg Tablets every evening or as directed Depakote one pill daily Unknown 125mg Tablets DR Atenolol 1 by mouth every Unknown 50mg Tablets day Vitamin B12 1 by mouth every Unknown 500mcg day Tablets Immunizations Description No Information Available Vital Signs Date Vital Result Comment 04/30/2019 10:55am Height 72 inches 6'0" Weight 144.00 lb Heart Rate 72 /min Respiratory Rate 18 /min Body Temperature 97.3 F BMI (Body Mass Index) 19.5 kg/m2 04/12/2019 10:42am Height 72 inches 6'0" Weight 133.00 lb Heart Rate 68 /min BP Systolic 126 mmHg BP Diastolic 68 mmHg Respiratory Rate 16 /min Body Temperature 97.7 F BMI (Body Mass Index) 18.0 kg/m2 Results Test Date Facility Test Result H/L Range Note Inr/Protime 04/10/2019 [facility] Inr 3.07 High 0.82-1.[address] [place] [address] [phone] Standard intensity warfarin therapeutic range: 2.0-3.0 High intensity warfarin therapeutic range: 2.5-3.5 Procedures Date Code Description Status 03/26/2019 00862 Reopen Recent Laparotomy Completed 03/23/2019 93512 Colectomy W/Removal Terminal Ileum & Ileocolostomy Completed 03/23/2019 95440 Colectomy W/Removal Terminal Ileum & Ileocolostomy Completed Medical Devices Description No Information Available Encounters Type Date Location Provider Dx Diagnosis Office Visit 04/02/2019 [facility] D62 Acute posthemorrhagic 10:46a leeann Albright NP anemia Hospitalists I48.91 Unspecified atrial fibrillation F31.9 Bipolar disorder, unspecified R79.1 Abnormal coagulation profile Z48.815 Encntr for surgical aftcr following surgery on the [facility] sys Office Visit 04/01/2019 [facility] D62 Acute 10:46a leeann Albright NP posthemorrhagic Hospitalists anemia I48.91 Unspecified atrial fibrillation F31.9 Bipolar disorder, unspecified R79.1 Abnormal coagulation profile Z48.815 Encntr for surgical aftcr following surgery on the [facility] sys Office Visit 03/31/2019 [facility] Jeff R79.1 Abnormal 10:44a leeann Albright, N.P. coagulation Hospitalists profile D62 Acute posthemorrhagic anemia I48.91 Unspecified atrial fibrillation F31.9 Bipolar disorder, unspecified Z48.815 Encntr for surgical aftcr following surgery on the [facility] sys Office Visit 03/27/2019 [facility] Lynnette K91.840 Postproc hemor of a 10:44a leeann Albright M.D. dgstv sys org fol a Hospitalists dgstv sys procedure Office Visit 03/26/2019 [facility] Lynnette D62 Acute 10:44a Assleeann wood M.D. posthemorrhagic Hospitalists anemia I48.91 Unspecified atrial fibrillation F31.9 Bipolar disorder, unspecified Z48.815 Encntr for surgical aftcr following surgery on the dgstv sys Z90.49 Acquired absence of other specified parts of digestive tract Office Visit 03/25/2019 10:43a [facility] Meeta R10.31 Right lower Assocleeann, MANGLE ROLL OPERATOR quadrant pain Hospitalists I48.91 Unspecified atrial fibrillation F31.9 Bipolar disorder, unspecified Z98.84 Bariatric surgery status Office Visit 03/23/2019 7:00a Surgical Nando Perez K35.80 Unspecified acute [facility] Carolina MD appendicitis K38.8 Other specified diseases of appendix Assessments Date Code Description Provider 04/12/2019 K35.33 Acute appendicitis with perforation and Mark Heredia MD localized peritonitis, with abscess 04/02/2019 D62 Acute posthemorrhagic anemia Meeta Preston, MANGLE ROLL OPERATOR 04/02/2019 I48.91 Unspecified atrial fibrillation Meeta Preston, MANGLE ROLL OPERATOR 04/02/2019 F31.9 Bipolar disorder, unspecified Meeta Florence, MANGLE ROLL OPERATOR 04/02/2019 R79.1 Abnormal coagulation profile Meeta Johnston, MANGLE ROLL OPERATOR 04/02/2019 Z48.815 Encounter for surgical aftercare following Meeta Preston, MANGLE ROLL OPERATOR surgery on the digestive system 04/01/2019 D62 Acute posthemorrhagic anemia Meeta Preston, MANGLE ROLL OPERATOR 04/01/2019 I48.91 Unspecified atrial fibrillation Meeta Florence, MANGLE ROLL OPERATOR 04/01/2019 F31.9 Bipolar disorder, unspecified Metea Preston, MANGLE ROLL OPERATOR 04/01/2019 R79.1 Abnormal coagulation profile Meeta Florence, MANGLE ROLL OPERATOR 04/01/2019 Z48.815 Encounter for surgical aftercare following Meeat Johnston, MANGLE ROLL OPERATOR surgery on the digestive system 03/31/2019 R79.1 Abnormal coagulation profile Jeff Beck, N.P. 03/31/2019 D62 Acute posthemorrhagic anemia Jeff Beck, N.P. 03/31/2019 I48.91 Unspecified atrial fibrillation Jeff Beck, N.P. 03/31/2019 F31.9 Bipolar disorder, unspecified Jefflani Beck, N.P. 03/31/2019 Z48.815 Encounter for surgical aftercare following Jeff Beck, N.P. surgery on the digestive system 03/27/2019 K91.840 Postprocedural hemorrhage of a digestive Lynnette Morales M.D. system organ or structure following a digestive system procedure 03/26/2019 D62 Acute posthemorrhagic anemia Lynnette Morales M.D. 03/26/2019 K91.840 Postprocedural hemorrhage of a digestive Mark Heredia MD system organ or structure following a digestive system procedure 03/26/2019 I48.91 Unspecified atrial fibrillation Lynnette Morales M.D. 03/26/2019 F31.9 Bipolar disorder, unspecified Lynnette Morales M.D. 03/26/2019 Z48.815 Encounter for surgical aftercare following Lynnette Morales M.D. surgery on the digestive system 03/26/2019 Z90.49 Acquired absence of other specified parts of Lynnette Morales M.D. digestive tract 03/25/2019 R10.31 Right lower quadrant pain Meeta Johnston, MANGLE ROLL OPERATOR 03/25/2019 I48.91 Unspecified atrial fibrillation Meeta Johnston, MANGLE ROLL OPERATOR 03/25/2019 F31.9 Bipolar disorder, unspecified Meeta Johnston, MANGLE ROLL OPERATOR 03/25/2019 Z98.84 Bariatric surgery status Meeta Johnston, MANGLE ROLL OPERATOR 03/23/2019 K35.33 Acute appendicitis with perforation and Mark Heredia MD localized peritonitis, with abscess 03/23/2019 K35.33 Acute appendicitis with perforation and Nando Carolina MD localized peritonitis, with abscess 03/23/2019 K38.8 Other specified diseases of appendix Mark Heredia MD 03/23/2019 K35.80 Unspecified acute appendicitis Nando Carolina MD 03/23/2019 Z53.31 Laparoscopic surgical procedure converted to Mark Heredia MD open procedure 03/23/2019 K38.8 Other specified diseases of appendix Nando Carolina MD 03/23/2019 K38.8 Other specified diseases of appendix Nando Carolina MD 03/23/2019 Z53.31 Laparoscopic surgical procedure converted to Nando Carolina MD open procedure Plan of Treatment No Information Available Functional Status Description No Information Available Mental Status Description No Information Available Referrals Description No Information Available
[2019-06-24 16:30] LABS: ALT 31 U/L (7-52); Albumin 3.8 g/dL (3.2-5.2); Albumin/Globulin Ratio 1.5 (1-3); Alkaline Phosphatase 90 U/L (34-104); BUN/Creatinine Ratio 23.7 (8-20); Blood Urea Nitrogen 23 mg/dL (6-24); CO2 Carbon Dioxide 29 mmol/L (22-32); Calcium 8.8 mg/dL (8.6-10.3); Chloride 106 mmol/L (101-111); EGFR African American 95.2 (>60); EGFR Non-African American 78.7 (>60); Globulin 2.6 g/dL (2-4); Glucose 112 mg/dL (70-100); Sodium 140 mmol/L (135-145); Total Protein 6.4 g/dL (6.4-8.9)
[2019-06-24] MEDS ORDERED: Acetaminophen TAB* 325 MG PO PRN (16:42)
[2019-06-24] MEDS ORDERED: Morphine INJ* 2 MG/ML 1 ML SYRINGE (TWO MG - NEW SYRINGE VERSION) IV PRN (16:42)
[2019-06-24] MEDS ORDERED: Al Hydrox/Mg Hydrox/Simet LIQ* 30 ML UDC PO PRN (16:42)
[2019-06-24 16:53] LABS: Anion Gap 5 mmol/L (2-11)
--- NOTE | 2019-06-24 17:23 | CONSULT ---
Subjective Date of Service: 06/24/19 Interval History: Date of admission and consult: 06/24/2019 No local PCP or brand sales manager CC: Dyspnea, lightheadedness, atypical chest pain Reason for consult: Slow afib HPI Mr. Yu is a 63-year-old man with a history as below. He is visiting his mother, from [place]. Was admitted 03/23 - 04/03/2019 also while visiting mother had perforated appendicitis and had surgery. Had issues with pain management and prior substance abuse was noted. Was eventually discharged. Was driving today when felt symptoms of shortness of breath, lightheadedness. He later complained of left costal pain lasting several seconds at a time not clearly pleuritic or reproducible and not typical for angina.. He was found with marked bradycardia. He denies any recent medication changes. Pmhx: Long standing atrial fibrillation since 1985 on coumadin and rate controlled Bipolar d/o COPD PAST SURGICAL HISTORY: 1. UVVP. 2. Gastric bypass Cb-en-Y. 3. Right rotator cuff surgery. 4. Hernia repair. HOME MEDICATIONS: Include: 1. Zyrtec 10 mg p.o. daily. 2. Atenolol 100 mg p.o. b.i.d. 3. ProAir 100 mcg inhaled 4 times a day as needed. 4. Acetaminophen 325 mg p.o. q.6 hours as needed. 5. Depakote 250 mg p.o. daily. 6. Vitamin D 1000 units p.o. daily. 7. Viagra 100 mg p.o. daily p.r.n. 8. Seroquel 150 mg p.o. at bedtime. 9. Omeprazole 20 mg p.o. daily. 10. Narcan nasal spray daily p.r.n. 11. Multivitamin with minerals 1 tab p.o. daily. 12. Lamictal 100 mg p.o. b.i.d. 13. Diltiazem 240 mg p.o. daily. 14. Wellbutrin 200 mg p.o. b.i.d. 15. Coumadin 10 mg p.o. daily. 16. Valacyclovir 100 mg p.o. daily. ALLERGIES: To CODEINE and NSAIDs. FAMILY HISTORY: Father with a history of stroke and atrial fibrillation. No reported history of diabetes. Grandfather with leukemia. SOCIAL HISTORY: Prior tobacco use ~ 10 pack years No alcohol Regular cannabis, no other drugs currently Surrogate decision maker in the event he is unable to make his own decisions is his mother. Medications Active Medications: Acetaminophen (Tylenol Tab*) 650 mg PO Q4H PRN PRN Reason: PAIN-MILD/TEMP >/= 100.4 Al Hydrox/Mg Hydrox/Simethicone (Maalox Plus*) 30 ml PO Q6H PRN PRN Reason: INDIGESTION Morphine Sulfate (Morphine Inj (Syringe))*) 1 mg IV Q4H PRN PRN Reason: PAIN - MILD Home Medications: Acetaminophen 325 mg PO Q6HR PRN #30 marco a 07/08/17 [Rx Confirmed 06/24/19] Albuterol inh POWDER (NF) [Proair Respiclick] 108 mcg IN .Q4-6H PRN 07/08/17 [ History Confirmed 06/24/19] Cetirizine* [ZyrTEC 10 MG TAB*] 10 mg PO DAILY 07/08/17 [History Confirmed 06/24] Cholecalciferol (Vitamin D3) [Vitamin D3] 1,000 unit PO DAILY 07/08/17 [History Confirmed 06/24/19] Divalproex ER TAB(*) [Depakote ER TAB(*)] 250 mg PO DAILY 07/08/17 [History Confirmed 06/24/19] Naloxone Nasal Clarissa* [Narcan Nasal Clarissa] 4 mg NASAL DAILY PRN 07/08/17 [ History Confirmed 06/24/19] Omeprazole CAP (NF) [Prilosec CAP* 20 MG] 20 mg PO DAILY 07/08/17 [History Confirmed 06/24/19] QUEtiapine TAB* [Seroquel 100 MG *] 150 mg PO BEDTIME 07/08/17 [History Confirmed 06/24/19] Sildenafil Citrate [Viagra] 100 mg PO DAILY PRN 07/08/17 [History Confirmed ] ValACYclovir (*) [Valtrex 500 mg (*)] 500 mg PO DAILY 07/08/17 [History Confirmed 06/24/19] Warfarin TAB(*) [Coumadin TAB(*)] 10 mg PO DAILY 07/08/17 [History Confirmed ] buPROPion SR TAB* [Wellbutrin SR TAB*] 100 mg PO BID 07/08/17 [History Confirmed 06/24/19] dilTIAZem HCl [Diltiazem 24Hr ER (LA)] 240 mg PO DAILY 07/08/17 [History Confirmed 06/24/19] Ondansetron ODT TAB* [Zofran 4 MG Odt TAB*] 4 mg PO Q6H PRN #12 tab.odt MDD 4 [Rx Confirmed 06/24/19] oxyCODONE TAB* [Roxycodone TAB 5 mg*] 5 mg PO Q8H PRN #23 tab MDD 3 04/03/19 [ Rx Confirmed 06/24/19] Albuterol inh POWDER (NF) [Proair Respiclick] 1 puff INH Q6HR PRN 06/24/19 [ History Confirmed 06/24/19] Ascorbic Acid TAB* [Vitamin C TAB*] 500 mg PO DAILY 06/24/19 [History Confirmed 06/24/19] Atenolol TAB* [Tenormin TAB* 50 MG] 100 mg PO DAILY 06/24/19 [History Confirmed 06/24/19] Cholecalciferol TAB* [Vitamin D TAB*] 1,000 unit PO DAILY 06/24/19 [History Confirmed 06/24/19] Cyanocobalamin (Vitamin B-12) [Vitamin B-12] 500 mcg SL DAILY 06/24/19 [History Confirmed 06/24/19] Ferrous Sulfate TAB* 325 mg PO DAILY 06/24/19 [History Confirmed 06/24/19] Multivitamins/Minerals TAB* [Theragran/minerals TAB*] 1 tab PO DAILY 06/24/19 [ History Confirmed 06/24/19] lamoTRIgine TAB(*) [LaMICtal TAB(*)] 100 mg PO QAM 06/24/19 [History Confirmed 06/24/19] lamoTRIgine TAB(*) [LaMICtal TAB(*)] 150 mg PO QPM 06/24/19 [History Confirmed 06/24/19] Review of Systems - Measurements Intake and Output: Intake and Output Last 24 Hours 06/22/19 06/23/19 06/24/19 06/25/19 06:59 06:59 06:59 06:59 Weight 160 lb - Review of Systems Constitutional Symptoms: Negative: Weight Gain, Weight Loss, Weakness, Fatigue, Fever, Night Sweats, Unexplained Falls, Other Dermatology: Negative: Rash, Skin Lesions HEENT: Negative: Change in Hearing, Vertigo Eyes: Negative: Change in Vision, Double Vision Thyroid: Negative: Cold Intolerance, Heat Intolerance, Palpitations, Weight Gain Pulmonary: Negative: Cough, Sputum, Hemoptysis, Wheezing, Respiratory Distress Cardiology: Negative: Swelling of Ankles, Peripheral Vascular Dis, Edema, Syncope, Paroxysmal Nocturnal Dyspnea, Orthopnea Gastroenterology: Negative: Blood in Stools, Haematemesis, Melena Genital - Urinary: Negative: Dysuria, Hematuria, Nocturia Musculoskeletal: Negative: Joint Pain, Joint Stiffness Endocrinology: Negative: Obesity, Diabetes, Polydipsia, Polyuria Hematologic/Lymphatic: Positive: Use of Anticoagulant Negative: Hx Leukemia, Hx Lymphoma, Use of Antiplatelet Drugs Neurology: Negative: Change in Speech, Hx of Stroke\TIA, Hx Seizures Psychiatry: Negative: Unusual Anxiety, Suicidal Ideation Allergic/Immunologic: Negative: Hx Environmental Allergies, Hx HIV, Immunocompromise Review of Systems Statement: All other review of systems negative, unless stated above. Objective Vital Signs: Temp Pulse Resp BP Pulse Ox 96.7 F 40 15 126/79 95 06/24/19 15:40 06/24/19 17:10 06/24/19 17:00 06/24/19 16:46 06/24/19 17:00 Appearance: nad, pleasant Ears/Nose/Mouth/Throat: Clear Oropharnyx, Mucous Membranes Moist Neck: NL Appearance and Movements; NL JVP, Trachea Midline Respiratory: Symmetrical Chest Expansion and Respiratory Effort, Clear to Auscultation Cardiovascular: - - irregularly irregular, no significant murmur Abdominal: NL Sounds; No Tenderness; No Distention Extremities: No Edema Skin: No Rash or Ulcers Neurological: Alert and Oriented x 3 Laboratory Results: 06/24/19 15:42 06/24/19 15:42 INR (Anticoag Therapy) 3.15 (0.82-1.09) H 06/24/19 15:42 Total Bilirubin 0.20 mg/dL (0.2-1.0) 06/24/19 15:42 AST TNP 06/24/19 15:42 ALT 31 U/L (7-52) 06/24/19 15:42 Alkaline Phosphatase 90 U/L (34-104) 06/24/19 15:42 Total Protein 6.4 g/dL (6.4-8.9) 06/24/19 15:42 Albumin 3.8 g/dL (3.2-5.2) 06/24/19 15:42 Globulin 2.6 g/dL (2-4) 06/24/19 15:42 Albumin/Globulin Ratio 1.5 (1-3) 06/24/19 15:42 TSH 2.13 mcIU/mL (0.34-5.60) 06/24/19 15:41 inr 3.15 06/24/19 15:42 Troponin I 0.00 Diagnostic Imaging: T Exam Date: 06/24/19 CHEST PA & LAT 2 VWS Indication: Shortness of breath, chest pain. 2 views of the chest including dual energy PA views demonstrate no mediastinal shift. Heart is of normal size and configuration. Lung anguiano are clear. Healed rib fractures are noted on the right. IMPRESSION: No active cardiopulmonary disease is noted. EKG Data: ekg on admission slow afib 35 bpm, probable junctional escape, no ischemic changes qrs complexes similar to ekg showing afib 64 bpm 03/04/2019 Assessment/Plan Mr. Yu is a 63 year old man with possible symptomatic bradycardia in setting of relatively higher doses of BB and CCB. Unlikely PE given therapeutic INR. Symptoms not typical for angina. - Ok to admit to [address] [place] [address] telemetry unitally - Rule out for ACS with serial troponins - Check echocardiogram (ordered) - Hold rate control medications and can restart at lower dose once heart rate improved. - Once heart rate more normal and pending above, patient can be discharged from a cardiac standponit
[2019-06-24 17:41] LABS: Potassium Redraw 4.8 mmol/L (3.5-5.0)
[2019-06-24] MEDS ORDERED: Senna TAB 8.6 mg* TAB PO PRN (17:56)
[2019-06-24] MEDS ORDERED: Ondansetron INJ* 2 MG/ML VIAL IV PRN (17:57)
[2019-06-24] MEDS ORDERED: Albuterol HFA INHALER* 8 gm MDI INH PRN (18:04)
[2019-06-24 18:23] LABS: HIV 4th Generation Nonreactive (Nonreactive)
[2019-06-24] MEDS ORDERED: Cyanocobalamin TAB* 500 MCG PO SCH (21:00)
[2019-06-24] MEDS ORDERED: QUEtiapine TAB* 100 MG PO SCH (21:00)
[2019-06-24] MEDS ORDERED: Ferrous Sulfate TAB* 325 MG PO SCH (21:00)
[2019-06-24] MEDS ORDERED: Divalproex ER TAB(*) 250 MG PO SCH (21:00)
[2019-06-24] MEDS ORDERED: Pantoprazole TAB * 40 MG TAB PO SCH (21:00)
[2019-06-24] MEDS ORDERED: ValACYclovir (*) 500 MG TAB PO SCH (21:00)
[2019-06-24] MEDS ORDERED: Cholecalciferol TAB* 1000 UNITS PO SCH (21:00)
[2019-06-24] MEDS ORDERED: lamoTRIgine TAB(*) 100 MG PO SCH (21:00)
[2019-06-24] MEDS ORDERED: Cetirizine* 10 MG TAB PO SCH (21:00)
[2019-06-24] MEDS: buPROPion SR TAB.SR* 100 MG PO SCH (21:00)
--- NOTE | 2019-06-24 21:56 | HP ---
HISTORY AND PHYSICAL: DATE OF ADMISSION: 06/24/19 PROVIDER: GERI Dent PRIMARY CARE PROVIDER: Dr. Christian Carter in [place]. ATTENDING PHYSICIAN WHILE IN HOSPITAL: Dr. Merline Moore* (dictated by GERI Dent). CHIEF COMPLAINT: Left-sided chest pain and shortness of breath. HISTORY AND PHYSICAL: Favian Yu is a 63-year-old white male with past medical history significant for atrial fibrillation, on Coumadin; bipolar disorder and COPD, who presented to the emergency department today via private vehicle due to shortness of breath at rest and left-sided chest pain. The patient is from [place], but owns a camper and has been living in [place] most recently. He visits his mother who lives at [facility] in [place]. He was visiting with her today and he was sitting and reading when he started to feel short of breath at rest. This did persist and later he was feeling some chest pressure within several hours he was driving his car and started to feel an onset of left-sided chest pain, which has been intermittent since this onset and he was feeling very faint, radiation down his left arm of this pain. At this time, since he has been at the hospital, he does not have persistent left chest pain, but he does feel still short of breath. He then drove himself to the hospital after feeling this while driving and when he get out of the car was feeling lightheaded. Since he has been in the emergency department, his lightheadedness has improved. The patient takes his diltiazem and atenolol in the evening and his last dose was therefore yesterday before bedtime and he has confirmed this with his pharmacy. The patient denies palpitations, chest pain radiating to neck or jaw, abdominal pain, nausea, vomiting, constipation, diarrhea, urinary problems, changes in vision. EMERGENCY DEPARTMENT COURSE: While in the emergency room, the patient's vital signs upon arrival were temperature 96.7 degrees Fahrenheit, pulse of 35, respiratory rate 18, oxygen saturation 98, blood pressure 139/68, his heart rate did go down to 32 on telemetry and atropine 0.5 mg was given. His heart rate did go up into the 40s; however, while I was allowing, the patient's heart rate was mostly in the high 30s, between 35 and 38 beats per minute. The hospitalists were then asked to evaluate the patient for admission. PAST MEDICAL HISTORY: 1. Atrial fibrillation, on Coumadin. 2. Bipolar disorder. 3. COPD. 4. GERD. PAST SURGICAL HISTORY: 1. Recent suppurative appendicitis, status post right-sided colectomy with appendectomy. 2. UVVP. 3. Gastric bypass Cb-[id number]. 4. Right rotator cuff surgery. 5. Hernia repair. MEDICATIONS: 1. Ferrous sulfate 325 mg p.o. daily. 2. Albuterol inhaler 1 puff inhaled q.6 hours p.r.n. shortness of breath/ wheezing. 3. Vitamin B12 500 mg sublingual daily. 4. Ascorbic acid 500 mg p.o. daily. 5. Wellbutrin 100 mg p.o. b.i.d. 6. Atenolol 100 mg p.o. daily. 7. Lamictal 100 mg p.o. q.a.m., 150 mg p.o. q.p.m. 8. Diltiazem 240 mg p.o. daily. 9. Coumadin 10 mg p.o. daily. 10. Valtrex 500 mg p.o. daily. 11. Viagra 100 mg p.o. daily p.r.n. erectile dysfunction. 12. Seroquel 150 mg p.o. bedtime. 13. Zofran 4 mg p.o. q.6 hours p.r.n. nausea and vomiting. 14. Omeprazole 20 mg p.o. daily. 15. Depakote 250 mg p.o. daily. 16. Vitamin D3 1000 units p.o. daily. 17. Cetirizine 10 mg p.o. daily. 18. Tylenol 325 mg p.o. q.6 hours p.r.n. pain. 19. Multivitamin 1 tab p.o. daily. ALLERGIES: Rash to CODEINE. FAMILY HISTORY: Father with history of stroke and AFib. Mother is living at the age of 86 and is overall healthy. No family history of [place]. SOCIAL HISTORY: As previously mentioned, the patient is from [place], but has been living in [place] more recently and is currently visiting his mother in [place]. He lives alone. He is . He has 1 adult child. 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 He had a 7-year history of smoking approximately 1 pack per day and quit 2 years ago. He denies drinking. He smokes marijuana occasionally approximately once per month. His surrogate medical decision maker should he need one is his mother, her name is Jeaneth Choudhury, her phone number is [phone]. REVIEW OF SYSTEMS: An 11-point review of systems was completed and all pertinent positives and negatives are above in the HPI. All other systems are negative. PHYSICAL EXAMINATION GENERAL: Well-developed, well-nourished white male, lying upright in hospital bed, appearing comfortable, in no acute distress. HEENT: Eyes: PERRL. Sclerae anicteric. ENT: Mucous membranes are moist. LUNGS: Clear to auscultation throughout. CARDIO: Bradycardic. Rate appears regular though difficult to discern due to bradycardic rate. No appreciable murmurs, rubs or gallops. ABDOMEN: Normoactive bowel sounds x4 quadrants. Abdomen is soft, nontender, nondistended. EXTREMITIES: No clubbing, cyanosis or edema. SKIN: Warm, dry, and intact. NEUROLOGIC: The patient is alert and oriented x3. No focal deficits, able to move all extremities. DIAGNOSTIC STUDIES/LAB DATA: Chest x-ray: No active cardiopulmonary disease is noted. EKG rate is 35 beats per minute. There is atrial flutter at irregular ratios of P waves between Q waves. There appears to be some T wave flattening; however, this is consistent with prior EKG in March 2019. No ST depressions or elevations. White blood cell count 7.3, hemoglobin 14.2, hematocrit 43, platelets 248. Sodium 140, potassium 4.8, chloride 106, carbon dioxide 29, anion gap 5, BUN 23 , creatinine 0.97, glucose 112, calcium 8.8, magnesium 2.0. LFTs are unremarkable. Troponin 0.0, TSH 2.13. INR 3.15. ASSESSMENT AND PLAN: Favian Yu is a 63-year-old white male with past medical history significant for atrial fibrillation, on Coumadin; chronic obstructive pulmonary disease and bipolar disorder, who presents to the emergency department due to left-sided chest pain and shortness of breath. The patient was found to be bradycardic. The patient will be admitted to [facility] for: 1. Bradycardia. The patient is presenting in atrial flutter with bradycardia. He has already been evaluated by charging machine operator by Dr. Octavio Hughes. Dr. Hughes is recommending holding his diltiazem and atenolol, and continue monitoring him while these leave his system. As previously mentioned, his last dose was yesterday evening. I have ordered for his transcutaneous pacer pads to remain on his chest. On admitting him to the ICU due to the bradycardia, I discussed this with the cleaner housekeeping , who believes this would be better placement for the patient based on nursing staff. Transthoracic echocardiogram is pending. His electrolytes within normal limits. Potassium should remain over 4, magnesium should remain over 2. He has already received atropine and no further atropine is needed at this time. 2. Chest pain. The patient has left-sided chest pain, which has been intermittent and associated with dyspnea. It is quite possible that the dyspnea is related to his bradycardia; however, we will rule him out for ACS. His initial troponin is 0. Repeat additional troponins are pending. No ischemic changes on EKG thus far and we will repeat EKG with his next troponins. 3. Supratherapeutic INR. The patient has a minimally supratherapeutic INR at 3.15. I will hold his Coumadin for today and I will check his INR for tomorrow. He and I did discuss that DOACs would likely be of great benefit to him and he is considering this. This should be discussed further tomorrow. 4. Bipolar disorder. I will continue the patient's home Lamictal and Depakote as mood stabilizers. Continue his home Wellbutrin and his home Seroquel at night. 5. Chronic obstructive pulmonary disease. I will continue his p.r.n. albuterol inhaler. 6. Gastroesophageal reflux disease. Continue the patient's omeprazole. 7. FEN: Electrolytes do not need to be repleted. I do not believe that the patient needs any fluid resuscitation at this time. The patient may have a regular unrestricted diet. 8. Code status: The patient is full code. 9. DVT prophylaxis: The patient has a DVT risk score of 2, but he is fully anticoagulated with Coumadin and no further chemoprophylaxis as needed. TIME SPENT: Approximately 50 minutes was spent on this admission, half this time has been spent at the bedside evaluating the patient and discussing the plan of care. This case has been reviewed by my attending, Dr. Merline Moore, and she agrees with this plan of care. GERI DENT [id number]/[facility] #: [id number] [facility]
[2019-06-25] MEDS ORDERED: QUEtiapine TAB* 100 MG PO SCH
[2019-06-25 05:24] LABS: ABS Basophils 0.1 10^3/ul (0-0.2); ABS Eosinophils 0.1 10^3/ul (0-0.6); ABS Lymphocytes 1.6 10^3/ul (1.0-4.8); ABS Monocytes 0.6 10^3/ul (0-0.8); ABS Neutrophils 5.3 10^3/ul (1.5-7.7); Eosinophil % 1.2 %; Hematocrit 37 % (42-52); Hemoglobin 12.6 g/dL (14.0-18.0); Lymphocyte % 20.7 %; Mean Corpuscular HGB Conc 34 g/dL (31-36); Mean Corpuscular Hemoglobin 30 pg (27-31); Mean Corpuscular Volume 90 fL (80-94); Mean Platelet Volume 7.8 fL (7.4-10.4); Platelet Count 176 10^3/uL (150-450); Red Blood Count 4.15 10^6 /uL (4.18-5.48); Red Cell Distribution Width 15 % (10-15); White Blood Count 7.7 10^3/uL (3.5-10.8)
[2019-06-25 05:42] LABS: INR 4.14 (0.82-1.09)
[2019-06-25 05:44] LABS: Blood Urea Nitrogen 26 mg/dL (6-24); CO2 Carbon Dioxide 26 mmol/L (22-32); Calcium 7.8 mg/dL (8.6-10.3); Chloride 109 mmol/L (101-111); EGFR African American 112.4 (>60); EGFR Non-African American 92.9 (>60); Glucose 92 mg/dL (70-100); Magnesium 1.8 mg/dL (1.9-2.7); Sodium 139 mmol/L (135-145)
[2019-06-25 05:50] LABS: Anion Gap 4 mmol/L (2-11)
--- NOTE | 2019-06-25 08:16 | PN ---
Subjective Date of Service: 06/25/19 Interval History: Admitted yesterday for bradycardia, possibly symptomatic. No acute events overnight in the ICU, and now HR is in normal range. Pt reports feeling better - no recurrence of SOB, chest pain. Does still feel somewhat weak and thirsty. Has not ambulated yet. Denies fevers, chills. May have myalgias in legs. Cardiology recommending flu swab, re-initiation of atenolol but at 25mg daily, followed by ambulation. If patient does well with ambulation, he may be discharged. Objective Active Medications: Acetaminophen (Tylenol Tab*) 650 mg PO Q4H PRN PRN Reason: PAIN-MILD/TEMP >/= 100.4 Al Hydrox/Mg Hydrox/Simethicone (Maalox Plus*) 30 ml PO Q6H PRN PRN Reason: INDIGESTION Albuterol (Ventolin Hfa Inhaler*) 1 puff INH Q6HR PRN PRN Reason: SOB/WHEEZING Bupropion HCl (Wellbutrin Sr Tab*) 100 mg PO BID [facility] Last Admin: 06/24/19 21:00 Dose: 100 mg Cetirizine HCl (Zyrtec*) 10 mg PO BEDTIME [facility] Last Admin: 06/24/19 21:43 Dose: 10 mg Cholecalciferol (Vitamin D Tab*) 1,000 units PO BEDTIME [facility] Last Admin: 06/24/19 21:43 Dose: 1,000 units Cyanocobalamin (Vitamin B12 Tab*) 500 mcg PO BEDTIME [facility] Last Admin: 06/24/19 21:43 Dose: 500 mcg Divalproex Sodium (Depakote Er Tab(*)) 250 mg PO BEDTIME [facility] Last Admin: 06/24/19 21:43 Dose: 250 mg Ferrous Sulfate (Ferrous Sulfate Tab*) 325 mg PO BEDTIME [facility] Last Admin: 06/24/19 21:43 Dose: 325 mg Lamotrigine (Lamictal Tab(*)) 100 mg PO QAM [facility] Lamotrigine (Lamictal Tab(*)) 150 mg PO BEDTIME [facility] Last Admin: 06/24/19 21:44 Dose: 150 mg Morphine Sulfate (Morphine Inj (Syringe))*) 1 mg IV Q4H PRN PRN Reason: PAIN - MILD Multivitamins/Minerals (Theragran/Minerals Tab*) 1 tab PO DAILY [facility] Ondansetron HCl (Zofran Inj*) 4 mg IV Q4H PRN PRN Reason: NAUSEA/VOMITING Pantoprazole Sodium (Protonix Tab*) 40 mg PO BEDTIME [facility] Last Admin: 06/24/19 21:45 Dose: 40 mg Pneumococcal Polyvalent Vaccine (Pneumococcal Vac 23-Polyvalent*) 0.5 ml IM .ONCE ONE Stop: 06/25/19 09:01 Quetiapine Fumarate (Seroquel Tab*) 150 mg PO 0000 [facility] Last Admin: 06/25/19 02:36 Dose: 150 mg Senna (Senokot 8.6 Mg Tab*) 1 tab PO DAILY PRN PRN Reason: CONSTIPATION Valacyclovir HCl (Valtrex 500 Mg (*)) 500 mg PO BEDTIME [facility]; Protocol Last Admin: 06/24/19 21:42 Dose: 500 mg Vital Signs - 8 hr 06/25/19 06/25/19 06/25/19 01:00 01:01 02:00 Temperature Pulse Rate 58 58 60 Respiratory 19 21 22 Rate Blood Pressure 107/69 (mmHg) O2 Sat by Pulse 96 99 97 Oximetry 06/25/19 06/25/19 06/25/19 02:01 03:00 03:45 Temperature 99.3 F Pulse Rate 67 70 Respiratory 25 15 Rate Blood Pressure 109/82 116/67 (mmHg) O2 Sat by Pulse 98 98 Oximetry 06/25/19 06/25/19 06/25/19 04:00 04:02 05:00 Temperature Pulse Rate 61 63 Respiratory 21 21 20 Rate Blood Pressure 109/63 90/59 (mmHg) O2 Sat by Pulse 96 95 Oximetry 06/25/19 06/25/19 06/25/19 05:13 06:00 07:00 Temperature Pulse Rate 61 69 68 Respiratory 12 15 12 Rate Blood Pressure 89/62 102/67 86/56 (mmHg) O2 Sat by Pulse 97 97 93 Oximetry Oxygen Devices in Use Now: None Appearance: well appearing man in NAD, alert and interactive, pleasant Eyes: No Scleral Icterus Ears/Nose/Mouth/Throat: Clear Oropharnyx - dry mm Neck: NL Appearance and Movements; NL JVP, Trachea Midline Respiratory: Symmetrical Chest Expansion and Respiratory Effort, Clear to Auscultation Cardiovascular: NL Sounds; No Murmurs; No JVD, RRR Abdominal: NL Sounds; No Tenderness; No Distention, No Hepatosplenomegaly Extremities: No Edema Skin: No Rash or Ulcers Neurological: Alert and Oriented x 3 Result Diagrams: 06/25/19 05:10 06/25/19 05:58 Microbiology and Other Data: Microbiology 06/24/19 18:26 Nasal Screen MRSA (PCR) - Final Nasal Mrsa Not Detected Assess/Plan/Problems-Billing Assessment: 63M with afib on warfarin, COPD, bipolar disorder, who presents after brief episode of L-sided chest pain and dyspnea, found with bradycardia. - Patient Problems (1) Bradycardia Comment: while on diltiazem and atenolol. Resolved after holding these meds. - appreciate cardiology recs - will restart atenolol 25mg daily (decreased from 50mg bid) and continue to hold dilt - monitor vitals and ambulate patient (2) Atrial fibrillation Comment: Rate is controlled. - restart atenolol at 25% of home dose, as above - cont to hold diltiazem given bradycardia on admission, and low-normal BPs overnight - continue coumadin by INR (3) Bipolar disorder Comment: - Continue Bupropion, Divalproex, Lamotrigine, and Quetiapine. (4) DVT prophylaxis Comment: cont warfarin (5) Full code status Current Visit: No Status: Acute Priority: High Code(s): Z78.9 - OTHER SPECIFIED HEALTH STATUS SNOMED Code(s): 919302228
[2019-06-25] MEDS: buPROPion SR TAB.SR* 100 MG PO SCH (08:40)
[2019-06-25] MEDS ORDERED: Pneumococcal *Vac Polyvalent 0.5 ML VIAL IM ONE (09:00)
[2019-06-25] MEDS ORDERED: lamoTRIgine TAB(*) 100 MG PO SCH (09:00)
[2019-06-25] MEDS ORDERED: Multivitamins/Minerals TAB PO SCH (09:00)
--- NOTE | 2019-06-25 09:51 | ECHO ---
*[facility]* [place] [address] Fax #: [phone] Transthoracic Echocardiogram Patient: Favian Yu : 1955 Study Date: 06/25/2019 Age: 63 Gender: M HR: 61 bpm Height: 72 in /182.9 cm BSA: 1.92 m^2 Weight: 159.7 lb /72.6 kg BMI: 21.7 kg/m^2 *Child Care Teacher: * Jannette Soto [facility] *Referring Physician: * Octavio Hughes MD *Reading Physician: * Finn Yancey MD Indications: Abnormal EKG. History: Chest pain. Dyspnea. Atrial fibrillation. Chronic obstructive pulmonary disease. Conclusions Summary: - Left ventricle: The cavity size is normal. Wall thickness is mildly increased. Systolic function is normal. The estimated ejection fraction is 55-60%. - Right ventricle: Systolic function is low normal. - Left atrium: The atrium is severely dilated. - Right atrium: The atrium is severely dilated. - Mitral valve: There is trace regurgitation. - Tricuspid valve: There is trace regurgitation. - Pulmonary arteries: Systolic pressure is within the normal range. - Inferior vena cava: The vessel is dilated. There is (>= 50%) respiratory change in the IVC dimension. Study data: Transthoracic echocardiogram. Procedure: Transthoracic echocardiography was performed. Image quality was good. Complete 2D, spectral Doppler, and color flow Doppler. Location: ICU Patient status: Inpatient. Patient room number: 5. No prior study is available for comparison. Rhythm: Atrial fibrillation. Findings Left ventricle: The cavity size is normal. Wall thickness is mildly increased. Systolic function is normal. The estimated ejection fraction is 55-60%. Wall motion is normal; there are no regional wall motion abnormalities. Left ventricular diastolic function parameters are indeterminate. Right ventricle: The cavity size is normal. Systolic function is low normal. Left atrium: The atrium is severely dilated. Right atrium: The atrium is severely dilated. Mitral valve: The Mitral valve annulus appears calcified. The leaflets are mildly thickened. There is no evidence of stenosis. There is trace regurgitation. Aortic valve: The valve is trileaflet. The leaflets are normal thickness. There is no evidence of stenosis. There is trace regurgitation. Tricuspid valve: The leaflets are normal thickness. There is no evidence of stenosis. There is trace regurgitation. Pulmonic valve: The leaflets are normal thickness. There is no evidence of stenosis. There is no significant regurgitation. Aorta: The aortic root appears normal. Pericardium: There is no significant pericardial effusion. Pulmonary arteries: Not well visualized. Systolic pressure is within the normal range. Systemic veins: Inferior vena cava: The vessel is dilated. There is (>= 50%) respiratory change in the IVC dimension. Measurements Left ventricle Value Ref Aortic valve Value Ref SCARLETT, LAX 4.3 cm 4.2 - 5.8 [place] diam, ED 2.3 cm ----- ESD, LAX 3.1 cm 2.5 - 4.0 [place] diam/bsa, ED 1.2 cm/m^2 ----- FS, LAX 28 % 25 - 43 Peak v, S 0.91 m/sec ----- PW, ED, LAX (H) 1.1 cm 0.6 - 1.0 Peak grad, S 3.3 mm Hg ----- E', lat milton, TDI 18.2 cm/sec >=10.0 E/e', lat milton, 4 Mitral valve Value Ref TDI Peak E 0.76 m/sec ----- Peak A 0.02 m/sec ----- LVOT Value Ref Decel time 158 ms ----- Peak kiki, S 0.64 m/sec Peak grad, D 2.3 mm Hg ----- Peak grad, S 2 mm Hg Peak E/A ratio 32.85 ----- Ventricular septum Value Ref Pulmonic valve Value Ref IVS, ED (H) 1.1 cm 0.6 - 1.0 Peak v, S 0.52 m/sec ----- Peak grad, S 1.1 mm Hg ----- Right ventricle Value Ref AW thickness, ED 0.5 cm 0.1 - 0.5 Tricuspid valve Value Ref SCARLETT, LAX 3.5 cm Peak grad, D 19.0 mm Hg ----- SCARLETT major ax, A4C (L) 3.0 cm 5.9 - 8.3 TR peak v 2.2 m/sec <=2.8 Pressure, S 27 mm Hg Aortic root Value Ref Left atrium Value Ref Root diam 3.2 cm <4.1 AP dim, ES (H) 5.00 cm 3.00 - 4.00 Ascending aorta Value Ref ML dim, A4C 5.3 cm AAo AP diam, S 3.1 cm ----- SI dim, A4C 6.7 cm Vol/bsa, ES, 2-p (H) 61 ml/m^2 16 - 34 Pulmonary artery Value Ref Pressure, S 25.9 mm Hg ----- Right atrium Value Ref SI dim, ES (H) 7.1 cm 3.4 - 5.3 Inferior vena cava Value Ref ML dim, ES, A4C (H) 5.4 cm 2.6 - 4.4 Diam 2.5 cm ----- Estimated RAP 8 mm Hg Legend: (L) and (H) gabriella values outside specified reference range. Prepared and electronically signed by Finn Yancey MD 06/25/2019 09:50
[2019-06-25] MEDS ORDERED: NS 0.9% 1000 ML** 1,000 ML IV ONE (11:12)
[2019-06-25] MEDS ORDERED: Magnesium Sulfate 1 GM IV* 1 GM/100 ML BAG IV ONE (11:30)
[2019-06-25] MEDS ORDERED: Atenolol TAB* 25 MG PO SCH (12:00)
[2019-06-25 12:23] LABS: Influenza A Molecular NEGATIVE (Negative); Influenza B Molecular NEGATIVE (Negative)
[2019-06-25 15:08] VITALS: BP 105/75
--- NOTE | 2019-06-26 00:03 | DS ---
CC: Dr. Christian Carter* DISCHARGE SUMMARY: DATE OF ADMISSION: 06/24/19 DATE OF DISCHARGE: 06/25/19 PRIMARY CARE PHYSICIAN: Dr. Christian Carter. PRIMARY DIAGNOSIS: Bradycardia. SECONDARY DIAGNOSES: 1. Atrial fibrillation. 2. Bipolar disorder. 3. Obesity, status post gastric bypass. CONSULTS: Dr. Octavio Hughes of Cardiology. DISCHARGE MEDICATIONS: 1. Atenolol 25 mg daily. 2. Divalproex 250 mg daily. 3. Quetiapine 150 mg at bed time. 4. Lamotrigine 100 mg in the morning, 150 mg in the evening. 5. Bupropion 100 mg twice a day. 6. Warfarin alternating 5 and 10 mg. 7. Acyclovir 500 mg daily. 8. Ferrous sulfate 325 mg daily. 9. Vitamin B12 500 mcg sublingual daily. 10. Vitamin C 500 mg daily. 11. Vitamin D3 1000 units daily. 12. Multivitamin one tablet daily. 13. Cetirizine 10 mg daily. 14. Omeprazole 20 mg daily. 15. Ondansetron 4 mg p.o. every 6 hours as needed for nausea. 16. Sildenafil 100 mg daily as needed for erectile dysfunction. 17. Albuterol one puff every 6 hours as needed for shortness of breath. HISTORY OF PRESENT ILLNESS: Mr. Yu is a 63-year-old man with atrial fibrillation, on warfarin; bipolar disorder and COPD, who presented to the emergency room due to shortness of breath and left-sided chest pain. The patient is from [place] but has been living in a camper between [facility] and [place]. He visits his mother who lives in [place] locally. The patient reports left-sided chest pain and shortness of breath came on all of sudden when he was sitting and reading. The pain was intermittent for a couple of hours and he began to feel faint and the pain was radiating down his left arm. The pain spontaneously resolved before presenting to the emergency room. HOSPITAL COURSE: In the emergency room, the patient denies left-sided pain, but he felt mildly short of breath. He reports taking diltiazem and atenolol on the night before and he has not taken any doses yet today. His heart rate was noted to be in 30s, but he was not symptomatic on standing. He denied palpitation, chest pain, nausea, vomiting, constipation, diarrhea, dysuria or changes in his vision. His blood pressure was noted to be 139/68. He was given a dose of atropine 0.5 mg and his heart rate went from 32 to the 40s, but quickly returned to the upper 30s. The patient was placed on transcutaneous pacer pads, that were not used but placed in the ICU for further monitoring. His atenolol and diltiazem doses were held. He was seen by Dr. Hughes of Cardiology, who recommended to monitor closely and rule out ACS. The patient had 3 negative troponins. He also underwent a TTE which showed LV valve thickness mildly increased but with normal systolic function. LA and RA severely dilated. Mitral valve trace regurgitation and pulmonary artery systolic pressure was in the normal range. Overnight the patient had no events and states he continues to feel stronger and was no longer short of breath. By next morning, the patient had heart rate in the 70s, so he was restarted on atenolol that morning. By the afternoon, his heart rate remained in the 70s and he was able to ambulate on the floor with his heart rate increasing to the 80s while walking. Of note, overnight while patient was asleep, his blood pressure was systolic in the 90s. However, upon waking him moving around, his blood pressure increased to 110s, even after atenolol. The patient felt strong and ready for discharge. He was educated to follow up closely with his outpatient providers given his changes in medications. He was educated to continue take his blood pressure and monitor his heart rate. He was also asked to recheck his INR shortly after discharge as he was supratherapeutic throughout admission. PERTINENT STUDIES AND LABS: CBC notable for mild anemia to 12.6 with MCV 90. BMP unremarkable. Troponin negative x3. LFTs unremarkable. TSH 2.13. HIV negative. Influenza A and B swabs negative. INR 4.14. EKG: Atrial fibrillation in the 30s without ischemic changes. Chest x-ray without acute cardiopulmonary disease. Transthoracic echocardiogram with EF 55 to 60% and mild valve thickness increases, LA and RA severely dilated. DISCHARGE PLAN: The patient was educated to follow up closely with his outpatient providers for prompt monitoring of his INR and vital signs. He should no longer take diltiazem until his outpatient appointments and his atenolol dose was cut by 75%. He will remain on atenolol 25 mg daily which is what he tolerated in the hospital. He was encouraged to monitor his blood pressure and heart rate daily. The patient was educated on return precautions, which included, but are not limited to recurrence of chest pain, shortness of breath or new symptoms of lightheadedness or syncope. He should eat healthy diet, low in processed foods and resume activity as tolerated. DISPOSITION: To home. CONDITION: Improved. TIME SPENT: Approximately 60 minutes was spent on discharge of this patient, more than half of which was at bedside for interview and physical exam along with care coordination. [id number]/[facility] #: [id number] JOHN
== END 2019-06-25 16:00 | disposition home or self-care (01) ==
LOC: ED 15:32 → ICU 16:42
PROVIDERS: ADMIT Internal Medicine; ATTEND Internal Medicine
DX: R00.1 Bradycardia, unspecified (principal); I48.91 Unspecified atrial fibrillation; F31.9 Bipolar disorder, unspecified; J44.9 Chronic obstructive pulmonary disease, unspecified; K21.9 Gastro-esophageal reflux disease without esophagitis; E66.9 Obesity, unspecified; Z98.84 Bariatric surgery status; Z79.899 Other long term (current) drug therapy; Z79.01 Long term (current) use of anticoagulants; R06.02 Shortness of breath; Z23 Encounter for immunization; Z87.891 Personal history of nicotine dependence
CPT/HCPCS: 36415; 71046; 80048; 80053; 83735; 84443; 84484; 85025; 85610; 87389; 87641; 90472; 90732; 93005; 93306; 96374; 99284; A9270-GY; G0008; G0378; J0461; J3475

== ENCOUNTER 2019-08-05 09:11 | Day surgery (SDC) | payer OTHER ==
[~2019-08-05 09:11] MED LIST: Buffered Lidocaine 1% SYRIN* 1 ML/SYRINGE INTRADERM ONE; Lactated Ringers 1000 ML Bag* 1,000 ML IV SCH
[2019-08-05] MEDS ORDERED: ceFAZolin 2 GM PREMIX in ORs 2 GM/50 ML BAG ONE (09:21)
[2019-08-05] MEDS ORDERED: fentaNYL* 50 MCG/ML 2 ML VIAL (100 MCG VIAL) ONE ×2 (09:33→11:11)
[2019-08-05] MEDS ORDERED: Midazolam* 1 MG/ML 2 ML VIAL (2 MG) ONE (09:33)
[2019-08-05 10:13] LABS: Activated Partial Thrombo Time 35.3 seconds (26.0-38.0); INR 0.96 (0.82-1.09)
[2019-08-05] MEDS ORDERED: Bupivacaine 0.5%* 50 ML MDV VIAL ONE (10:17)
[2019-08-05] MEDS ORDERED: Naloxone* 0.4 MG/ML 1 ML VIAL IV PRN (10:27)
[2019-08-05] MEDS ORDERED: Rocuronium* 10 MG/ML VIAL ONE (10:43)
[2019-08-05] MEDS ORDERED: Ondansetron INJ* 2 MG/ML VIAL ONE (10:53)
[2019-08-05] MEDS ORDERED: Lidocaine 2% PF* 10 ML AMP ONE (10:53)
[2019-08-05] MEDS ORDERED: Propofol* 10 MG/ML 20 ML BTL ONE (10:53)
[2019-08-05] MEDS ORDERED: Dexamethasone IV* 4 MG/ML 1 ML (4 MG) ONE (10:53)
[2019-08-05] MEDS ORDERED: Phenylephrine 40 MCG/ML SYRINGE ONE (11:00)
[2019-08-05] MEDS ORDERED: Metoprolol Tartrate IV* 1 MG/ML 5 ML VIAL ONE (11:52)
[2019-08-05] MEDS ORDERED: Ketorolac INJ* 30 MG/ML 1 ML VIAL ONE (12:17)
[2019-08-05] MEDS ORDERED: Labetalol IV* 5 MG/ML 20 ML VIAL IV PUSH ONE (12:37)
[2019-08-05] MEDS: HYDROmorphone INJ1* 1 MG/ML SYRINGE IV PRN ×2 (12:40→12:50)
[2019-08-05] MEDS ORDERED: oxyCODONE TAB* 5 MG TAB PO ONE (12:50)
[2019-08-05] MEDS ORDERED: oxyCODONE TAB* 5 MG TAB ONE (12:57)
[2019-08-05] MEDS ORDERED: HYDROmorphone INJ1* 1 MG/ML SYRINGE ONE (13:35)
[2019-08-05] MEDS ORDERED: HYDROmorphone INJ1* 1 MG/ML SYRINGE IV PRN (13:36)
[2019-08-05] MEDS ORDERED: Labetalol IV* 5 MG/ML 20 ML VIAL ONE (13:38)
[2019-08-05 14:20] VITALS: BP 135/85
--- NOTE | 2019-08-06 00:38 | OP ---
DATE OF OPERATION: 08/05/19 [facility] DATE OF : 59 SURGEON: Nando Carolina MD [place] TEAM LEADER: KONSTANTIN Escobar PRE-OP DIAGNOSIS: Incisional hernia. POST-OP DIAGNOSIS: Incisional hernia. OPERATIVE PROCEDURE: Repair of incisional hernia with mesh. INDICATIONS FOR PROCEDURE: Incisional hernia. Risks included, but not limited to bleeding, infection, injury to intraabdominal contents including the bowel, recurrence of the hernia were discussed with the patient, who seemed to understand and agreed to the procedure and all questions were answered. DESCRIPTION OF PROCEDURE: The patient was taken to the operating room and placed supine. Preoperative antibiotics were given. After the successful induction of general endotracheal anesthesia, the abdomen was prepped and draped in a sterile fashion. A left upper quadrant trocar was placed under direct visualization of the camera using a bladeless Optiview trocar. Pneumoperitoneum was achieved to 15 mmHg. The abdomen was scanned. There was no obvious injury from trocar placement. Adhesion of the colon was noted up against the anterior abdominal wall. Upper midline 8-mm trocar and a right upper quadrant 8-mm trocar were placed, and the 5-mm trocar was replaced with an 8-mm robotic trocar. The patient was placed in a slight Trendelenburg position. The robot was brought in and docked. The colon adhesion was taken down along an avascular plane. A small tubular portion of the colon right near the taenia was attached to the anterior abdominal wall and it was from the wall by leaving some of the peritoneum and adipose tissue on top of the colon. The area was inspected. There appeared to be no injury, but despite this I decided to put a 3-0 V-Loc suture around this tubular area centrally closing it in a running fashion. This was done then in two layers closing the colon over this area conservatively treating this in case that area of the bowel was thin and could possibly have eroded after taking it down. The hernia down to the lower end of the midline incision just above the pubis was easily apparent. The peritoneum was taken down creating a large flap. The defect was closed with a running 0 PDS Stratafix suture bringing the midline fascia together. A piece of ProGrip mesh was brought in, cut down slightly smaller about 6 x 8 cm and placed over the defect where it was closed, sutured in place with the 0 suture along the edge of the mesh and the peritoneum was then closed with a running 3-0 V-Loc suture completely covering the mesh. All needles were removed from the abdomen. Needle count was correct. The abdomen was scanned. There was no obvious injury noted. The omentum laid over the bowel as well. Pneumoperitoneum was released from the abdomen after the robot was undocked. The trocars were removed. The skin was all closed with 3- 0 Monocryl and glue was applied. The patient tolerated the procedure well. He was extubated and taken to recovery room in stable condition. [id number]/[facility] #: [id number] JOHN
== END 2019-08-05 14:41 | disposition home or self-care (01) ==
LOC: OR 09:11
PROVIDERS: ATTEND Surgery
DX: K43.2 Incisional hernia without obstruction or gangrene (principal); I48.91 Unspecified atrial fibrillation; I10 Essential (primary) hypertension; F41.8 Other specified anxiety disorders; J44.9 Chronic obstructive pulmonary disease, unspecified; Z79.01 Long term (current) use of anticoagulants; Z98.84 Bariatric surgery status; Z87.891 Personal history of nicotine dependence; Z68.22 Body mass index [BMI] 22.0-22.9, adult; Z88.6 Allergy status to analgesic agent; Z88.5 Allergy status to narcotic agent; G47.30 Sleep apnea, unspecified
CPT/HCPCS: 36415; 85610; 85730; A9270-GY; C1781; J0690; J1100; J1170; J1885; J2001; J2250; J2405; J2704; J3010; J3490

== ENCOUNTER 2024-07-24 04:31 | Inpatient (IN) ==
[2024-07-24 04:57] LABS: ABS Basophils 0.1 10^3/uL (0.0-0.1); ABS Eosinophils 0.1 10^3/uL (0.0-0.5); ABS Lymphocytes 1.5 10^3/uL (1.0-4.8); ABS Monocytes 0.1 10^3/uL (0.0-1.1); ABS Neutrophils 3.6 10^3/uL (1.5-7.6); ABS Nucleated RBC 0.01 10^3/ul; Eosinophil % 1.9 %; Hemoglobin 15.3 g/dL (13.2-16.3); Lymphocyte % 28.3 %; Mean Corpuscular Hgb Conc 34.7 g/dL (31-36); Mean Platelet Volume 8.5 fL (7.5-11.2); Nucleated Red Blood Cells % 0.1 %/100WBC (0.0-0.8); Platelet Count 180 10^3/uL (150-450); Red Blood Count 4.63 10^6/uL (4.06-5.63); Red Cell Distribution Width 14.1 % (12-17); White Blood Count 5.3 10^3/uL (3.6-10.2)
[2024-07-24 05:02] LABS: INR 0.96 (0.85-1.14)
[2024-07-24 05:35] LABS: Albumin 3.9 g/dL (3.5-5.7); Albumin/Globulin Ratio 2.1 (1-3); Calcium 9.1 mg/dL (8.6-10.3); Creatinine, Serum 1.08 mg/dL (0.67-1.17); Globulin 1.9 g/dL (2-4); Total Bilirubin 0.4 mg/dL (0.2-1.0); Total Protein 5.8 g/dL (6.4-8.9); eGFR CKD-EPI 75.7 (>60)
[2024-07-24] MEDS: Famotidine IV 10 MG/ML 2 ml VIAL (20 mg) IV SLOW PU ONE (05:56)
[2024-07-24] MEDS: Morphine 4 MG/ML VIAL (1 ml) IV ONE ×3 (05:56→09:52)
[2024-07-24] MEDS: Ondansetron 4 mg VIAL 2 MG/ML 2 ml VIAL IV ONE (05:57)
[2024-07-24 06:24] LABS: High Sensitivity Troponin 1 Hr 6 pg/mL (<20)
[2024-07-24] MEDS: Iohexol 350 (CONTRAST) 500 ML MDV IV ONE (06:40)
[2024-07-24] MEDS: Lactated Ringers 1000 ml BAG 1,000 ML IV ONE (07:46)
[2024-07-24] MEDS: Piperacillin/Tazobac 3.375 BAG 3.375 GM/100 ML BAG IV ONE (09:00)
[2024-07-24 09:59] LABS: C Reactive Protein 12.47 mg/L (<8.01)
[2024-07-24] MEDS ORDERED: Zosyn per Pharmacy NOTE FOLLOW UP SCH (11:00)
[2024-07-24] MEDS ORDERED: Sulfur Hexaflouride MICROSPHR 25 MG VIAL IV PRN (11:04)
[2024-07-24] MEDS: NS 0.9% 1000 ml BAG 1,000 ML IV ONE (14:46)
[2024-07-24] MEDS: ZOSYN 3.375 GM Q8H per EXTENDED INFUSION IV SCH ×2 (15:41→21:47)
[2024-07-24] MEDS: NS 0.9% 1000 ml BAG 1,000 ML IV SCH (15:41)
[2024-07-24] MEDS: DILTIAZEM 360 MG PO SCH (18:27)
[2024-07-24] MEDS ORDERED: Calcium Carb (TUMS) 500 mg CHEW TAB PO PRN (20:07)
[2024-07-24] MEDS: Morphine 2 MG/ML SYRINGE IV PRN (21:41)
[2024-07-24] MEDS: Ondansetron 4 mg VIAL 2 MG/ML 2 ml VIAL IV PRN (21:41)
[2024-07-24] MEDS ORDERED: Morphine 2 MG/ML SYRINGE IV PRN (23:04)
[2024-07-25] MEDS: NS 0.9% 500 ml BAG 500 ML IV SCH (02:00)
[2024-07-25] MEDS: NS 0.9% IV ONE ×2 (02:30→02:59)
[2024-07-25 02:31] LABS: ABS Basophils 0.1 10^3/uL (0.0-0.1); ABS Lymphocytes 0.8 10^3/uL (1.0-4.8); ABS Monocytes 0.6 10^3/uL (0.0-1.1); ABS Neutrophils 7.9 10^3/uL (1.5-7.6); ABS Nucleated RBC 0.01 10^3/ul; Eosinophil % 0.2 %; Hematocrit 39.3 % (38-53); Hemoglobin 13.3 g/dL (13.2-16.3); Lymphocyte % 8.3 %; Mean Corpuscular Hemoglobin 32.4 pg (27-33); Mean Corpuscular Hgb Conc 33.9 g/dL (31-36); Mean Corpuscular Volume 95.8 fL (80-97); Mean Platelet Volume 8.8 fL (7.5-11.2); Nucleated Red Blood Cells % 0.1 %/100WBC (0.0-0.8); Platelet Count 145 10^3/uL (150-450); Red Blood Count 4.11 10^6/uL (4.06-5.63); Red Cell Distribution Width 14.1 % (12-17); White Blood Count 9.4 10^3/uL (3.6-10.2)
[2024-07-25 06:01] LABS: ABS Lymphocytes 0.7 10^3/uL (1.0-4.8); ABS Monocytes 0.6 10^3/uL (0.0-1.1); ABS Neutrophils 6.9 10^3/uL (1.5-7.6); Eosinophil % 0.3 %; Hematocrit 37.9 % (38-53); Hemoglobin 12.8 g/dL (13.2-16.3); Lymphocyte % 8.8 %; Mean Corpuscular Hemoglobin 32.4 pg (27-33); Mean Corpuscular Hgb Conc 33.9 g/dL (31-36); Mean Corpuscular Volume 95.6 fL (80-97); Mean Platelet Volume 8.6 fL (7.5-11.2); Platelet Count 129 10^3/uL (150-450); Red Blood Count 3.96 10^6/uL (4.06-5.63); Red Cell Distribution Width 13.7 % (12-17); White Blood Count 8.4 10^3/uL (3.6-10.2)
[2024-07-25 06:44] LABS: Calcium 7.6 mg/dL (8.6-10.3); Creatinine, Serum 0.84 mg/dL (0.67-1.17); Magnesium 1.5 mg/dL (1.9-2.7); eGFR CKD-EPI 96.2 (>60)
[2024-07-25] MEDS: NS 0.9% 1000 ml BAG 1,000 ML IV SCH (08:15)
[2024-07-25] MEDS: buPROPion SR 200 mg TAB.SR PO SCH (08:27)
[2024-07-25] MEDS: Cholecalciferol (VIT D3) 1,000 unit TAB PO SCH (08:28)
[2024-07-25] MEDS: Multivitamins/Minerals TAB PO SCH (08:29)
[2024-07-25] MEDS: ZOSYN 3.375 GM Q8H per EXTENDED INFUSION IV SCH (08:29)
[2024-07-25] MEDS ORDERED: Magnesium Sulfate IV 1GM/100ML 1 GM/100 ML BAG IV ONE (12:58)
[2024-07-25] MEDS: Magnesium Sulfate 2 gm BAG 2 GM/50 ML BAG IVPB ONE (13:06)
[2024-07-25] MEDS ORDERED: Bupivacaine 0.25% SDV 30 ML ONE (15:39)
[2024-07-25] MEDS ORDERED: Lidocaine 2% PF 5 ML VIAL ONE (15:47)
[2024-07-25] MEDS ORDERED: Rocuronium 50 mg VIAL 10 mg/ml 5 ml VIAL (50 mg) ONE ×4 (15:48→18:58)
[2024-07-25] MEDS ORDERED: Propofol 10 MG/ML 20 ML BTL ONE (15:48)
[2024-07-25] MEDS ORDERED: Phenylephrine IV 10 MG/ML 1 ml VIAL ONE (15:49)
[2024-07-25] MEDS ORDERED: fentaNYL 100 mcg/2 ml 50 MCG/ML VIAL ONE ×4 (16:08→20:11)
[2024-07-25] MEDS ORDERED: ceFAZolin VIAL VIAL ONE (16:37)
[2024-07-25] MEDS ORDERED: Dexamethasone IV 4 MG/ML VIAL 1 ml VIAL ONE (17:03)
[2024-07-25] MEDS ORDERED: Ondansetron 4 mg VIAL 2 MG/ML 2 ml VIAL ONE ×2 (17:03→20:11)
[2024-07-25] MEDS ORDERED: Labetalol IV 5 MG/ML 20 ml VIAL ONE (17:27)
[2024-07-25] MEDS ORDERED: Morphine 2 MG/ML SYRINGE IV PRN (20:03)
[2024-07-25] MEDS: fentaNYL 100 mcg/2 ml 50 MCG/ML VIAL IV PRN (20:15)
[2024-07-25] MEDS: Ondansetron 4 mg VIAL 2 MG/ML 2 ml VIAL IV PRN (20:15)
[2024-07-25] MEDS ORDERED: Naloxone 0.4 mg VIAL 0.4 mg/ml 1 ml VIAL IV PRN (20:32)
[2024-07-25] MEDS ORDERED: Metoclopramide 5 MG/ML VIAL (10 mg) IV PRN (20:32)
[2024-07-25] MEDS ORDERED: NS 0.45% 1000 ml BAG 1,000 ML IV SCH (21:00)
[2024-07-25] MEDS: fentaNYL 100 mcg/2 ml 50 MCG/ML VIAL IV SLOW PU PRN (21:39)
[2024-07-25] MEDS: Scopolamine 1 mg/72hr PATCH TRANSDERM ONE (22:02)
[2024-07-25] MEDS: Magnesium Sulfate IV 1GM/100ML 1 GM/100 ML BAG IV ONE (22:57)
[2024-07-25] MEDS: Acetaminophen IV 1 GM/100ML 1,000 MG/100 ML BAG IV PRN (23:02)
[2024-07-26 06:37] LABS: ABS Lymphocytes 0.3 10^3/uL (1.0-4.8); ABS Monocytes 0.4 10^3/uL (0.0-1.1); ABS Neutrophils 7.4 10^3/uL (1.5-7.6); ABS Nucleated RBC 0.01 10^3/ul; Hematocrit 36.1 % (38-53); Hemoglobin 12.5 g/dL (13.2-16.3); Lymphocyte % 3.9 %; Mean Corpuscular Hemoglobin 32.7 pg (27-33); Mean Corpuscular Hgb Conc 34.6 g/dL (31-36); Mean Corpuscular Volume 94.7 fL (80-97); Mean Platelet Volume 9.2 fL (7.5-11.2); Nucleated Red Blood Cells % 0.1 %/100WBC (0.0-0.8); Platelet Count 127 10^3/uL (150-450); Red Blood Count 3.82 10^6/uL (4.06-5.63); Red Cell Distribution Width 13.7 % (12-17); White Blood Count 8.2 10^3/uL (3.6-10.2)
[2024-07-26 06:58] LABS: Albumin 2.8 g/dL (3.5-5.7); Albumin/Globulin Ratio 1.6 (1-3); Calcium 7.6 mg/dL (8.6-10.3); Creatinine, Serum 0.72 mg/dL (0.67-1.17); Globulin 1.8 g/dL (2-4); Magnesium 2.1 mg/dL (1.9-2.7); Total Bilirubin 0.6 mg/dL (0.2-1.0); Total Protein 4.6 g/dL (6.4-8.9); eGFR CKD-EPI 100.8 (>60)
[2024-07-26] MEDS: Morphine 2 MG/ML SYRINGE IV PRN (09:27)
[2024-07-26] MEDS: buPROPion SR 200 mg TAB.SR PO SCH (09:31)
[2024-07-26] MEDS: Piperacillin/Tazobac 3.375 BAG 3.375 GM/100 ML BAG IV SCH (10:53)
[2024-07-26] MEDS: Enoxaparin 40 MG/0.4 ML SYR SUBCUT SCH (10:56)
[2024-07-27] MEDS: Senna TAB 8.6 mg TAB PO SCH (00:40)
[2024-07-27] MEDS: Buffered Lidocaine 1% SYRIN 1 ml INTRADERM ONE (08:43)
[2024-07-27] MEDS: Lactated Ringers 1000 ml BAG 1,000 ML IV SCH (08:43)
[2024-07-27] MEDS: Acetaminophen IV 1 GM/100ML 1,000 MG/100 ML BAG IV ONE (08:43)
[2024-07-27] MEDS: Polyethylene Glycol 3350 17 GM PACKET PO SCH (08:57)
[2024-07-27 13:25] VITALS: BP 107/73
== END 2024-07-27 15:18 | disposition home or self-care (01) | DRG 854 ==
LOC: ED 04:31 → EDHOLD 10:23 → MEDTELE 15:34
PROVIDERS: ADMIT Student in an Organized Health Care Education/Training Program; ATTEND Student in an Organized Health Care Education/Training Program